=== PATIENT | male | born 1935 | race Caucasian/White ===

== ENCOUNTER 2017-05-24 11:12 | Inpatient (IN) | payer MEDICARE, OTHER ==
[~2017-05-24] VITALS: Ht 162.6 cm; Wt 67.4 kg
[2017-05-24] VITALS (12 sets, daily range): BP systolic 87–122; BP diastolic 45–61; PULSE 60–88; RESP 19–20; Ht 162.6 cm; Wt 67.4 kg
[~2017-05-24 11:12] MED LIST: ACET-2047 PO; ASPI81TA3 PO; CLON-379 PO; DOCU-144 PO; EPO4ESRD SC; FER325 PO; FOLI-49 PO; FOLI1CAP PO; LEVO500T72 PO; NIFE30TA60 PO; OMEP20CA16 PO; POLY17PO6 PO; SENN-8 PO; SEVE800T10 PO; SIME80TA PO
[2017-05-24] MEDS ORDERED: ACETAMINOPHEN 650 MG SUPP PR STA (11:25)
[2017-05-24] MEDS ORDERED: CEFEPIME 2GM/50 ML (PMX) 50 ML IVPB STA (11:25)
[2017-05-24] MEDS ORDERED: VANCOMYCIN 1 GM (PMX) 250 ML IVPB ONE (11:30)
[2017-05-24 11:51] LABS: ADD SCAN DIFF NO
[2017-05-24 12:11] LABS: ABNORMAL IP MESSAGE 1; BASOPHIL # 0.1 10^3/ul (0.0-0.1); BASOPHILS % 0.3 % (0.0-2.0); EOSINOPHILS % 0.1 % (0.0-7.0); HEMATOCRIT 37.7 % (42.0-52.0); HEMOGLOBIN 12.2 g/dl (14.0-18.0); LYMPHOCYTES # 1.7 10^3/ul (0.8-2.9); MEAN CORPUSCULAR HEMOGLOBIN 32.8 pg (29.0-33.0); MEAN CORPUSCULAR HGB CONC 32.4 g/dl (32.0-37.0); MEAN CORPUSCULAR VOLUME 101.3 fl (82.0-101.0); MEAN PLATELET VOLUME 10.8 fl (7.4-10.4); MONOCYTE # 1.8 10^3/ul (0.3-0.9); MONOCYTES % 9.6 % (0.0-11.0); NEUTROPHIL # 14.6 10^3/ul (1.6-7.5); NEUTROPHILS % 76.8 % (39.0-77.0); PLATELET COUNT 168 10^3/UL (140-415); RED BLOOD COUNT 3.72 10^6/ul (4.70-6.10); RED CELL DISTRIBUTION WIDTH 13.9 % (11.5-14.5)
[2017-05-24 12:13] LABS: ALBUMIN 4.2 g/dl (3.3-4.9); CALCIUM 9.3 mg/dl (8.4-10.2); CREATININE 7.59 mg/dl (0.61-1.24); POTASSIUM 4.4 mmol/L (3.5-5.1); TOTAL PROTEIN 7.9 g/dl (6.1-8.1)
[2017-05-24 12:14] LABS: ALBUMIN/GLOBULIN RATIO 1.13
[2017-05-24 12:15] LABS: INR 1.19; PROTIME 15.2 Sec (12.2-14.2); PT RATIO 1.2
[2017-05-24 12:16] LABS: PARTIAL THROMBOPLASTIN TIME 32.5 Sec (25.0-35.0)
[2017-05-24 12:25] LABS: TROPONIN-I 0.076 ng/ml (0.00-0.12)
--- NOTE | 2017-05-24 12:46 | RADRPT ---
PROCEDURE: XR Chest. CLINICAL INDICATION: Possible sepsis. TECHNIQUE: Single frontal view of the chest was obtained. COMPARISON: Chest x-ray 01/01/2016 12:48 p.m. FINDINGS: A dialysis catheter enters from a left internal or left subclavian approach with its tip in the supe rior vena cava and proximal right atrium. Degenerative osteophytes are noted in the thoracic spin e. The heart is enlarged. The cardiomediastinal silhouette and hilar structures are normal. The pu lmonary vasculature is increased. There are vascular calcifications in the aortic arch. There are b ilateral perihilar and basilar infiltrates which obscure the diaphragms. There are bilateral pleura l effusions. IMPRESSION: 1. Cardiomegaly with congestive heart failure interstitial pulmonary edema with bilateral pleural ef fusions. The pulmonary edema has worsened as compared to 01/01/2016. 2. Consolidative infiltrate/atelectasis obscuring the diaphragms. 3. Dialysis catheter near the junction of the right atrium superior vena cava. 4. Spondylosis of the thoracic spine. Or 5 atherosclerosis of the aortic arch. RPTAT:AAJJ Physician Reggie Date Time Electronically viewed and signed by Physician Reggie on 05/24/2017 12:45 BHUPINDER/
[2017-05-24] MEDS ORDERED: ACETAMINOPHEN 325 MG TAB PO PRN ×3 (13:00→14:00)
[2017-05-24] MEDS ORDERED: ONDANSETRON 4 MG INJ IV PRN ×2 (13:00→14:00)
[2017-05-24] MEDS ORDERED: NEPH PO (13:15)
[2017-05-24] MEDS ORDERED: CARV12.579 PO (13:15)
[2017-05-24] MEDS ORDERED: PANT40TA3 PO (13:16)
[2017-05-24] MEDS ORDERED: AMLO-147 PO (13:16)
[2017-05-24] MEDS ORDERED: DOCU-159 PO (13:17)
[2017-05-24] MEDS ORDERED: HYDR-3672 PO (13:18)
[2017-05-24] MEDS ORDERED: LACT20SO2 PO (13:19)
[2017-05-24] MEDS ORDERED: DEXT30DR5 BOTH EYES (13:19)
[2017-05-24] MEDS ORDERED: ENOX30DI10 SQ (13:20)
[2017-05-24] MEDS ORDERED: IPRA3AMP INHALATION (13:21)
[2017-05-24] MEDS ORDERED: ALBU2.5V3 NEB (13:21)
[2017-05-24] MEDS ORDERED: UDROBDM PO (13:23)
[2017-05-24] MEDS ORDERED: OLAN2.5T4 PO (13:23)
[2017-05-24] MEDS ORDERED: NITROGLYCERIN (SL) 0.4 MG TAB SL PRN (14:00)
[2017-05-24] MEDS ORDERED: morphine 2 MG INJ IV PRN (14:00)
[2017-05-24] MEDS ORDERED: MAGNESIUM HYDROXIDE 30ML CUP PO PRN (14:00)
[2017-05-24] MEDS ORDERED: SENNA/DOCUSATE NA (8.6MG/50MG) TAB PO PRN (14:00)
[2017-05-24] MEDS ORDERED: ALBUTEROL/IPRATROPIUM (NEB) 3 ML AMP INH PRN (14:00)
[2017-05-24] MEDS ORDERED: LACTULOSE 30ML CUP PO PRN (14:00)
[2017-05-24] MEDS ORDERED: LORAZEPAM 0.5 MG TAB PO PRN (14:00)
[2017-05-24] MEDS ORDERED: DOCUSATE SODIUM 100 MG CAP PO PRN (14:00)
[2017-05-24] MEDS ORDERED: NACL 0.9% 3 ML SYG IV SCH (14:00)
[2017-05-24] MEDS ORDERED: HYDROCODONE/APAP (5/325) TAB PO PRN (14:00)
[2017-05-24] MEDS ORDERED: VANCOMYCIN IV PER PHARMACY XX SCH (14:00)
[2017-05-24] MEDS ORDERED: ALBUTEROL 0.083% (NEB) 2.5 MG/3 ML AMP NEB PRN (14:00)
[2017-05-24] MEDS ORDERED: NA PHOSPHATE/BIPHOS 133 ML ENEMA PR PRN (14:00)
[2017-05-24] MEDS ORDERED: GUAIFENESIN/DM 5ML CUP PO PRN (14:00)
--- NOTE | 2017-05-24 14:56 | ERA ---
ER Documentation Chief Complaint Date/Time DATE: 05/24/17 TIME: 14:54 Chief Complaint FEVER AND ELEVATED WBC FOR 1 WK. NO COUGH. NO SOB NOTED. NO CHEST PAIN HPI Patient is an 82-year-old male who presents with fever and high white blood cell count. Please note the history and physical exam is limited secondary to the patient's mental status. The patient was transferred from a nursing facility for fever and leukocytosis. His primary doctor is Dr. Bharath Silvestre. He is a DO NOT RESUSCITATE. Upon review of old medical records the patient one previous visit to the ER in 2016. ROS All systems reviewed and are negative except as per history of present illness. Medications Home Meds Reported Medications Olanzapine* (Zyprexa*) 2.5 Mg Tablet, 2.5 MG PO DAILY, #30 TAB 05/24/17 Guaifenesin-Dextromethorphan* (Robitussin* DM) 100MG/10MG/5ML Syrup, 10 ML PO QID Y for COUGH, ML 05/24/17 Ipratropium-Albuterol (Ipratropium-Albuterol) 0.5-3 Mg/3 Ml Ampul.neb, 3 ML INHALATION Q6 Y for WHEEZING AND SOB, #30 VIAL 05/24/17 Albuterol Sulfate* (Albuterol Sulfate* Neb) 0.083%-3 Ml Neb, 2.5 MG NEB QID Y for WHEEZING AND SOB, #30 VIAL 05/24/17 Enoxaparin Sodium* (Lovenox*) 30 Mg/0.3 Ml Disp.syrin, 30 MG SQ DAILY, SYR 05/24/17 Lactulose* (Lactulose*) 20 Gm/30 Ml Solution, 20 GM PO QID Y for CONSTIPATION, ML 05/24/17 Dextran 70/Hypromellose (Artificials Tears Drops) 30 Ml Drops, 1 DROP BOTH EYES QID, BOTTLE 05/24/17 Hydralazine Hcl* (Hydralazine Hcl*) 50 Mg Tab, 50 MG PO Q8, #90 TAB HOLD FOR SBP<110 05/24/17 Docusate Sodium* (Docusate Sodium*) 100 Mg Capsule, 100 MG PO BID, #60 CAP 05/24/17 Amlodipine Besylate* (Amlodipine Besylate*) 10 Mg Tablet, 10 MG PO DAILY, #30 TAB 05/24/17 Pantoprazole* (Protonix*) 40 Mg Tablet.dr, 40 MG PO AC BREAKFAST, TAB 05/24/17 Multivit/Ca Carb/B Cmplx/Fa* (Nohemi-Brendan*) 1 Tab Tab, 1 TAB PO DAILY, TAB 05/24/17 Carvedilol* (Carvedilol*) 12.5 Mg Tablet, 12.5 MG PO BID, #60 TAB HOLD FOR SBP<110 HR <60 05/24/17 Simethicone* (Anti-Gas/80*) 80 Mg Tab.chew, 80 MG PO Q6H Y for DISTENSION/GAS/ BLOATING, TAB.CHEW 01/01/16 Acetaminophen* (Acetaminophen*) 650 Mg Tablet, 650 MG PO Q6H Y for PAIN AND OR ELEVATED TEMP, #30 TAB 01/01/16 Sennosides/Docusate Sodium* (Senna-S*) 1 Tab Tablet, 2 TAB PO QHS Y for CONSTIPATION, TAB 01/01/16 Folic Acid/Vitamin B Comp W-C (Nephrocaps Capsule) 1 Mg Capsule, 1 MG PO DAILY, CAP 01/01/16 Discontinued Reported Medications Polyethylene Glycol* (Miralax*) 17 Gm Powd.pack, 17 GM PO DAILY, #30 PACKET 01/01/16 Ferrous Sulfate* (Ferrous Sulfate*) 325 Mg Tabec, 325 MG PO TID, TAB 01/01/16 Docusate Sodium* (Colace*) 100 Mg Capsule, 100 MG PO BID Y for CONSTIPATION, # 60 CAP 01/01/16 Aspirin* (Aspirin* Chew) 81 Mg Tab.chew, 81 MG PO DAILY, TAB.CHEW 01/01/16 Omeprazole* (Omeprazole*) 20 Mg Capsule.dr, 20 MG PO DAILY, #30 CAP 01/01/16 Sevelamer Hcl* (Renagel*) 800 Mg Tablet, 1600 MG PO WITH MEALS, TAB 01/01/16 Nifedipine* (Nifedipine ER*) 30 Mg Tablet.sa, 30 MG PO DAILY, TAB.SA 01/01/16 Folic Acid* (Folic Acid*) 1 Mg Tablet, 1 MG PO DAILY, TAB 01/01/16 Discontinued Scripts Levofloxacin* (Levaquin*) 500 Mg Tablet, 500 MG PO DAILY for 6 Days, TAB Prov:LASHAWN LINTON V. MICA MINER 01/04/16 Clonidine Hcl* (Clonidine Hcl*) 0.1 Mg Tab, 0.1 MG PO BID for 30 Days, TAB hold for SBP<120 mm hg Prov:LASHAWN LINTON V. MICA MINER 01/04/16 Epoetin Zev (Epogen) 4,000 Units/Ml Soln, 4000 UNITS SC TuThSa@17 for 30 Days Prov:LASHAWN LINTON V. MICA MINER 01/04/16 Allergies Allergies: Coded Allergies: No Known Allergy (Unverified , 05/24/17) PMhx/Soc History of Surgery: Yes (left chest permacath) Anesthesia Reaction: No Hx Neurological Disorder: Yes (dementia) Hx Respiratory Disorders: No Hx Cardiac Disorders: Yes (hypertension) Hx Psychiatric Problems: Yes (dementia) Hx Alcohol Use: No Hx Substance Use: No Hx Tobacco Use: No Smoking Status: Never smoker FmHx Unable to obtain Physical Exam Vitals Vital Signs Date Time Temp Pulse Resp B/P Pulse Ox O2 Delivery O2 Flow Rate FiO2 05/24/17 11:25 Nasal Cannula 3 05/24/17 11:16 98.9 81 22 101/51 99 Physical Exam Const: Chronically ill Head: Atraumatic Eyes: Normal Conjunctiva ENT: Normal External Ears, Nose and Mouth. Neck: Full range of motion..~ No meningismus. Resp: Decreased breath sounds bilaterally Cardio: Regular rate and rhythm, no murmurs Abd: Soft, non tender, non distended. Normal bowel sounds Skin: No petechiae or rashes Back: No midline or flank tenderness Ext: No cyanosis, or edema Neur: Altered and does not respond to voice or commands Result Diagram: 05/24/17 1125 05/24/17 1125 Results 24 hrs Laboratory Tests Test 05/24/17 11:25 White Blood Count 19.010^3/ul Red Blood Count 3.7210^6/ul Hemoglobin 12.2g/dl Hematocrit 37.7% Mean Corpuscular Volume 101.3fl Mean Corpuscular Hemoglobin 32.8pg Mean Corpuscular Hemoglobin Concent 32.4g/dl Red Cell Distribution Width 13.9% Platelet Count 38561^3/UL Mean Platelet Volume 10.8fl Neutrophils % 76.8% Lymphocytes % 9.0% Monocytes % 9.6% Eosinophils % 0.1% Basophils % 0.3% Nucleated Red Blood Cells % 0.0/100WBC Neutrophils # 14.610^3/ul Lymphocytes # 1.710^3/ul Monocytes # 1.810^3/ul Eosinophils # 0.010^3/ul Basophils # 0.110^3/ul Nucleated Red Blood Cells # 0.010^3/ul Prothrombin Time 15.2Sec Prothrombin Time Ratio 1.2 INR International Normalized Ratio 1.19 Activated Partial Thromboplast Time 32.5Sec Sodium Level 142mmol/L Potassium Level 4.4mmol/L Chloride Level 102mmol/L Carbon Dioxide Level 22mmol/L Anion Gap 22 Blood Urea Nitrogen 76mg/dl Creatinine 7.59mg/dl Glucose Level 101mg/dl Lactic Acid Level 1.3mmol/L Calcium Level 9.3mg/dl Total Bilirubin 0.0mg/dl Direct Bilirubin 0.00mg/dl Indirect Bilirubin 0.0mg/dl Aspartate Amino Transf (AST/SGOT) 78IU/L Alanine Aminotransferase (ALT/SGPT) 60IU/L Alkaline Phosphatase 183IU/L Troponin I 0.076ng/ml Total Protein 7.9g/dl Albumin 4.2g/dl Globulin 3.70g/dl Albumin/Globulin Ratio 1.13 Current Medications Medications (Trade) Dose Ordered Sig/Kaden Route PRN Reason Start Time Stop Time Status Last Admin Dose Admin Acetaminophen 650 mg 650 mg ONCE STAT [place] 05/24/17 11:25 05/24/17 11:27 DC 05/24/17 11:36 Cefepime HCl 50 ml @ 100 mls/hr ONCE STAT IVPB 05/24/17 11:25 05/24/17 11:54 DC 05/24/17 11:44 Vancomycin HCl (Vancocin) 250 ml @ 125 mls/hr ONCE ONCE IVPB 05/24/17 11:30 05/24/17 13:29 DC 05/24/17 12:22 Procedures/MDM Chest x-ray shows pneumonia and pulmonary edema per radiology. EKG read by me: Rate/Rhythm: Regular rate and rhythm at a normal rate Intervals: Normal Impression: No evidence of ischemia or arrhythmia Patient is an 82-year-old male presents with fever and leukocytosis likely from pneumonia. The patient was given broad-spectrum antibiotics with vancomycin and cefepime. He is a dialysis patient. At this point I doubt sepsis as there are no sirs criteria other than the elevated white blood cell count. The patient will be admitted to the care of Dr. Hester from the panel team to a medical surgical bed. The patient has a poor prognosis given his age and comorbidities. I doubt pneumothorax or pulmonary embolism. Departure Diagnosis: Primary Impression: Pneumonia Qualified Code: J18.9 - Pneumonia due to infectious organism, unspecified laterality, unspecified part of lung Additional Impressions: Leukocytosis Qualified Code: D72.829 - Leukocytosis, unspecified type Anemia Qualified Code: D64.9 - Anemia, unspecified type Condition: Stable ALCIRA SOOD MD May 24, 2017 14:56
[2017-05-24 16:24] LABS: INR 1.18; PROTIME 15.1 Sec (12.2-14.2); PT RATIO 1.2
[2017-05-24 16:33] LABS: PARTIAL THROMBOPLASTIN TIME 33.7 Sec (25.0-35.0)
--- NOTE | 2017-05-24 16:35 | HP ---
DATE OF ADMISSION: 05/24/2017 CHIEF COMPLAINT: This is an 82-year-old male sent in from [facility] because of fever and elevate d white blood cell count. HISTORY OF PRESENT ILLNESS: An 82-year-old male with past medical history based on records of demen tia, essential hypertension, prior pneumonia healthcare-associated, history of end-stage renal disea se on hemodialysis, who was sent in earlier today from [facility] because of elevated white blood cell count and fever. Most of the information is obtained from the ER documentation as the patient is unable to provide full history and physical presently. He was supposed to get dialysis today, bu t was not able to get that. When he came in today, he was found with elevated white blood cell coun t of 19,000 and chest x-ray showed signs of possible CHF versus pneumonia versus pulmonary edema. T he patient was given a dose of antibiotic as well and breathing treatment. PAST MEDICAL HISTORY: As stated above. ALLERGIES: NO KNOWN DRUG ALLERGIES. HOME MEDICATIONS: Include: 1. Albuterol nebulizers q.i.d. p.r.n. 2. Lovenox 30 mg subcutaneous daily. 3. Amlodipine 10 mg daily. 4. Coreg 12.5 mg b.i.d. 5. Hydralazine 50 mg q.8h. 6. Tylenol 650 p.o. q.6h. p.r.n. 7. Zyprexa 2.5 mg daily. 8. Lactulose 20 grams q.i.d. p.r.n. 9. Robitussin q.i.d. p.r.n. 10. Artificial Tears drops q.i.d. 11. Colace 100 mg b.i.d. 12. Protonix 40 mg every morning. 13. Senna 2 tabs at bedtime p.r.n. 14. Simethicone 80 mg q.6h. p.r.n. 15. Nephrocaps capsule 1 mg daily. 16. Nohemi-Brendan 1 tab daily. SOCIAL HISTORY: Negative for smoking, drinking, or IV drug abuse. PAST SURGICAL HISTORY: He has had a left chest PermCath in the past. FAMILY HISTORY: Unknown. PHYSICAL EXAMINATION: VITAL SIGNS: Today, temperature max 98.9, pulse 81, respirations 22, blood pressure 101/51, saturat ing at 99% nasal cannula. GENERAL: The patient lying in bed, no acute distress. HEENT: Pupils equal, round, react to light. Extraocular muscles intact. NECK: Supple, no thyromegaly. LUNGS: Slightly decreased breath sounds bilaterally. CARDIOVASCULAR: S1, S2 heard. No rubs or gallops. ABDOMEN: Soft, nontender, nondistended. Normal bowel sounds. No rebound or guarding. MUSCULOSKELETAL: No lower extremity edema bilaterally. NEUROLOGIC: Unable to fully assess as the patient is altered. LABORATORY DATA: WBC 19.0, hemoglobin 12.2, hematocrit 37.7, platelets 168. Sodium 142, potassium 4.4, chloride 102, CO2 of 23, BUN 76, creatinine 7.59, glucose 101. The LFTs are essentially normal except the AST is a little high at 78, alkaline phosphatase is 183. We mentioned the chest x-ray r esults. ASSESSMENT AND PLAN: An 82-year-old male coming in with history of end-stage renal disease on dialy sis, and hypertension, who comes in with elevated white blood cell count and fevers, signs of sepsis secondary to pneumonia. 1. Sepsis, again secondary to pneumonia is likely. Admit the patient to medical/surgical floor. G et PT and OT consults. Check TSH, A1c, lipid panel. Recheck a 2D echocardiogram as well. As there are signs of sepsis secondary to pneumonia, there could be a congestive heart failure component as well. The patient will have DuoNeb p.r.n. Put him on broad-spectrum antibiotics, follow up final c ulture results. Tylenol p.r.n. pain and fevers as well. Low-dose IV fluids. 2. History of essential hypertension. Continue current cardiac medications as well. Again, PT and OT consults. 3. Gastrointestinal prophylaxis. He will be on proton pump inhibitor. 4. Deep venous thrombosis prophylaxis, heparin subcutaneously. 5. End-stage renal disease on dialysis. Again, we will get a renal consult. Continue Nohemi-Brendan. Monitor BUN and creatinine levels in the morning daily. Dictated By: AMADOU VAZQUEZ Conf#: [id number] DID#: [id number]
[2017-05-24] MEDS: SOD CHLORIDE 0.45% 1,000 ML IV SCH (16:55)
[2017-05-24] MEDS: PIPER-TAZO 2.25 GM (PMX) 50 ML IVPB SCH ×2 (17:00→22:46)
[2017-05-24] MEDS: ARTIFICIAL TEARS 15 ML OPH BOTH EYES SCH ×2 (17:00→21:30)
[2017-05-24] MEDS ORDERED: PIPER-TAZO 3.375 GM IV (PMX) 100 ML IVPB SCH (18:00)
[2017-05-24] MEDS ORDERED: ALBUMIN HUMAN 25% 100 ML IV ONE (20:00)
[2017-05-24] MEDS ORDERED: HEPARIN 1000 UNITS/ML 10 ML INJ CATHETER ONE (20:00)
[2017-05-24] MEDS: DOCUSATE SODIUM 100 MG CAP PO SCH (21:00)
[2017-05-24] MEDS: HEPARIN 5,000 UNIT/0.5 ML VIAL SC SCH (21:00)
[2017-05-25] MEDS ORDERED: VANCOMYCIN IV PER PHARMACY XX SCH (02:00)
[2017-05-25] MEDS: ALBUTEROL/IPRATROPIUM (NEB) 3 ML AMP HHN PRN (04:41)
[2017-05-25] MEDS: PIPER-TAZO 2.25 GM (PMX) 50 ML IVPB SCH ×3 (05:31→21:50)
[2017-05-25 06:19] LABS: ADD SCAN DIFF NO
[2017-05-25 06:20] LABS: CHOL/HDL RATIO 6.1 RATIO
[2017-05-25] MEDS: PANTOPRAZOLE (EC) 40 MG TAB PO SCH (06:32)
[2017-05-25 06:43] LABS: BASOPHILS % 0.2 % (0.0-2.0); EOSINOPHILS # 0.1 10^3/ul (0.0-0.5); EOSINOPHILS % 0.7 % (0.0-7.0); HEMATOCRIT 33.5 % (42.0-52.0); HEMOGLOBIN 10.8 g/dl (14.0-18.0); LYMPHOCYTES # 1.7 10^3/ul (0.8-2.9); LYMPHOCYTES % 10.3 % (15.0-51.0); MEAN CORPUSCULAR HEMOGLOBIN 32.1 pg (29.0-33.0); MEAN CORPUSCULAR HGB CONC 32.2 g/dl (32.0-37.0); MEAN CORPUSCULAR VOLUME 99.7 fl (82.0-101.0); MONOCYTE # 1.3 10^3/ul (0.3-0.9); MONOCYTES % 8.2 % (0.0-11.0); NEUTROPHIL # 12.9 10^3/ul (1.6-7.5); NEUTROPHILS % 79.7 % (39.0-77.0); PLATELET COUNT 152 10^3/UL (140-415); RED BLOOD COUNT 3.36 10^6/ul (4.70-6.10); RED CELL DISTRIBUTION WIDTH 13.7 % (11.5-14.5); WHITE BLOOD COUNT 16.2 10^3/ul (4.8-10.8)
[2017-05-25 06:52] LABS: THYROID STIMULATING HORMONE 2.05 MIU/L (0.465-4.680)
[2017-05-25 07:36] LABS: CALCIUM 8.7 mg/dl (8.4-10.2); CREATININE 4.77 mg/dl (0.61-1.24); MAGNESIUM 2.3 mg/dl (1.7-2.5); PHOSPHORUS 4.3 mg/dl (2.5-4.9)
[2017-05-25 07:55] VITALS: BP 124/60; RESP 22
[2017-05-25] MEDS: OLANZAPINE 2.5 MG TAB PO SCH (09:00)
[2017-05-25] MEDS: DOCUSATE SODIUM 100 MG CAP PO SCH ×2 (09:00→20:34)
[2017-05-25] MEDS: MULTIVIT/CA CARB/B CMPLX/FA TAB PO SCH (09:00)
[2017-05-25] MEDS: AMLODIPINE 10 MG TAB PO SCH (09:00)
[2017-05-25] MEDS ORDERED: NON-FORMULARY/PATIENT OWN MED (Folic Acid/Vitamin B Comp W-C (Nephrocaps Capsule) 1 MG) PO SCH (09:00)
[2017-05-25] MEDS: ARTIFICIAL TEARS 15 ML OPH BOTH EYES SCH ×4 (10:05→20:22)
[2017-05-25] MEDS: SOD CHLORIDE 0.45% 1,000 ML IV SCH ×3 (10:05→23:11)
[2017-05-25] MEDS: HEPARIN 5,000 UNIT/0.5 ML VIAL SC SCH ×2 (10:06→20:24)
[2017-05-25 13:53] VITALS: BP 106/58; PULSE 86; RESP 18
--- NOTE | 2017-05-25 15:28 | CONS ---
DATE OF ADMISSION: 05/24/2017 DATE OF CONSULTATION: TYPE OF CONSULTATION: Nephrology. REASON FOR CONSULTATION: End-stage renal disease. PHYSICIAN REQUESTING CONSULT: Dr. Redding. HISTORY OF PRESENT ILLNESS: This is an 82-year-old male with a past medical history of end-stage re nal disease on dialysis Friday, and Friday, access Perm-A-Cath, history of dementia, hyp ertension who presents to [facility] from his [place] [facility] with fevers. The patie nt's history is obtained by reviewing medical records as patient himself is unable to provide histor y. The patient upon arrival to the emergency room had laboratory data drawn, which showed a white count of 19,000. The patient had a chest x-ray which showed findings of cardiomegaly, CHF, atelectasis. The patient had blood cultures drawn in the emergency room which grew out gram-positive cocci. The patient was started on IV antibiotics and admitted to telemetry. While on telemetry, the patient r eceived hemodialysis, tolerated well. No other acute events noted. There have been no reports of h emoptysis, hematemesis or hematochezia. PAST MEDICAL HISTORY: As stated above, history of end-stage renal disease, hypertension, dementia, anemia. PAST SURGICAL HISTORY: Status post PermCath placement. FAMILY HISTORY: Unknown. SOCIAL HISTORY: No alcohol or drug use. Lives at a skilled nurse facility. MEDICATIONS: The patient's home medications have been reviewed. REVIEW OF SYSTEMS: Unable to do adequate review of systems as patient is altered. Pertinent positi ves in HPI, otherwise negative. PHYSICAL EXAMINATION: VITAL SIGNS: Blood pressure 120/76, respiration is 16, pulse 81, temperature 98.9. HEENT: Head is normocephalic. Pupils are reactive to light. NECK: Supple. HEART: Regular rate. LUNGS: Show diminished breath sounds at base. ABDOMEN: Soft, nontender to palpation without rebound or guarding. EXTREMITIES: Negative for clubbing, cyanosis, or edema. DERMATOLOGIC: No rashes. MUSCULOSKELETAL: No joint effusions. NEUROLOGIC: Limited exam due to lack of patient cooperation. LABORATORY DATA: Shows sodium 138, potassium 4.0, chloride 98, BUN 50, creatinine 4.77. White coun t 15.2, hemoglobin 10.8, hematocrit 33.5, platelet count 152. The patient's INR is reviewed. ASSESSMENT AND PLAN: This is an 82-year-old male who presents with: 1. End-stage renal disease. The patient is on dialysis Friday, and Friday. The patien t is status post hemodialysis with approximately 1 liter removed. Plan at this point is to continue to monitor for dialytic needs. Anticipate hemodialysis tomorrow again for 3 hours, 3K bath, calciu m 2.5, ultrafiltrate as tolerated. 2. Sepsis with gram-positive bacteremia. Concerning for possible line infection. The patient's ch est x-ray shows possible pneumonia. Plan at this point is to continue current antibiotic therapy. Would recommend ID consult for evaluation. The patient may require a Perm-A-Cath removal if bactere valerie does not improve. 3. Anemia. Continue to monitor hemoglobin and hematocrit levels. hemodialysis. 4. Mineral bone disorder, monitor calcium and phosphorus levels. 5. Encephalopathy, acute on chronic. Will continue to monitor. Continue current medical managemen t. 6. Hypertension. Continue current blood pressure regimen. 7. Gastrointestinal and deep venous thrombosis prophylaxis. Please see her Thank you, Dr. Redding, for this interesting consult. It will be a pleasure to follow p atient with you throughout the hospital course. Dictated By: RAYMOND PORRAS/GEORGE Conf#: [id number] DID#: [id number]
--- NOTE | 2017-05-25 15:31 | RADRPT ---
Echocardiogram Report Patient Name: PAUL CORDOVA Gender: Male Date: 1935 Study Date: 25-May-2017 Dermatology Nurse: MAGY Location: I Ref. Physician: AMADOU LOU Quality: Technically Difficult Study Procedures: Transthoracic echocardiogram with complete 2D, M-Mode, and Doppler examination. Indications: Congestive Heart Failure. 2D/M Mode Doppler Measurement Value Normal Ranges Measurement Value Normal Ranges AoR Diam MM 3.3 cm AV Peak Jose J 1.4 m/sec ACS MM 1.7 cm AV Peak PG 8.2 mmHg LVIDd 2D 3.5 3.5 - 5.6 cm LVOT Peak Jose J 0.9 m/sec LVIDs 2D 2.3 2.1 - 4.1 cm LVOT Peak PG 3.0 mmHg LVPWd 2D 1.2 0.6 - 1.1 cm MV E Peak Jose J 0.8 m/sec IVSd 2D 1.2 0.6 - 1.1 cm MV A Peak Jose J 1.1 m/sec EDV 2D 51.1 cm3 MV E/A 0.7 ESV 2D 11.9 cm3 MV Decel Time 185 msec LA Dimen 2D 2.8 2.3 - 4.0 cm MV Decel Pratt 4 MV E/A 0.7 PV Peak Jose J 0.8 m/sec PV Peak PG 2.0 mmHg Findings Left Ventricle: Normal left ventricular systolic function. Normal left ventricular cavity size. Mild concentric left ventricular hypertrophy. Ejection fraction is visually estimated at 60 %. Tissue Doppler/Mitral Doppler indices are consistent with impaired relaxation (Stage I diastolic dysfunction). E/E`=12. E`=7 cm/s. Right Ventricle: Normal right ventricular size. Normal right ventricular systolic function. Left Atrium: The left atrium is normal in size. Right Atrium: The right atrium is normal in size. Atrial Septum: Normal atrial septum. Mitral Valve: Normal appearance of the mitral valve. Mild mitral annular calcification. Trace mitral regurgitation. Aortic Valve: No significant aortic stenosis or insufficiency. Normal trileaflet aortic valve structure. Tricuspid Valve: Normal appearance of the tricuspid valve. No evidence of tricuspid regurgitation. Pulmonic Valve: Normal pulmonic valve appearance. There is trace pulmonic regurgitation. Pericardium: Normal pericardium with no significant pericardial effusion. No pleural effusion noted. Aorta: Normal aortic root. IVC: Normal size and normal respiratory collapse consistent with normal right atrial pressure. Pulmonary Artery: Normal pulmonary artery size. Conclusions 1.The left ventricle is normal in size and systolic function. 2.Estimated left ventricular ejection fraction of 60-65%. 3.Mild concentric left ventricular hypertrophy. Grade 1 diastolic dysfunction. Electronically Signed By: Jluis Laguerre 25-May-2017 15:30:03 -0700 Patient Name: PAUL CORDOVA Study Date: 25-May-2017 [id number]
--- NOTE | 2017-05-25 16:59 | PN ---
Date/Time of Note Date/Time of Note DATE: 05/25/17 TIME: 16:55 Assessment/Plan VTE Prophylaxis VTE Prophylaxis Intervention: heparin Lines/Catheters IV [facility] (from [facility] Peripheral IV Urinary Cath still in place: No Assessment/Plan Chief Complaint/Hosp Course ASSESSMENT AND PLAN: 82-year-old male coming in with history of end-stage renal disease on dialysis, and hypertension, who comes in with elevated white blood cell count and fevers, signs of sepsis secondary to pneumonia. 1. Sepsis -, again secondary to pneumonia is likely. WBC trending down. ECHO performed, EF = 65% - f/u PT and OT consults. - continue DuoNeb p.r.n. - continue broad-spectrum antibiotics, follow up final culture results. - Tylenol p.r.n. pain and fevers as well. - Low-dose IV fluids. 2. History of essential hypertension. Continue current cardiac medications as well. Again, PT and OT consults. 3. Gastrointestinal prophylaxis -proton pump inhibitor. 4. Deep venous thrombosis prophylaxis, heparin subcutaneously. 5. End-stage renal disease on dialysis - f/u renal consult rec's. - Continue Nohemi-Brendan. - Monitor BUN and creatinine levels in the morning daily. Problems: Subjective 24 Hr Interval Summary Free Text/Dictation No acute events overnight, had HD yesterday. Exam/Review of Systems Vital Signs Vitals Vital Signs Date Time Temp Pulse Resp B/P Pulse Ox O2 Delivery O2 Flow Rate FiO2 05/25/17 13:53 86 18 106/58 05/25/17 08:00 Nasal Cannula 05/25/17 07:55 98.7 92 05/25/17 04:48 2.0 Intake and Output 05/24/17 05/24/17 05/25/17 15:00 23:00 07:00 Intake Total 600 ml 990 ml Output Total 600 ml 0 ml Balance 0 ml 990 ml Exam GENERAL: The patient lying in bed, no acute distress. HEENT: Pupils equal, round, react to light. Extraocular muscles intact. NECK: Supple, no thyromegaly. LUNGS: Slightly decreased breath sounds bilaterally. CARDIOVASCULAR: S1, S2 heard. No rubs or gallops. ABDOMEN: Soft, nontender, nondistended. Normal bowel sounds. No rebound or guarding. MUSCULOSKELETAL: No lower extremity edema bilaterally. NEUROLOGIC: Unable to fully assess as the patient is altered. Results Result Diagram: 05/25/17 0435 05/25/17 0435 Results 24 hrs Laboratory Tests Test 05/25/17 04:35 White Blood Count 16.2 H Red Blood Count 3.36 L Hemoglobin 10.8 L Hematocrit 33.5 L Mean Corpuscular Volume 99.7 Mean Corpuscular Hemoglobin 32.1 Mean Corpuscular Hemoglobin Concent 32.2 Red Cell Distribution Width 13.7 Platelet Count 152 Mean Platelet Volume 11.0 H Neutrophils % 79.7 H Lymphocytes % 10.3 L Monocytes % 8.2 Eosinophils % 0.7 Basophils % 0.2 Nucleated Red Blood Cells % 0.0 Neutrophils # 12.9 H Lymphocytes # 1.7 Monocytes # 1.3 H Eosinophils # 0.1 Basophils # 0.0 Nucleated Red Blood Cells # 0.0 Sodium Level 138 Potassium Level 4.0 Chloride Level 98 Carbon Dioxide Level 25 Anion Gap 19 H Blood Urea Nitrogen 50 H Creatinine 4.77 #H Glucose Level 91 Hemoglobin A1c 4.9 Calcium Level 8.7 Phosphorus Level 4.3 Magnesium Level 2.3 Triglycerides Level 123 Cholesterol Level 110 LDL Cholesterol, Calculated 67 HDL Cholesterol 18 L Cholesterol/HDL Ratio 6.1 Thyroid Stimulating Hormone (TSH) 2.050 Medications Medications Current Medications Ondansetron HCl (Zofran Inj) 4 mg Q6H PRN IV NAUSEA AND/OR VOMITING; Start at 14:00 Acetaminophen (Tylenol Tab) 650 mg Q6H PRN PO PAIN LEVEL 1-3 OR FEVER; Start at 14:00 Acetaminophen/ Hydrocodone Bitart ([place] (5/325)) 1 tab Q6H PRN PO MODERATE PAIN LEVEL 4-6; Start 05/24/17 at 14:00 Morphine Sulfate (morphine) 2 mg Q4H PRN IV SEVERE PAIN LEVEL 7-10; Start 05/24 at 14:00 Docusate Sodium (Colace) 100 mg Q12H PRN PO CONSTIPATION; Start 05/24/17 at 14: 00 Magnesium Hydroxide (Milk Of Mag) 30 ml DAILY PRN PO CONSTIPATION; Start at 14:00 Sodium Biphosphate/ Sodium Phosphate (Fleet Enema) 133 ml DAILY PRN [place] CONSTIPATION; Start 05/24/17 at 14:00 Heparin Sodium (Porcine) 5000 unit 5,000 unit Q12 SC Last administered on 10:06; Admin Dose 5,000 UNIT; Start 05/24/17 at 21:00 Sodium Chloride (1/2 NS) 1,000 ml @ 75 mls/hr [id number] IV Last administered on 05/25/17 10:05; Admin Dose 75 MLS/HR; Start 05/24/17 at 13:52 Lorazepam (Ativan) 0.5 mg Q6H PRN PO ANXIETY; Start 05/24/17 at 14:00 Vancomycin HCl (Vanco Iv Per Pharmacy) VANCOMYCIN PER PHARMACY NOTE XX ; Start 05/24/17 at 14:00 Hydralazine HCl (Apresoline) 10 mg Q6H PRN IV ELEVATED BLOOD PRESSURE; Start at 14:00 Nitroglycerin (Nitroglycerin (Sl Tab) 0.4 Mg) 1 tab Q5M PRN SL ANGINA; Start at 14:00 Amlodipine Besylate (Norvasc) 10 mg DAILY PO ; Start 05/25/17 at 09:00 Carvedilol (Coreg) 12.5 mg BID PO ; Start 05/24/17 at 21:00 Docusate Sodium (Colace) 100 mg BID PO ; Start 05/24/17 at 21:00 Guaifenesin/ Dextromethorphan (Robitussin Dm Liquid Cup) 10 ml QID PRN PO COUGH ; Start 05/24/17 at 14:00 Hydralazine HCl (Apresoline) 50 mg Q8 PO ; Start 05/24/17 at 14:00 Lactulose (Enulose) 20 gm QID PRN PO CONSTIPATION; Start 05/24/17 at 14:00 Multivit/Ca Carb/ B Cmplx/FA/Prenat (Nohemi-Brendan) 1 tab DAILY PO ; Start 05/25/17 at 09:00 Olanzapine (Zyprexa) 2.5 mg DAILY PO ; Start 05/25/17 at 09:00 Senna/Docusate Sodium (Senokot-S) 2 tab QHS PRN PO CONSTIPATION; Start at 14:00 Simethicone (Mylicon) 80 mg Q6H PRN PO DISTENSION/GAS/BLOATING; Start 05/24/17 at 14:00 Eye Lubricant 1 drop 1 drop QID BOTH EYES Last administered on 05/25/17 13:50 ; Admin Dose 1 DROP; Start 05/24/17 at 17:00 Piperacillin Sod/ Tazobactam Sod (Zosyn 2.25gm/ 50ml (Pmx)) 50 ml @ 100 mls/hr Q8 IVPB Last administered on 05/25/17 13:52; Admin Dose 100 MLS/HR; Start at 16:00 Miscellaneous Information (*Rx Drug Level Order Reminder*) RANDOM VANCOMYCIN LEVEL 6... ONCE ONCE XX ; Start 05/26/17 at 05:00; Stop 05/26/17 at 05:01 AMADOU LOU May 25, 2017 16:59
[2017-05-25 20:01] VITALS: BP 123/57; RESP 19
[2017-05-26] VITALS (9 sets, daily range): BP systolic 106–131; BP diastolic 57–72; PULSE 74–91; RESP 22–23
[2017-05-26] MEDS: PIPER-TAZO 2.25 GM (PMX) 50 ML IVPB SCH ×3 (05:23→21:00)
[2017-05-26] MEDS: PANTOPRAZOLE (EC) 40 MG TAB PO SCH (06:37)
[2017-05-26 07:09] LABS: ADD SCAN DIFF NO
[2017-05-26 07:11] LABS: BASOPHIL # 0.1 10^3/ul (0.0-0.1); BASOPHILS % 0.3 % (0.0-2.0); EOSINOPHILS # 0.1 10^3/ul (0.0-0.5); EOSINOPHILS % 0.5 % (0.0-7.0); HEMATOCRIT 34.9 % (42.0-52.0); HEMOGLOBIN 11.3 g/dl (14.0-18.0); LYMPHOCYTES # 2.6 10^3/ul (0.8-2.9); MEAN CORPUSCULAR HEMOGLOBIN 32.1 pg (29.0-33.0); MEAN CORPUSCULAR HGB CONC 32.4 g/dl (32.0-37.0); MEAN CORPUSCULAR VOLUME 99.1 fl (82.0-101.0); MONOCYTE # 1.4 10^3/ul (0.3-0.9); MONOCYTES % 7.6 % (0.0-11.0); NEUTROPHILS % 76.3 % (39.0-77.0); PLATELET COUNT 165 10^3/UL (140-415); RED BLOOD COUNT 3.52 10^6/ul (4.70-6.10); RED CELL DISTRIBUTION WIDTH 13.8 % (11.5-14.5); WHITE BLOOD COUNT 18.4 10^3/ul (4.8-10.8)
[2017-05-26 08:29] LABS: CALCIUM 8.5 mg/dl (8.4-10.2); POTASSIUM 4.5 mmol/L (3.5-5.1)
[2017-05-26] MEDS: DOCUSATE SODIUM 100 MG CAP PO SCH ×2 (08:37→20:55)
[2017-05-26] MEDS: OLANZAPINE 2.5 MG TAB PO SCH (08:38)
[2017-05-26] MEDS: MULTIVIT/CA CARB/B CMPLX/FA TAB PO SCH (08:38)
[2017-05-26] MEDS: AMLODIPINE 10 MG TAB PO SCH (08:38)
[2017-05-26] MEDS: ARTIFICIAL TEARS 15 ML OPH BOTH EYES SCH ×4 (08:48→20:55)
[2017-05-26] MEDS: HEPARIN 5,000 UNIT/0.5 ML VIAL SC SCH ×2 (08:49→20:55)
--- NOTE | 2017-05-26 10:50 | PN ---
Date/Time of Note Date/Time of Note DATE: 05/26/17 TIME: 10:40 Assessment/Plan VTE Prophylaxis VTE Prophylaxis Intervention: heparin Lines/Catheters IV [facility]ter Type (from [facility]): Peripheral IV Urinary Cath still in place: No Assessment/Plan Assessment/Plan 82-year-old male who [facility] and leukocytosis now managed as follows: 1. Sepsis secondary to #7 and #2 2. Bilateral perihilar and basilar pneumonia 3. Fluid overload with interstitial pulmonary edema and bilateral pleural effusions with preserved EF on echo 4. End-stage renal disease on hemodialysis 5. Rule out an acute coronary syndrome 6. Chronic normocytic anemia 7. Staph aureus bacteremia r/o line sepsis 8. DO NOT RESUSCITATE 9. Dyslipidemia with low HDL 10. Chronic dementia with intermittent agitation PLAN: * Continue broad-spectrum antibiotics with vancomycin and Zosyn/ID consultation /patient may have line sepsis and may need permacath removed * Blood pressure is excellently controlled on amlodipine/Coreg/hydralazine * hold olanzapine and ativan for now * IV fluids normal saline at 75 cc an hour * Appreciate nephrology input / patient continues on hemodialysis in-house * Will discuss goals of care and obtain palliative care consultation if family consents Prophylaxis with heparin and p.o. Protonix. Subjective 24 Hr Interval Summary Free Text/Dictation eyes open but unresponsive , currently on HD Subjective hx not possible: pt non-verbal Exam/Review of Systems Vital Signs Vitals Vital Signs Date Time Temp Pulse Resp B/P Pulse Ox O2 Delivery O2 Flow Rate FiO2 05/26/17 08:16 99.2 86 23 130/63 95 05/26/17 02:13 2.0 05/25/17 20:00 Nasal Cannula Intake and Output 05/25/17 05/25/17 05/26/17 15:00 23:00 07:00 Intake Total 150 ml 575 ml 975 ml Output Total 0 ml Balance 150 ml 575 ml 975 ml Exam GENERAL: The patient lying in bed, no acute distress. looks comfortable, but unresponsive HEENT: Pupils equal, round, react to light. Extraocular muscles intact. NECK: Supple, no thyromegaly. LUNGS: Slightly decreased breath sounds bilaterally. CARDIOVASCULAR: S1, S2 heard. No rubs or gallops. ABDOMEN: Soft, nontender, nondistended. Normal bowel sounds. No rebound or guarding. MUSCULOSKELETAL: No lower extremity edema bilaterally. NEUROLOGIC: Unable to fully assess as the patient is altered. Results Result Diagram: 05/26/1752305/26/17 0524 Results 24 hrs Laboratory Tests Test 05/26/17 05:24 05/26/17 05:40 White Blood Count 18.4 H Red Blood Count 3.52 L Hemoglobin 11.3 L Hematocrit 34.9 L Mean Corpuscular Volume 99.1 Mean Corpuscular Hemoglobin 32.1 Mean Corpuscular Hemoglobin Concent 32.4 Red Cell Distribution Width 13.8 Platelet Count 165 Mean Platelet Volume 11.0 H Neutrophils % 76.3 Lymphocytes % 14.0 L Monocytes % 7.6 Eosinophils % 0.5 Basophils % 0.3 Nucleated Red Blood Cells % 0.0 Neutrophils # 14.0 H Lymphocytes # 2.6 Monocytes # 1.4 H Eosinophils # 0.1 Basophils # 0.1 Nucleated Red Blood Cells # 0.0 Sodium Level 136 Potassium Level 4.5 Chloride Level 100 Carbon Dioxide Level 17 L Anion Gap 24 H Blood Urea Nitrogen 70 H Creatinine 6.00 H Glucose Level 70 Calcium Level 8.5 Random Vancomycin Level 9.9 Medications Medications Current Medications Ondansetron HCl (Zofran Inj) 4 mg Q6H PRN IV NAUSEA AND/OR VOMITING; Start at 14:00 Acetaminophen (Tylenol Tab) 650 mg Q6H PRN PO PAIN LEVEL 1-3 OR FEVER; Start at 14:00 Acetaminophen/ Hydrocodone Bitart ([place] (5/325)) 1 tab Q6H PRN PO MODERATE PAIN LEVEL 4-6; Start 05/24/17 at 14:00 Morphine Sulfate (morphine) 2 mg Q4H PRN IV SEVERE PAIN LEVEL 7-10; Start 05/24 at 14:00 Docusate Sodium (Colace) 100 mg Q12H PRN PO CONSTIPATION; Start 05/24/17 at 14: 00 Magnesium Hydroxide (Milk Of Mag) 30 ml DAILY PRN PO CONSTIPATION; Start at 14:00 Sodium Biphosphate/ Sodium Phosphate (Fleet Enema) 133 ml DAILY PRN [place] CONSTIPATION; Start 05/24/17 at 14:00 Heparin Sodium (Porcine) 5000 unit 5,000 unit Q12 SC Last administered on t 08:49; Admin Dose 5,000 UNIT; Start 05/24/17 at 21:00 Sodium Chloride (1/2 NS) 1,000 ml @ 75 mls/hr [id number] IV Last administered on 05/25/17 23:11; Admin Dose 75 MLS/HR; Start 05/24/17 at 13:52 Lorazepam (Ativan) 0.5 mg Q6H PRN PO ANXIETY; Start 05/24/17 at 14:00 Vancomycin HCl (Vanco Iv Per Pharmacy) VANCOMYCIN PER PHARMACY NOTE XX ; Start 05/24/17 at 14:00 Hydralazine HCl (Apresoline) 10 mg Q6H PRN IV ELEVATED BLOOD PRESSURE; Start at 14:00 Nitroglycerin (Nitroglycerin (Sl Tab) 0.4 Mg) 1 tab Q5M PRN SL ANGINA; Start at 14:00 Amlodipine Besylate (Norvasc) 10 mg DAILY PO ; Start 05/25/17 at 09:00 Carvedilol (Coreg) 12.5 mg BID PO ; Start 05/24/17 at 21:00 Docusate Sodium (Colace) 100 mg BID PO ; Start 05/24/17 at 21:00 Guaifenesin/ Dextromethorphan (Robitussin Dm Liquid Cup) 10 ml QID PRN PO COUGH ; Start 05/24/17 at 14:00 Hydralazine HCl (Apresoline) 50 mg Q8 PO ; Start 05/24/17 at 14:00 Lactulose (Enulose) 20 gm QID PRN PO CONSTIPATION; Start 05/24/17 at 14:00 Multivit/Ca Carb/ B Cmplx/FA/Prenat (Nohemi-Brnedan) 1 tab DAILY PO ; Start 05/25/17 at 09:00 Olanzapine (Zyprexa) 2.5 mg DAILY PO ; Start 05/25/17 at 09:00 Senna/Docusate Sodium (Senokot-S) 2 tab QHS PRN PO CONSTIPATION; Start at 14:00 Simethicone (Mylicon) 80 mg Q6H PRN PO DISTENSION/GAS/BLOATING; Start 05/24/17 at 14:00 Eye Lubricant 1 drop 1 drop QID BOTH EYES Last administered on 6/26/17at 08:48 ; Admin Dose 1 DROP; Start 05/24/17 at 17:00 Piperacillin Sod/ Tazobactam Sod (Zosyn 2.25gm/ 50ml (Pmx)) 50 ml @ 100 mls/hr Q8 IVPB Last administered on 05/26/17t 05:23; Admin Dose 100 MLS/HR; Start at 16:00 DIONISIO SHANNON May 26, 2017 10:50
[2017-05-26 12:38] LABS: CK-MB 0.4 ng/ml (0.0-2.4)
[2017-05-26] MEDS ORDERED: VANCOMYCIN 1 GM in NS 250 ML IVPB SCH (13:00)
[2017-05-26 13:40] LABS: TROPONIN-I 0.023 ng/ml (0.00-0.12)
--- NOTE | 2017-05-26 14:08 | PN ---
DATE: 05/26/2017 SUBJECTIVE: The patient remains confused. No other acute events noted. The patient is pending francy lysis today. OBJECTIVE: VITAL SIGNS: Blood pressure is 130/63, respiration 23, pulse 86, temperature 99.2. HEENT: Head is normocephalic. Pupils are reactive to light. NECK: Supple. HEART: Regular rate. LUNGS: Show diminished breath sounds at base. ABDOMEN: Soft, nontender to palpation. No rebound or guarding. EXTREMITIES: Negative for clubbing, cyanosis, no edema. DERMATOLOGIC: No rashes. MUSCULOSKELETAL: No joint effusions. NEUROLOGIC: No change in exam. MEDICATIONS: Have been reviewed. LABORATORY DATA: Shows sodium 136, potassium 4.5, BUN 70, creatinine 6.0. White count 18.4, hemogl obin 9.3, hematocrit 34.9, platelet count is 165. ASSESSMENT AND PLAN: 1. End-stage renal disease. The patient is on dialysis Friday, , and Friday. Currently off schedule. Plan for dialysis today for 3 hours, 3K bath, calcium 2.5. 2. Sepsis with gram-positive bacteremia. Etiology is concerning for possible line infection. Othe r possibilities include pneumonia. Plan is to draw blood cultures from PermCath. We will repeat pe ripheral blood cultures. We will continue antibiotic therapy. The patient may require exchange of PermCath. We will follow up with primary team and infectious disease for recommendations. 3. Anemia. Continue to monitor H and H levels. Continue Epogen with dialysis. 4. Mineral bone disease. Continue to monitor calcium and phosphorus levels. 5. Acute on chronic encephalopathy. Etiology is toxic metabolic. Continue to monitor. 6. Hypertension. Continue current blood pressure regimen. 7. Gastrointestinal and deep venous thrombosis prophylaxis. Dictated By: RAYMOND PORRAS/GEORGE Conf#: [id number] DID#: [id number]
--- NOTE | 2017-05-26 16:33 | CONS ---
Date/Time of Note Date/Time of Note DATE: 05/26/17 TIME: 16:25 Assessment/Plan Assessment/Plan Additional Assessment/Plan Goals of Care to be discussed with family. I understand tom is and a daughter who were here earlier today... will schedule family conference as early as possible. Consultation Date/Type/Reason Admit Date/Time May 24, 2017 at 12:52 Date of Consultation: May 26, 2017 Type of Consultation: Palliative Care Reason for Consultation Establish Goals of Care Hx of Present Illness 82 yo male resident of [facility] sent for sepsisi syndrome. Underlying dementia to be explored further with family members. ESRD on Hemodialysis Bilateral PNA F/E disorders Incomplete data base Cannot obtain Past Surgical History Past Surgical Hx: other Social History Smoking Status: Never smoker Exam/Review of Systems Vital Signs Vitals Vital Signs Date Time Temp Pulse Resp B/P Pulse Ox O2 Delivery O2 Flow Rate FiO2 05/26/17 11:12 3.0 05/26/17 10:30 Nasal Cannula 05/26/17 08:16 99.2 86 23 130/63 95 Intake and Output 05/25/17 05/25/17 05/26/17 15:00 23:00 07:00 Intake Total 150 ml 575 ml 975 ml Output Total 0 ml Balance 150 ml 575 ml 975 ml Exam Constitutional: other (non communicative) Head: atraumatic, normocephalic ENMT: nl external ears & nose, nl lips & teeth, nl nasal mucosa & septum Neck: non-tender, supple Respiratory: congested cough, diminished breath sounds Cardiovascular: nl pulses, regular rate and rhythm Genitourinary - Male: No CVA tenderness, No discharge, No nl penis, No nl scrotum, No other Extremities: normal pulses Results Result Diagram: 05/26/1752305/26/1724 Results 24 hrs Laboratory Tests Test 05/26/17 05:24 05/26/17 05:40 05/26/17 11:00 White Blood Count 18.4 H Red Blood Count 3.52 L Hemoglobin 11.3 L Hematocrit 34.9 L Mean Corpuscular Volume 99.1 Mean Corpuscular Hemoglobin 32.1 Mean Corpuscular Hemoglobin Concent 32.4 Red Cell Distribution Width 13.8 Platelet Count 165 Mean Platelet Volume 11.0 H Neutrophils % 76.3 Lymphocytes % 14.0 L Monocytes % 7.6 Eosinophils % 0.5 Basophils % 0.3 Nucleated Red Blood Cells % 0.0 Neutrophils # 14.0 H Lymphocytes # 2.6 Monocytes # 1.4 H Eosinophils # 0.1 Basophils # 0.1 Nucleated Red Blood Cells # 0.0 Sodium Level 136 Potassium Level 4.5 Chloride Level 100 Carbon Dioxide Level 17 L Anion Gap 24 H Blood Urea Nitrogen 70 H Creatinine 6.00 H Glucose Level 70 Calcium Level 8.5 Random Vancomycin Level 9.9 Creatine Kinase 22 L Creatine Kinase Index 1.8 Creatinine Kinase MB (Mass) 0.40 Troponin I 0.023 Medications Medications Current Medications Ondansetron HCl (Zofran Inj) 4 mg Q6H PRN IV NAUSEA AND/OR VOMITING; Start at 14:00 Acetaminophen (Tylenol Tab) 650 mg Q6H PRN PO PAIN LEVEL 1-3 OR FEVER; Start at 14:00 Acetaminophen/ Hydrocodone Bitart ([place] (5/325)) 1 tab Q6H PRN PO MODERATE PAIN LEVEL 4-6; Start 05/24/17 at 14:00 Morphine Sulfate (morphine) 2 mg Q4H PRN IV SEVERE PAIN LEVEL 7-10; Start 05/24 at 14:00 Docusate Sodium (Colace) 100 mg Q12H PRN PO CONSTIPATION; Start 05/24/17 at 14: 00 Magnesium Hydroxide (Milk Of Mag) 30 ml DAILY PRN PO CONSTIPATION; Start at 14:00 Sodium Biphosphate/ Sodium Phosphate (Fleet Enema) 133 ml DAILY PRN [place] CONSTIPATION; Start 05/24/17 at 14:00 Heparin Sodium (Porcine) 5000 unit 5,000 unit Q12 SC Last administered on 08:49; Admin Dose 5,000 UNIT; Start 05/24/17 at 21:00 Sodium Chloride (1/2 NS) 1,000 ml @ 75 mls/hr [id number] IV Last administered on 05/25/17 23:11; Admin Dose 75 MLS/HR; Start 05/24/17 at 13:52 Lorazepam (Ativan) 0.5 mg Q6H PRN PO ANXIETY; Start 05/24/17 at 14:00 Vancomycin HCl (Vanco Iv Per Pharmacy) VANCOMYCIN PER PHARMACY NOTE XX ; Start 05/24/17 at 14:00 Hydralazine HCl (Apresoline) 10 mg Q6H PRN IV ELEVATED BLOOD PRESSURE; Start at 14:00 Nitroglycerin (Nitroglycerin (Sl Tab) 0.4 Mg) 1 tab Q5M PRN SL ANGINA; Start at 14:00 Amlodipine Besylate (Norvasc) 10 mg DAILY PO ; Start 05/25/17 at 09:00 Carvedilol (Coreg) 12.5 mg BID PO ; Start 05/24/17 at 21:00 Docusate Sodium (Colace) 100 mg BID PO ; Start 05/24/17 at 21:00 Guaifenesin/ Dextromethorphan (Robitussin Dm Liquid Cup) 10 ml QID PRN PO COUGH ; Start 05/24/17 at 14:00 Hydralazine HCl (Apresoline) 50 mg Q8 PO ; Start 05/24/17 at 14:00 Lactulose (Enulose) 20 gm QID PRN PO CONSTIPATION; Start 05/24/17 at 14:00 Multivit/Ca Carb/ B Cmplx/FA/Prenat (Nohemi-Brendan) 1 tab DAILY PO ; Start 05/25/17 at 09:00 Olanzapine (Zyprexa) 2.5 mg DAILY PO ; Start 05/25/17 at 09:00 Senna/Docusate Sodium (Senokot-S) 2 tab QHS PRN PO CONSTIPATION; Start at 14:00 Simethicone (Mylicon) 80 mg Q6H PRN PO DISTENSION/GAS/BLOATING; Start 05/24/17 at 14:00 Eye Lubricant 1 drop 1 drop QID BOTH EYES Last administered on 05/26/17 13:00 ; Admin Dose 1 DROP; Start 05/24/17 at 17:00 Piperacillin Sod/ Tazobactam Sod 50 ml @ 100 mls/hr Q8 IVPB Last administered on 05/26/17 05:23; Admin Dose 100 MLS/HR; Start 05/24/17 at 16:00 Vancomycin HCl (Vancocin) 250 ml @ 125 mls/hr ONCE IVPB Last administered on 14:57; Admin Dose 125 MLS/HR; Start 05/26/17 at 13:00; Stop 05/26/17 at 18:00 RAYNE CARNEY May 26, 2017 16:32
[2017-05-26] MEDS: SOD CHLORIDE 0.45% 1,000 ML IV SCH (18:13)
[2017-05-27] MEDS: PIPER-TAZO 2.25 GM (PMX) 50 ML IVPB SCH ×3 (05:52→21:09)
[2017-05-27 07:29] LABS: ADD SCAN DIFF NO
[2017-05-27] MEDS: PANTOPRAZOLE (EC) 40 MG TAB PO SCH (07:30)
[2017-05-27 07:39] LABS: BASOPHILS % 0.2 % (0.0-2.0); EOSINOPHILS # 0.1 10^3/ul (0.0-0.5); EOSINOPHILS % 0.4 % (0.0-7.0); HEMATOCRIT 35.3 % (42.0-52.0); HEMOGLOBIN 11.4 g/dl (14.0-18.0); LYMPHOCYTES # 1.8 10^3/ul (0.8-2.9); LYMPHOCYTES % 10.7 % (15.0-51.0); MEAN CORPUSCULAR HEMOGLOBIN 32.1 pg (29.0-33.0); MEAN CORPUSCULAR HGB CONC 32.3 g/dl (32.0-37.0); MEAN CORPUSCULAR VOLUME 99.4 fl (82.0-101.0); MEAN PLATELET VOLUME 11.2 fl (7.4-10.4); MONOCYTE # 1.2 10^3/ul (0.3-0.9); NEUTROPHIL # 13.7 10^3/ul (1.6-7.5); NEUTROPHILS % 80.2 % (39.0-77.0); RED BLOOD COUNT 3.55 10^6/ul (4.70-6.10); RED CELL DISTRIBUTION WIDTH 13.7 % (11.5-14.5); WHITE BLOOD COUNT 17.1 10^3/ul (4.8-10.8)
[2017-05-27 07:46] LABS: PLATELET COUNT 199 10^3/UL (140-415)
[2017-05-27 08:12] LABS: CALCIUM 8.6 mg/dl (8.4-10.2); CREATININE 4.73 mg/dl (0.61-1.24); POTASSIUM 4.1 mmol/L (3.5-5.1)
[2017-05-27 08:15] VITALS: BP 123/76; RESP 18
[2017-05-27] MEDS: DOCUSATE SODIUM 100 MG CAP PO SCH ×2 (08:15→21:00)
[2017-05-27] MEDS: SOD CHLORIDE 0.45% 1,000 ML IV SCH ×3 (08:32→21:03)
[2017-05-27] MEDS: AMLODIPINE 10 MG TAB PO SCH (08:47)
[2017-05-27] MEDS: ARTIFICIAL TEARS 15 ML OPH BOTH EYES SCH ×4 (08:47→21:09)
[2017-05-27] MEDS: MULTIVIT/CA CARB/B CMPLX/FA TAB PO SCH (08:47)
[2017-05-27] MEDS: HEPARIN 5,000 UNIT/0.5 ML VIAL SC SCH ×2 (08:48→21:11)
--- NOTE | 2017-05-27 14:31 | CONS ---
Date/Time of Note Date/Time of Note DATE: 05/27/17 TIME: 14:26 Consult Date/Type/Reason Admit Date/Time May 24, 2017 at 12:52 Initial Consult Date 05/26/17 Type of Consultation: nephrology Reason for Consultation esrd Subjective demented, arousable Objective Vital Signs Date Time Temp Pulse Resp B/P Pulse Ox O2 Delivery O2 Flow Rate FiO2 05/27/17 13:13 3.0 05/27/17 09:00 Nasal Cannula 05/27/17 08:15 98.5 76 18 123/76 96 Intake and Output 05/26/17 05/26/17 05/27/17 15:00 23:00 07:00 Intake Total 350 ml 800 ml Output Total 3300 ml 0 ml Balance -2950 ml 800 ml Exam jvp normal chest clear cvs regular s1 s2 abdomen somewhat distended, bs positive lower extremities, no edema Results/Medications Result Diagram: 05/27/17 0649 05/27/17 0649 Results 24 hrs Laboratory Tests Test 05/27/17 06:49 White Blood Count 17.1 H Red Blood Count 3.55 L Hemoglobin 11.4 L Hematocrit 35.3 L Mean Corpuscular Volume 99.4 Mean Corpuscular Hemoglobin 32.1 Mean Corpuscular Hemoglobin Concent 32.3 Red Cell Distribution Width 13.7 Platelet Count 199 # Mean Platelet Volume 11.2 H Neutrophils % 80.2 H Lymphocytes % 10.7 L Monocytes % 7.0 Eosinophils % 0.4 Basophils % 0.2 Nucleated Red Blood Cells % 0.0 Neutrophils # 13.7 H Lymphocytes # 1.8 Monocytes # 1.2 H Eosinophils # 0.1 Basophils # 0.0 Nucleated Red Blood Cells # 0.0 Sodium Level 140 Potassium Level 4.1 Chloride Level 99 Carbon Dioxide Level 20 L Anion Gap 25 H Blood Urea Nitrogen 48 #H Creatinine 4.73 #H Glucose Level 90 Calcium Level 8.6 Medications Current Medications Ondansetron HCl (Zofran Inj) 4 mg Q6H PRN IV NAUSEA AND/OR VOMITING; Start at 14:00 Acetaminophen (Tylenol Tab) 650 mg Q6H PRN PO PAIN LEVEL 1-3 OR FEVER; Start at 14:00 Acetaminophen/ Hydrocodone Bitart ([place] (5/325)) 1 tab Q6H PRN PO MODERATE PAIN LEVEL 4-6; Start 05/24/17 at 14:00 Morphine Sulfate (morphine) 2 mg Q4H PRN IV SEVERE PAIN LEVEL 7-10; Start 05/24 at 14:00 Docusate Sodium (Colace) 100 mg Q12H PRN PO CONSTIPATION; Start 05/24/17 at 14: 00 Magnesium Hydroxide (Milk Of Mag) 30 ml DAILY PRN PO CONSTIPATION; Start at 14:00 Sodium Biphosphate/ Sodium Phosphate (Fleet Enema) 133 ml DAILY PRN [place] CONSTIPATION; Start 05/24/17 at 14:00 Heparin Sodium (Porcine) 5000 unit 5,000 unit Q12 SC Last administered on 08:48; Admin Dose 5,000 UNIT; Start 05/24/17 at 21:00 Sodium Chloride (1/2 NS) 1,000 ml @ 75 mls/hr [id number] IV Last administered on 05/27/17 11:40; Admin Dose 75 MLS/HR; Start 05/24/17 at 13:52 Vancomycin HCl (Vanco Iv Per Pharmacy) VANCOMYCIN PER PHARMACY NOTE XX ; Start 05/24/17 at 14:00 Hydralazine HCl (Apresoline) 10 mg Q6H PRN IV ELEVATED BLOOD PRESSURE; Start at 14:00 Nitroglycerin (Nitroglycerin (Sl Tab) 0.4 Mg) 1 tab Q5M PRN SL ANGINA; Start at 14:00 Amlodipine Besylate (Norvasc) 10 mg DAILY PO ; Start 05/25/17 at 09:00 Carvedilol (Coreg) 12.5 mg BID PO ; Start 05/24/17 at 21:00 Docusate Sodium (Colace) 100 mg BID PO ; Start 05/24/17 at 21:00 Guaifenesin/ Dextromethorphan (Robitussin Dm Liquid Cup) 10 ml QID PRN PO COUGH ; Start 05/24/17 at 14:00 Hydralazine HCl (Apresoline) 50 mg Q8 PO ; Start 05/24/17 at 14:00 Lactulose (Enulose) 20 gm QID PRN PO CONSTIPATION; Start 05/24/17 at 14:00 Multivit/Ca Carb/ B Cmplx/FA/Prenat (Nohemi-Brendan) 1 tab DAILY PO ; Start 05/25/17 at 09:00 Senna/Docusate Sodium (Senokot-S) 2 tab QHS PRN PO CONSTIPATION; Start at 14:00 Simethicone (Mylicon) 80 mg Q6H PRN PO DISTENSION/GAS/BLOATING; Start 05/24/17 at 14:00 Eye Lubricant 1 drop 1 drop QID BOTH EYES Last administered on 05/27/17 13:22 ; Admin Dose 1 DROP; Start 05/24/17 at 17:00 Piperacillin Sod/ Tazobactam Sod (Zosyn 2.25gm/ 50ml (Pmx)) 50 ml @ 100 mls/hr Q8 IVPB Last administered on 05/27/17 13:21; Admin Dose 100 MLS/HR; Start at 16:00 Assessment/Plan Chief Complaint/Hosp Course esrd, hd tts hypertension controlled anemia, epogen as needed mrsa septicemia, make sure pt on vancomycin Problems: JEFFRY RAMIREZ MD May 27, 2017 14:31
--- NOTE | 2017-05-27 17:34 | PN ---
Date/Time of Note Date/Time of Note DATE: 05/27/17 TIME: 17:31 Assessment/Plan VTE Prophylaxis VTE Prophylaxis Intervention: SCD's Lines/Catheters IV Catheter Type (from Nrs): Peripheral IV Urinary Cath still in place: No Assessment/Plan Assessment/Plan 1. Sepsis secondary to #7 and #2 2. Bilateral perihilar and basilar pneumonia 3. Fluid overload with interstitial pulmonary edema and bilateral pleural effusions with preserved EF on echo 4. End-stage renal disease on hemodialysis 5. Rule out an acute coronary syndrome 6. Chronic normocytic anemia 7. Staph aureus bacteremia r/o line sepsis 8. DO NOT RESUSCITATE 9. Dyslipidemia with low HDL 10. Chronic dementia with intermittent agitation PLAN: HD as per nephrology IV abx for PNA and sepsis pt has been lethargic, bedridden, Bp stable, S/p palliative care consultatin yesteday, will need family meeting to discuss goals of care i had a talk with daughter today- who is interseted in havmt that meeting tomorrow SW to see pt SCD for DVT Prophylaxis Subjective 24 Hr Interval Summary Free Text/Dictation pt has been bedridden, lethargic, BP stable, afebrile Exam/Review of Systems Vital Signs Vitals Vital Signs Date Time Temp Pulse Resp B/P Pulse Ox O2 Delivery O2 Flow Rate FiO2 05/27/17 13:13 3.0 05/27/17 09:00 Nasal Cannula 05/27/17 08:15 98.5 76 18 123/76 96 Intake and Output 05/26/17 05/26/17 05/27/17 15:00 23:00 07:00 Intake Total 350 ml 800 ml Output Total 3300 ml 0 ml Balance -2950 ml 800 ml Exam GENERAL: The patient lying in bed, no acute distress. looks comfortable, but unresponsive HEENT: Pupils equal, round, react to light. Extraocular muscles intact. NECK: Supple, no thyromegaly. LUNGS: Slightly decreased breath sounds bilaterally. CARDIOVASCULAR: S1, S2 heard. No rubs or gallops. ABDOMEN: Soft, nontender, nondistended. Normal bowel sounds. No rebound or guarding. MUSCULOSKELETAL: No lower extremity edema bilaterally. NEUROLOGIC: Unable to fully assess as the patient is altered. Results Result Diagram: 05/27/17 0649 05/27/17 0649 Results 24 hrs Laboratory Tests Test 05/27/17 06:49 White Blood Count 17.1 H Red Blood Count 3.55 L Hemoglobin 11.4 L Hematocrit 35.3 L Mean Corpuscular Volume 99.4 Mean Corpuscular Hemoglobin 32.1 Mean Corpuscular Hemoglobin Concent 32.3 Red Cell Distribution Width 13.7 Platelet Count 199 # Mean Platelet Volume 11.2 H Neutrophils % 80.2 H Lymphocytes % 10.7 L Monocytes % 7.0 Eosinophils % 0.4 Basophils % 0.2 Nucleated Red Blood Cells % 0.0 Neutrophils # 13.7 H Lymphocytes # 1.8 Monocytes # 1.2 H Eosinophils # 0.1 Basophils # 0.0 Nucleated Red Blood Cells # 0.0 Sodium Level 140 Potassium Level 4.1 Chloride Level 99 Carbon Dioxide Level 20 L Anion Gap 25 H Blood Urea Nitrogen 48 #H Creatinine 4.73 #H Glucose Level 90 Calcium Level 8.6 Medications Medications Current Medications Ondansetron HCl (Zofran Inj) 4 mg Q6H PRN IV NAUSEA AND/OR VOMITING; Start at 14:00 Acetaminophen (Tylenol Tab) 650 mg Q6H PRN PO PAIN LEVEL 1-3 OR FEVER; Start at 14:00 Acetaminophen/ Hydrocodone Bitart ([place] (5/325)) 1 tab Q6H PRN PO MODERATE PAIN LEVEL 4-6; Start 05/24/17 at 14:00 Morphine Sulfate (morphine) 2 mg Q4H PRN IV SEVERE PAIN LEVEL 7-10; Start 05/24 at 14:00 Docusate Sodium (Colace) 100 mg Q12H PRN PO CONSTIPATION; Start 05/24/17 at 14: 00 Magnesium Hydroxide (Milk Of Mag) 30 ml DAILY PRN PO CONSTIPATION; Start at 14:00 Sodium Biphosphate/ Sodium Phosphate (Fleet Enema) 133 ml DAILY PRN [place] CONSTIPATION; Start 05/24/17 at 14:00 Heparin Sodium (Porcine) 5000 unit 5,000 unit Q12 SC Last administered on 08:48; Admin Dose 5,000 UNIT; Start 05/24/17 at 21:00 Sodium Chloride (1/2 NS) 1,000 ml @ 75 mls/hr [id number] IV Last administered on 05/27/17 11:40; Admin Dose 75 MLS/HR; Start 05/24/17 at 13:52 Vancomycin HCl (Vanco Iv Per Pharmacy) VANCOMYCIN PER PHARMACY NOTE XX ; Start 05/24/17 at 14:00 Hydralazine HCl (Apresoline) 10 mg Q6H PRN IV ELEVATED BLOOD PRESSURE; Start at 14:00 Nitroglycerin (Nitroglycerin (Sl Tab) 0.4 Mg) 1 tab Q5M PRN SL ANGINA; Start at 14:00 Amlodipine Besylate (Norvasc) 10 mg DAILY PO ; Start 05/25/17 at 09:00 Carvedilol (Coreg) 12.5 mg BID PO ; Start 05/24/17 at 21:00 Docusate Sodium (Colace) 100 mg BID PO ; Start 05/24/17 at 21:00 Guaifenesin/ Dextromethorphan (Robitussin Dm Liquid Cup) 10 ml QID PRN PO COUGH ; Start 05/24/17 at 14:00 Hydralazine HCl (Apresoline) 50 mg Q8 PO ; Start 05/24/17 at 14:00 Lactulose (Enulose) 20 gm QID PRN PO CONSTIPATION; Start 05/24/17 at 14:00 Multivit/Ca Carb/ B Cmplx/FA/Prenat (Nohemi-Brendan) 1 tab DAILY PO ; Start 05/25/17 at 09:00 Senna/Docusate Sodium (Senokot-S) 2 tab QHS PRN PO CONSTIPATION; Start at 14:00 Simethicone (Mylicon) 80 mg Q6H PRN PO DISTENSION/GAS/BLOATING; Start 05/24/17 at 14:00 Eye Lubricant 1 drop 1 drop QID BOTH EYES Last administered on 05/27/17 17:05 ; Admin Dose 1 DROP; Start 05/24/17 at 17:00 Piperacillin Sod/ Tazobactam Sod (Zosyn 2.25gm/ 50ml (Pmx)) 50 ml @ 100 mls/hr Q8 IVPB Last administered on 05/27/17 13:21; Admin Dose 100 MLS/HR; Start at 16:00 BIJAL NETTLES MD May 27, 2017 17:34
[2017-05-27 21:06] VITALS: BP 123/59; RESP 19
[2017-05-28] VITALS (11 sets, daily range): BP systolic 81–185; BP diastolic 52–110; PULSE 63–96; RESP 19–44
[2017-05-28] MEDS: SOD CHLORIDE 0.45% 1,000 ML IV SCH ×2 (03:33→23:19)
[2017-05-28] MEDS: PIPER-TAZO 2.25 GM (PMX) 50 ML IVPB SCH ×3 (05:09→21:03)
[2017-05-28 06:01] LABS: ADD SCAN DIFF NO
[2017-05-28 06:26] LABS: BASOPHIL # 0.1 10^3/ul (0.0-0.1); BASOPHILS % 0.3 % (0.0-2.0); EOSINOPHILS # 0.1 10^3/ul (0.0-0.5); EOSINOPHILS % 0.8 % (0.0-7.0); HEMATOCRIT 33.3 % (42.0-52.0); HEMOGLOBIN 10.9 g/dl (14.0-18.0); LYMPHOCYTES # 1.7 10^3/ul (0.8-2.9); LYMPHOCYTES % 10.3 % (15.0-51.0); MEAN CORPUSCULAR HGB CONC 32.7 g/dl (32.0-37.0); MEAN CORPUSCULAR VOLUME 97.7 fl (82.0-101.0); MEAN PLATELET VOLUME 10.8 fl (7.4-10.4); MONOCYTE # 1.2 10^3/ul (0.3-0.9); MONOCYTES % 7.4 % (0.0-11.0); NEUTROPHIL # 12.9 10^3/ul (1.6-7.5); NEUTROPHILS % 79.7 % (39.0-77.0); PLATELET COUNT 170 10^3/UL (140-415); RED BLOOD COUNT 3.41 10^6/ul (4.70-6.10); RED CELL DISTRIBUTION WIDTH 13.5 % (11.5-14.5); WHITE BLOOD COUNT 16.2 10^3/ul (4.8-10.8)
[2017-05-28] MEDS: PANTOPRAZOLE (EC) 40 MG TAB PO SCH (06:35)
[2017-05-28 06:55] LABS: CALCIUM 8.5 mg/dl (8.4-10.2); CREATININE 6.1 mg/dl (0.61-1.24)
[2017-05-28] MEDS: HEPARIN 5,000 UNIT/0.5 ML VIAL SC SCH ×2 (08:17→20:41)
[2017-05-28] MEDS: ARTIFICIAL TEARS 15 ML OPH BOTH EYES SCH ×4 (08:17→20:39)
[2017-05-28] MEDS: DOCUSATE SODIUM 100 MG CAP PO SCH ×2 (08:17→20:38)
[2017-05-28] MEDS: AMLODIPINE 10 MG TAB PO SCH (08:17)
[2017-05-28] MEDS: MULTIVIT/CA CARB/B CMPLX/FA TAB PO SCH (08:18)
--- NOTE | 2017-05-28 09:30 | CONS ---
Date/Time of Note Date/Time of Note DATE: 05/28/17 TIME: 09:28 Assessment/Plan Assessment/Plan Chief Complaint/Hosp Course 82 yo male resident of [facility] sent for sepsisi syndrome. Underlying dementia to be explored further with family members. ESRD on Hemodialysis Bilateral PNA F/E disorders Incomplete data base Problems: Additional Assessment/Plan Family conference today at 1300 Consultation Date/Type/Reason Admit Date/Time May 24, 2017 at 12:52 Initial Consult Date 05/26/17 Type of Consultation: Palliative cARE Exam/Review of Systems Vital Signs Vitals Vital Signs Date Time Temp Pulse Resp B/P Pulse Ox O2 Delivery O2 Flow Rate FiO2 05/28/17 08:25 95 24 153/72 05/28/17 08:14 98.1 94 05/27/17 23:50 3.0 05/27/17 20:00 Nasal Cannula Intake and Output 05/27/17 05/27/17 05/28/17 15:00 23:00 07:00 Intake Total 300 ml 350 ml 937.5 ml Output Total 0 ml 0 ml Balance 300 ml 350 ml 937.5 ml Results Result Diagram: 05/28/17 0505 05/28/17 0505 Results 24 hrs Laboratory Tests Test 05/28/17 05:05 White Blood Count 16.2 H Red Blood Count 3.41 L Hemoglobin 10.9 L Hematocrit 33.3 L Mean Corpuscular Volume 97.7 Mean Corpuscular Hemoglobin 32.0 Mean Corpuscular Hemoglobin Concent 32.7 Red Cell Distribution Width 13.5 Platelet Count 170 Mean Platelet Volume 10.8 H Neutrophils % 79.7 H Lymphocytes % 10.3 L Monocytes % 7.4 Eosinophils % 0.8 Basophils % 0.3 Nucleated Red Blood Cells % 0.0 Neutrophils # 12.9 H Lymphocytes # 1.7 Monocytes # 1.2 H Eosinophils # 0.1 Basophils # 0.1 Nucleated Red Blood Cells # 0.0 Sodium Level 140 Potassium Level 4.0 Chloride Level 100 Carbon Dioxide Level 18 L Anion Gap 26 H Blood Urea Nitrogen 65 H Creatinine 6.10 H Glucose Level 80 Calcium Level 8.5 Medications Medications Current Medications Ondansetron HCl (Zofran Inj) 4 mg Q6H PRN IV NAUSEA AND/OR VOMITING; Start at 14:00 Acetaminophen (Tylenol Tab) 650 mg Q6H PRN PO PAIN LEVEL 1-3 OR FEVER; Start at 14:00 Acetaminophen/ Hydrocodone Bitart ([place] (5/325)) 1 tab Q6H PRN PO MODERATE PAIN LEVEL 4-6; Start 05/24/17 at 14:00 Morphine Sulfate (morphine) 2 mg Q4H PRN IV SEVERE PAIN LEVEL 7-10; Start 05/24 at 14:00 Docusate Sodium (Colace) 100 mg Q12H PRN PO CONSTIPATION; Start 05/24/17 at 14: 00 Magnesium Hydroxide (Milk Of Mag) 30 ml DAILY PRN PO CONSTIPATION; Start at 14:00 Sodium Biphosphate/ Sodium Phosphate (Fleet Enema) 133 ml DAILY PRN [place] CONSTIPATION; Start 05/24/17 at 14:00 Heparin Sodium (Porcine) 5000 unit 5,000 unit Q12 SC Last administered on 08:17; Admin Dose 5,000 UNIT; Start 05/24/17 at 21:00 Sodium Chloride (1/2 NS) 1,000 ml @ 75 mls/hr [id number] IV Last administered on 05/28/17 03:33; Admin Dose 75 MLS/HR; Start 05/24/17 at 13:52 Vancomycin HCl (Vanco Iv Per Pharmacy) VANCOMYCIN PER PHARMACY NOTE XX ; Start 05/24/17 at 14:00 Hydralazine HCl (Apresoline) 10 mg Q6H PRN IV ELEVATED BLOOD PRESSURE; Start at 14:00 Nitroglycerin (Nitroglycerin (Sl Tab) 0.4 Mg) 1 tab Q5M PRN SL ANGINA; Start at 14:00 Amlodipine Besylate (Norvasc) 10 mg DAILY PO ; Start 05/25/17 at 09:00 Carvedilol (Coreg) 12.5 mg BID PO ; Start 05/24/17 at 21:00 Docusate Sodium (Colace) 100 mg BID PO ; Start 05/24/17 at 21:00 Guaifenesin/ Dextromethorphan (Robitussin Dm Liquid Cup) 10 ml QID PRN PO COUGH ; Start 05/24/17 at 14:00 Hydralazine HCl (Apresoline) 50 mg Q8 PO ; Start 05/24/17 at 14:00 Lactulose (Enulose) 20 gm QID PRN PO CONSTIPATION; Start 05/24/17 at 14:00 Multivit/Ca Carb/ B Cmplx/FA/Prenat (Nohemi-Brendan) 1 tab DAILY PO ; Start 05/25/17 at 09:00 Senna/Docusate Sodium (Senokot-S) 2 tab QHS PRN PO CONSTIPATION; Start at 14:00 Simethicone (Mylicon) 80 mg Q6H PRN PO DISTENSION/GAS/BLOATING; Start 05/24/17 at 14:00 Eye Lubricant 1 drop 1 drop QID BOTH EYES Last administered on 05/28/17 08:17 ; Admin Dose 1 DROP; Start 05/24/17 at 17:00 Piperacillin Sod/ Tazobactam Sod (Zosyn 2.25gm/ 50ml (Pmx)) 50 ml @ 100 mls/hr Q8 IVPB Last administered on 05/28/17 05:09; Admin Dose 100 MLS/HR; Start at 16:00 RAYNE CARNEY May 28, 2017 09:29
--- NOTE | 2017-05-28 12:13 | CONS ---
Date/Time of Note Date/Time of Note DATE: 05/28/17 TIME: 12:12 Consultation Date/Type/Reason Admit Date/Time May 24, 2017 at 12:52 Reason for Consultation This is Hugo Allen, dictating infectious disease consult on Amarjit Delong, date of admission 05/24/2017 date of consultation 627 date of dictation 05/28/2017 this is infectious disease consult the reason for consultation is antibiotic management. Patient is an 82-year-old male who was sent from long term because of fever and elevated white count. His problems include senile dementia, essential hypertension, prior healthcare associated pneumonia, and end-stage renal disease on hemodialysis. The patient was admitted with a white count of 19,000, his chest x-ray showed signs of possible CHF versus pneumonia.. His workup showed that he had positive blood cultures for methicillin-resistant staph on 624, 2 sets, and positive blood cultures on 626 also for staph aureus. Patient is currently on vancomycin and Zosyn. Past medical history operations as outlined family history is noncontributory social history he does not smoke drink or abuse drugs. Allergies none to penicillin and sulfa foods Family history is noncontributory Review of systems as per HPI Past surgical history history: Left chest permacath in the past Physical examination: Vital signs are stable and he is afebrile SHEENT within normal limits Neck supple Chest decreased breath sounds at the bases Heart without murmur gallop Abdomen soft nontender without organosplenomegaly or masses Extremities without cyanosis clubbing or edema Rectal genital exams deferred Neurological evaluation patient is altered Impression plan: Patient presented with leukocytosis of 19,000, and abnormal chest x-ray and now has 4 positive blood cultures for staph aureus. We are most likely dealing with line sepsis secondary to hemodialysis and his line will need to be changed. Continue on vancomycin, we will probably stop Zosyn. I will dictate my findings to the hospitalists to Lilian Grossman and Dr. Curiel. Thank you for this infrastructure administrator. Past Surgical History Past Surgical Hx: other Social History Smoking Status: Never smoker Exam/Review of Systems Vital Signs Vitals Vital Signs Date Time Temp Pulse Resp B/P Pulse Ox O2 Delivery O2 Flow Rate FiO2 05/28/17 08:25 95 24 153/72 05/28/17 08:14 98.1 94 05/27/17 23:50 3.0 05/27/17 20:00 Nasal Cannula Intake and Output 05/27/17 05/27/17 05/28/17 15:00 23:00 07:00 Intake Total 300 ml 350 ml 937.5 ml Output Total 0 ml 0 ml Balance 300 ml 350 ml 937.5 ml Results Result Diagram: 05/28/17 0505 05/28/17 0505 Results 24 hrs Laboratory Tests Test 05/28/17 05:05 White Blood Count 16.2 H Red Blood Count 3.41 L Hemoglobin 10.9 L Hematocrit 33.3 L Mean Corpuscular Volume 97.7 Mean Corpuscular Hemoglobin 32.0 Mean Corpuscular Hemoglobin Concent 32.7 Red Cell Distribution Width 13.5 Platelet Count 170 Mean Platelet Volume 10.8 H Neutrophils % 79.7 H Lymphocytes % 10.3 L Monocytes % 7.4 Eosinophils % 0.8 Basophils % 0.3 Nucleated Red Blood Cells % 0.0 Neutrophils # 12.9 H Lymphocytes # 1.7 Monocytes # 1.2 H Eosinophils # 0.1 Basophils # 0.1 Nucleated Red Blood Cells # 0.0 Sodium Level 140 Potassium Level 4.0 Chloride Level 100 Carbon Dioxide Level 18 L Anion Gap 26 H Blood Urea Nitrogen 65 H Creatinine 6.10 H Glucose Level 80 Calcium Level 8.5 Medications Medications Current Medications Ondansetron HCl (Zofran Inj) 4 mg Q6H PRN IV NAUSEA AND/OR VOMITING; Start at 14:00 Acetaminophen (Tylenol Tab) 650 mg Q6H PRN PO PAIN LEVEL 1-3 OR FEVER; Start at 14:00 Acetaminophen/ Hydrocodone Bitart ([place] (5/325)) 1 tab Q6H PRN PO MODERATE PAIN LEVEL 4-6; Start 05/24/17 at 14:00 Morphine Sulfate (morphine) 2 mg Q4H PRN IV SEVERE PAIN LEVEL 7-10; Start 05/24 at 14:00 Docusate Sodium (Colace) 100 mg Q12H PRN PO CONSTIPATION; Start 05/24/17 at 14: 00 Magnesium Hydroxide (Milk Of Mag) 30 ml DAILY PRN PO CONSTIPATION; Start at 14:00 Sodium Biphosphate/ Sodium Phosphate (Fleet Enema) 133 ml DAILY PRN [place] CONSTIPATION; Start 05/24/17 at 14:00 Heparin Sodium (Porcine) 5000 unit 5,000 unit Q12 SC Last administered on 08:17; Admin Dose 5,000 UNIT; Start 05/24/17 at 21:00 Sodium Chloride (1/2 NS) 1,000 ml @ 75 mls/hr [id number] IV Last administered on 05/28/17 03:33; Admin Dose 75 MLS/HR; Start 05/24/17 at 13:52 Vancomycin HCl (Vanco Iv Per Pharmacy) VANCOMYCIN PER PHARMACY NOTE XX ; Start 05/24/17 at 14:00 Hydralazine HCl (Apresoline) 10 mg Q6H PRN IV ELEVATED BLOOD PRESSURE; Start at 14:00 Nitroglycerin (Nitroglycerin (Sl Tab) 0.4 Mg) 1 tab Q5M PRN SL ANGINA; Start at 14:00 Amlodipine Besylate (Norvasc) 10 mg DAILY PO ; Start 05/25/17 at 09:00 Carvedilol (Coreg) 12.5 mg BID PO ; Start 05/24/17 at 21:00 Docusate Sodium (Colace) 100 mg BID PO ; Start 05/24/17 at 21:00 Guaifenesin/ Dextromethorphan (Robitussin Dm Liquid Cup) 10 ml QID PRN PO COUGH ; Start 05/24/17 at 14:00 Hydralazine HCl (Apresoline) 50 mg Q8 PO ; Start 05/24/17 at 14:00 Lactulose (Enulose) 20 gm QID PRN PO CONSTIPATION; Start 05/24/17 at 14:00 Multivit/Ca Carb/ B Cmplx/FA/Prenat (Nohemi-Brendan) 1 tab DAILY PO ; Start 05/25/17 at 09:00 Senna/Docusate Sodium (Senokot-S) 2 tab QHS PRN PO CONSTIPATION; Start at 14:00 Simethicone (Mylicon) 80 mg Q6H PRN PO DISTENSION/GAS/BLOATING; Start 05/24/17 at 14:00 Eye Lubricant 1 drop 1 drop QID BOTH EYES Last administered on 05/28/17 08:17 ; Admin Dose 1 DROP; Start 05/24/17 at 17:00 Piperacillin Sod/ Tazobactam Sod (Zosyn 2.25gm/ 50ml (Pmx)) 50 ml @ 100 mls/hr Q8 IVPB Last administered on 05/28/17t 05:09; Admin Dose 100 MLS/HR; Start at 16:00 NOE PRICE MD May 28, 2017 12:13
--- NOTE | 2017-05-28 12:24 | CONS ---
Date/Time of Note Date/Time of Note DATE: 05/28/17 TIME: 12:18 Consult Date/Type/Reason Admit Date/Time May 24, 2017 at 12:52 Initial Consult Date 05/26/17 Type of Consultation: nephrology Subjective altered, voices no complaints. Objective Vital Signs Date Time Temp Pulse Resp B/P Pulse Ox O2 Delivery O2 Flow Rate FiO2 05/28/17 08:25 95 24 153/72 05/28/17 08:14 98.1 94 05/27/17 23:50 3.0 05/27/17 20:00 Nasal Cannula Intake and Output 05/27/17 05/27/17 05/28/17 15:00 23:00 07:00 Intake Total 300 ml 350 ml 937.5 ml Output Total 0 ml 0 ml Balance 300 ml 350 ml 937.5 ml Exam chest clear [facility] regular abdomen mildly distended, bs plus trace edema both lower extremities Results/Medications Result Diagram: 05/28/17 0505 05/28/17 0505 Results 24 hrs Laboratory Tests Test 05/28/17 05:05 White Blood Count 16.2 H Red Blood Count 3.41 L Hemoglobin 10.9 L Hematocrit 33.3 L Mean Corpuscular Volume 97.7 Mean Corpuscular Hemoglobin 32.0 Mean Corpuscular Hemoglobin Concent 32.7 Red Cell Distribution Width 13.5 Platelet Count 170 Mean Platelet Volume 10.8 H Neutrophils % 79.7 H Lymphocytes % 10.3 L Monocytes % 7.4 Eosinophils % 0.8 Basophils % 0.3 Nucleated Red Blood Cells % 0.0 Neutrophils # 12.9 H Lymphocytes # 1.7 Monocytes # 1.2 H Eosinophils # 0.1 Basophils # 0.1 Nucleated Red Blood Cells # 0.0 Sodium Level 140 Potassium Level 4.0 Chloride Level 100 Carbon Dioxide Level 18 L Anion Gap 26 H Blood Urea Nitrogen 65 H Creatinine 6.10 H Glucose Level 80 Calcium Level 8.5 Medications Current Medications Ondansetron HCl (Zofran Inj) 4 mg Q6H PRN IV NAUSEA AND/OR VOMITING; Start at 14:00 Acetaminophen (Tylenol Tab) 650 mg Q6H PRN PO PAIN LEVEL 1-3 OR FEVER; Start at 14:00 Acetaminophen/ Hydrocodone Bitart ([place] (5/325)) 1 tab Q6H PRN PO MODERATE PAIN LEVEL 4-6; Start 05/24/17 at 14:00 Morphine Sulfate (morphine) 2 mg Q4H PRN IV SEVERE PAIN LEVEL 7-10; Start 05/24 at 14:00 Docusate Sodium (Colace) 100 mg Q12H PRN PO CONSTIPATION; Start 05/24/17 at 14: 00 Magnesium Hydroxide (Milk Of Mag) 30 ml DAILY PRN PO CONSTIPATION; Start at 14:00 Sodium Biphosphate/ Sodium Phosphate (Fleet Enema) 133 ml DAILY PRN [place] CONSTIPATION; Start 05/24/17 at 14:00 Heparin Sodium (Porcine) 5000 unit 5,000 unit Q12 SC Last administered on 08:17; Admin Dose 5,000 UNIT; Start 05/24/17 at 21:00 Sodium Chloride (1/2 NS) 1,000 ml @ 75 mls/hr [id number] IV Last administered on 05/28/17 03:33; Admin Dose 75 MLS/HR; Start 05/24/17 at 13:52 Vancomycin HCl (Vanco Iv Per Pharmacy) VANCOMYCIN PER PHARMACY NOTE XX ; Start 05/24/17 at 14:00 Hydralazine HCl (Apresoline) 10 mg Q6H PRN IV ELEVATED BLOOD PRESSURE; Start at 14:00 Nitroglycerin (Nitroglycerin (Sl Tab) 0.4 Mg) 1 tab Q5M PRN SL ANGINA; Start at 14:00 Amlodipine Besylate (Norvasc) 10 mg DAILY PO ; Start 05/25/17 at 09:00 Carvedilol (Coreg) 12.5 mg BID PO ; Start 05/24/17 at 21:00 Docusate Sodium (Colace) 100 mg BID PO ; Start 05/24/17 at 21:00 Guaifenesin/ Dextromethorphan (Robitussin Dm Liquid Cup) 10 ml QID PRN PO COUGH ; Start 05/24/17 at 14:00 Hydralazine HCl (Apresoline) 50 mg Q8 PO ; Start 05/24/17 at 14:00 Lactulose (Enulose) 20 gm QID PRN PO CONSTIPATION; Start 05/24/17 at 14:00 Multivit/Ca Carb/ B Cmplx/FA/Prenat (Nohemi-Brendan) 1 tab DAILY PO ; Start 05/25/17 at 09:00 Senna/Docusate Sodium (Senokot-S) 2 tab QHS PRN PO CONSTIPATION; Start at 14:00 Simethicone (Mylicon) 80 mg Q6H PRN PO DISTENSION/GAS/BLOATING; Start 05/24/17 at 14:00 Eye Lubricant 1 drop 1 drop QID BOTH EYES Last administered on 05/28/17 08:17 ; Admin Dose 1 DROP; Start 05/24/17 at 17:00 Piperacillin Sod/ Tazobactam Sod (Zosyn 2.25gm/ 50ml (Pmx)) 50 ml @ 100 mls/hr Q8 IVPB Last administered on 05/28/17 05:09; Admin Dose 100 MLS/HR; Start at 16:00 Assessment/Plan Chief Complaint/Hosp Course esrd, hd today, tolerating well, next hd friday hypertension high this morning due to meds being held for dialysis. anemia, epogen as needed mrsa septicemia, make sure pt on vancomycin cs blood positive mrsa 05/26, repeat blood cs today, if persistent hd catheter will have to come out Problems: JEFFRY RAMIREZ MD May 28, 2017 12:24
--- NOTE | 2017-05-28 12:53 | CONS ---
Date/Time of Note Date/Time of Note DATE: 05/28/17 TIME: 12:47 Assessment/Plan Assessment/Plan Chief Complaint/Hosp Course Subjective: No acute changes overnight, patient is lying comfortably in bed, afebrile no acute Microbiology: Blood cultures since admission growing MRSA Indwelling: Left chest permacath Antimicrobials: Vancomycin and Zosyn Diagnostics: 1. Cardiomegaly with congestive heart failure interstitial pulmonary edema with bilateral pleural effusions. The pulmonary edema has worsened as compared to . 2. Consolidative infiltrate/atelectasis obscuring the diaphragms. 3. Dialysis catheter near the junction of the right atrium superior vena cava. 4. Spondylosis of the thoracic spine. Or 5 atherosclerosis of the aortic arch. Physical examination: This is a well-developed obese fragile elderly man who is in no distress. Head atraumatic normocephalic, sclera nonicteric. Neck is supple. Chest rise symmetrical, breath sounds diminished to bases. Heart S1- S2. Abdomen is soft bowel tones hypoactive. Extremities with trace edema. Assessment: 1. MRSA bacteremia, likely line sepsis 2. Pneumonia 3. End-stage renal disease 4. Dementia Plan: Clinically stable, 2D echo revealed no vegetations, continue on current antibiotics, consider permacath DC staff Problems: Consultation Date/Type/Reason Admit Date/Time May 24, 2017 at 12:52 Initial Consult Date 05/26/17 Type of Consultation: ID Exam/Review of Systems Vital Signs Vitals Vital Signs Date Time Temp Pulse Resp B/P Pulse Ox O2 Delivery O2 Flow Rate FiO2 05/28/17 08:25 95 24 153/72 05/28/17 08:14 98.1 94 05/27/17 23:50 3.0 05/27/17 20:00 Nasal Cannula Intake and Output 05/27/17 05/27/17 05/28/17 15:00 23:00 07:00 Intake Total 300 ml 350 ml 937.5 ml Output Total 0 ml 0 ml Balance 300 ml 350 ml 937.5 ml Results Result Diagram: 05/28/17 0505 05/28/17 0505 Results 24 hrs Laboratory Tests Test 05/28/17 05:05 White Blood Count 16.2 H Red Blood Count 3.41 L Hemoglobin 10.9 L Hematocrit 33.3 L Mean Corpuscular Volume 97.7 Mean Corpuscular Hemoglobin 32.0 Mean Corpuscular Hemoglobin Concent 32.7 Red Cell Distribution Width 13.5 Platelet Count 170 Mean Platelet Volume 10.8 H Neutrophils % 79.7 H Lymphocytes % 10.3 L Monocytes % 7.4 Eosinophils % 0.8 Basophils % 0.3 Nucleated Red Blood Cells % 0.0 Neutrophils # 12.9 H Lymphocytes # 1.7 Monocytes # 1.2 H Eosinophils # 0.1 Basophils # 0.1 Nucleated Red Blood Cells # 0.0 Sodium Level 140 Potassium Level 4.0 Chloride Level 100 Carbon Dioxide Level 18 L Anion Gap 26 H Blood Urea Nitrogen 65 H Creatinine 6.10 H Glucose Level 80 Calcium Level 8.5 Medications Medications Current Medications Ondansetron HCl (Zofran Inj) 4 mg Q6H PRN IV NAUSEA AND/OR VOMITING; Start at 14:00 Acetaminophen (Tylenol Tab) 650 mg Q6H PRN PO PAIN LEVEL 1-3 OR FEVER; Start at 14:00 Acetaminophen/ Hydrocodone Bitart ([place] (5/325)) 1 tab Q6H PRN PO MODERATE PAIN LEVEL 4-6; Start 05/24/17 at 14:00 Morphine Sulfate (morphine) 2 mg Q4H PRN IV SEVERE PAIN LEVEL 7-10; Start 05/24 at 14:00 Docusate Sodium (Colace) 100 mg Q12H PRN PO CONSTIPATION; Start 05/24/17 at 14: 00 Magnesium Hydroxide (Milk Of Mag) 30 ml DAILY PRN PO CONSTIPATION; Start at 14:00 Sodium Biphosphate/ Sodium Phosphate (Fleet Enema) 133 ml DAILY PRN [place] CONSTIPATION; Start 05/24/17 at 14:00 Heparin Sodium (Porcine) 5000 unit 5,000 unit Q12 SC Last administered on 08:17; Admin Dose 5,000 UNIT; Start 05/24/17 at 21:00 Sodium Chloride (1/2 NS) 1,000 ml @ 75 mls/hr [id number] IV Last administered on 05/28/17 03:33; Admin Dose 75 MLS/HR; Start 05/24/17 at 13:52 Vancomycin HCl (Vanco Iv Per Pharmacy) VANCOMYCIN PER PHARMACY NOTE XX ; Start 05/24/17 at 14:00 Hydralazine HCl (Apresoline) 10 mg Q6H PRN IV ELEVATED BLOOD PRESSURE; Start at 14:00 Nitroglycerin (Nitroglycerin (Sl Tab) 0.4 Mg) 1 tab Q5M PRN SL ANGINA; Start at 14:00 Amlodipine Besylate (Norvasc) 10 mg DAILY PO ; Start 05/25/17 at 09:00 Carvedilol (Coreg) 12.5 mg BID PO ; Start 05/24/17 at 21:00 Docusate Sodium (Colace) 100 mg BID PO ; Start 05/24/17 at 21:00 Guaifenesin/ Dextromethorphan (Robitussin Dm Liquid Cup) 10 ml QID PRN PO COUGH ; Start 05/24/17 at 14:00 Hydralazine HCl (Apresoline) 50 mg Q8 PO ; Start 05/24/17 at 14:00 Lactulose (Enulose) 20 gm QID PRN PO CONSTIPATION; Start 05/24/17 at 14:00 Multivit/Ca Carb/ B Cmplx/FA/Prenat (Nohemi-Brendan) 1 tab DAILY PO ; Start 05/25/17 at 09:00 Senna/Docusate Sodium (Senokot-S) 2 tab QHS PRN PO CONSTIPATION; Start at 14:00 Simethicone (Mylicon) 80 mg Q6H PRN PO DISTENSION/GAS/BLOATING; Start 05/24/17 at 14:00 Eye Lubricant 1 drop 1 drop QID BOTH EYES Last administered on 05/28/17 08:17 ; Admin Dose 1 DROP; Start 05/24/17 at 17:00 Piperacillin Sod/ Tazobactam Sod (Zosyn 2.25gm/ 50ml (Pmx)) 50 ml @ 100 mls/hr Q8 IVPB Last administered on 05/28/17 05:09; Admin Dose 100 MLS/HR; Start at 16:00 Miscellaneous Information (*Rx Drug Level Order Reminder*) VANCOMYCIN RANDOM ON 05/02... ONCE ONCE XX ; Start 05/29/17 at 05:00; Stop 05/29/17 at 05:01 CARROLL RIOS NP May 28, 2017 12:53
--- NOTE | 2017-05-28 12:54 | PN ---
Date/Time of Note Date/Time of Note DATE: 05/28/17 TIME: 12:50 Assessment/Plan VTE Prophylaxis VTE Prophylaxis Intervention: SCD's Lines/Catheters [facility] (from [facility]): Peripheral IV Urinary Cath still in place: No Assessment/Plan Assessment/Plan 1. Sepsis secondary to PNA and possible line sepsis 2. Bilateral perihilar and basilar pneumonia 3. Fluid overload with interstitial pulmonary edema and bilateral pleural effusions with preserved EF on echo 4. End-stage renal disease on hemodialysis 5. Rule out an acute coronary syndrome 6. Chronic normocytic anemia 7. Staph aureus bacteremia r/o line sepsis 8. DO NOT RESUSCITATE 9. Dyslipidemia with low HDL 10. Chronic dementia with intermittent agitation PLAN: HD as per nephrology, HD today Blood culture grew Stahylococcus aureus,ID following, recommending to remove permacath, will have Nephrology to decide on that. IV abx for PNA and sepsis pt has been lethargic, bedridden, Bp stable, S/p palliative care consultatin yesteday, will need family meeting to discuss goals of care i had a talk with daughter today- who is interseted in having that meeting tomorrow SW to see pt SCD for DVT Prophylaxis Subjective 24 Hr Interval Summary Free Text/Dictation pt lethargic, not eating well, ID followed up, pt has bacteremia with staph Exam/Review of Systems Vital Signs Vitals Vital Signs Date Time Temp Pulse Resp B/P Pulse Ox O2 Delivery O2 Flow Rate FiO2 05/28/17 08:25 95 24 153/72 05/28/17 08:14 98.1 94 05/27/17 23:50 3.0 05/27/17 20:00 Nasal Cannula Intake and Output 05/27/17 05/27/17 05/28/17 15:00 23:00 07:00 Intake Total 300 ml 350 ml 937.5 ml Output Total 0 ml 0 ml Balance 300 ml 350 ml 937.5 ml Exam GENERAL: The patient lying in bed, no acute distress. looks comfortable, but unresponsive HEENT: Pupils equal, round, react to light. Extraocular muscles intact. NECK: Supple, no thyromegaly. LUNGS: Slightly decreased breath sounds bilaterally. CARDIOVASCULAR: S1, S2 heard. No rubs or gallops. ABDOMEN: Soft, nontender, nondistended. Normal bowel sounds. No rebound or guarding. MUSCULOSKELETAL: No lower extremity edema bilaterally. NEUROLOGIC: Unable to fully assess as the patient is altered. Results Result Diagram: 05/28/17 0505 05/28/17 0505 Results 24 hrs Laboratory Tests Test 05/28/17 05:05 White Blood Count 16.2 H Red Blood Count 3.41 L Hemoglobin 10.9 L Hematocrit 33.3 L Mean Corpuscular Volume 97.7 Mean Corpuscular Hemoglobin 32.0 Mean Corpuscular Hemoglobin Concent 32.7 Red Cell Distribution Width 13.5 Platelet Count 170 Mean Platelet Volume 10.8 H Neutrophils % 79.7 H Lymphocytes % 10.3 L Monocytes % 7.4 Eosinophils % 0.8 Basophils % 0.3 Nucleated Red Blood Cells % 0.0 Neutrophils # 12.9 H Lymphocytes # 1.7 Monocytes # 1.2 H Eosinophils # 0.1 Basophils # 0.1 Nucleated Red Blood Cells # 0.0 Sodium Level 140 Potassium Level 4.0 Chloride Level 100 Carbon Dioxide Level 18 L Anion Gap 26 H Blood Urea Nitrogen 65 H Creatinine 6.10 H Glucose Level 80 Calcium Level 8.5 Medications Medications Current Medications Ondansetron HCl (Zofran Inj) 4 mg Q6H PRN IV NAUSEA AND/OR VOMITING; Start at 14:00 Acetaminophen (Tylenol Tab) 650 mg Q6H PRN PO PAIN LEVEL 1-3 OR FEVER; Start at 14:00 Acetaminophen/ Hydrocodone Bitart ([place] (5/325)) 1 tab Q6H PRN PO MODERATE PAIN LEVEL 4-6; Start 05/24/17 at 14:00 Morphine Sulfate (morphine) 2 mg Q4H PRN IV SEVERE PAIN LEVEL 7-10; Start 05/24 at 14:00 Docusate Sodium (Colace) 100 mg Q12H PRN PO CONSTIPATION; Start 05/24/17 at 14: 00 Magnesium Hydroxide (Milk Of Mag) 30 ml DAILY PRN PO CONSTIPATION; Start at 14:00 Sodium Biphosphate/ Sodium Phosphate (Fleet Enema) 133 ml DAILY PRN [place] CONSTIPATION; Start 05/24/17 at 14:00 Heparin Sodium (Porcine) 5000 unit 5,000 unit Q12 SC Last administered on t 08:17; Admin Dose 5,000 UNIT; Start 05/24/17 at 21:00 Sodium Chloride (1/2 NS) 1,000 ml @ 75 mls/hr [id number] IV Last administered on 05/28/17 03:33; Admin Dose 75 MLS/HR; Start 05/24/17 at 13:52 Vancomycin HCl (Vanco Iv Per Pharmacy) VANCOMYCIN PER PHARMACY NOTE XX ; Start 05/24/17 at 14:00 Hydralazine HCl (Apresoline) 10 mg Q6H PRN IV ELEVATED BLOOD PRESSURE; Start at 14:00 Nitroglycerin (Nitroglycerin (Sl Tab) 0.4 Mg) 1 tab Q5M PRN SL ANGINA; Start at 14:00 Amlodipine Besylate (Norvasc) 10 mg DAILY PO ; Start 05/25/17 at 09:00 Carvedilol (Coreg) 12.5 mg BID PO ; Start 05/24/17 at 21:00 Docusate Sodium (Colace) 100 mg BID PO ; Start 05/24/17 at 21:00 Guaifenesin/ Dextromethorphan (Robitussin Dm Liquid Cup) 10 ml QID PRN PO COUGH ; Start 05/24/17 at 14:00 Hydralazine HCl (Apresoline) 50 mg Q8 PO ; Start 05/24/17 at 14:00 Lactulose (Enulose) 20 gm QID PRN PO CONSTIPATION; Start 05/24/17 at 14:00 Multivit/Ca Carb/ B Cmplx/FA/Prenat (Nohemi-Brendan) 1 tab DAILY PO ; Start 05/25/17 at 09:00 Senna/Docusate Sodium (Senokot-S) 2 tab QHS PRN PO CONSTIPATION; Start at 14:00 Simethicone (Mylicon) 80 mg Q6H PRN PO DISTENSION/GAS/BLOATING; Start 05/24/17 at 14:00 Eye Lubricant 1 drop 1 drop QID BOTH EYES Last administered on 05/28/17 08:17 ; Admin Dose 1 DROP; Start 05/24/17 at 17:00 Piperacillin Sod/ Tazobactam Sod (Zosyn 2.25gm/ 50ml (Pmx)) 50 ml @ 100 mls/hr Q8 IVPB Last administered on 05/28/17 05:09; Admin Dose 100 MLS/HR; Start at 16:00 Miscellaneous Information (*Rx Drug Level Order Reminder*) VANCOMYCIN RANDOM ON 05/02... ONCE ONCE XX ; Start 05/29/17 at 05:00; Stop 05/29/17 at 05:01 BIJAL NETTLES MD May 28, 2017 12:54
--- NOTE | 2017-05-28 14:06 | CONS ---
Date/Time of Note Date/Time of Note DATE: 05/28/17 TIME: 14:02 Assessment/Plan Assessment/Plan Chief Complaint/Hosp Course 82 yo male resident of SNF sent for sepsisi syndrome. Underlying dementia to be explored further with family members. ESRD on Hemodialysis Bilateral PNA F/E disorders Incomplete data base Problems: Additional Assessment/Plan Family conference with patient's and daughter by conference call. We have discussed his current major medical condition and the fact that he has a very serious pneumonia with bacteria in his bloodstream. They have given the background and so far as patient has been admitted some 5 times in the recent past for infection related illness. And also that he has been bedridden in a [facility] unit for 1 year prior to this hospitalization and has generally been deteriorating. We discussed his prognosis they expressed her understanding concerns and hopes for some improvement in acceptable quality of life. However we reviewed their concerns that he does not suffer. We discussed his estimated prognosis which is approximately 3 months based on underlying dementia's major medical illnesses end-stage renal disease on hemodialysis and sepsis syndrome, multiple prior hospitalizations .Family members have decided to continue with this level of care and continue to DO NOT RESUSCITATE but we will discuss his clinical condition in 2 days. My impressions are in the event that he does not significantly improve they are receptive to comfort measures. Consultation Date/Type/Reason Admit Date/Time May 24, 2017 at 12:52 Initial Consult Date 05/26/17 Type of Consultation: ID Exam/Review of Systems Vital Signs Vitals Vital Signs Date Time Temp Pulse Resp B/P Pulse Ox O2 Delivery O2 Flow Rate FiO2 05/28/17 08:25 95 24 153/72 05/28/17 08:14 98.1 94 05/27/17 23:50 3.0 05/27/17 20:00 Nasal Cannula Intake and Output 05/27/17 05/27/17 05/28/17 15:00 23:00 07:00 Intake Total 300 ml 350 ml 937.5 ml Output Total 0 ml 0 ml Balance 300 ml 350 ml 937.5 ml Results Result Diagram: 05/28/17 0505 05/28/17 0505 Results 24 hrs Laboratory Tests Test 05/28/17 05:05 White Blood Count 16.2 H Red Blood Count 3.41 L Hemoglobin 10.9 L Hematocrit 33.3 L Mean Corpuscular Volume 97.7 Mean Corpuscular Hemoglobin 32.0 Mean Corpuscular Hemoglobin Concent 32.7 Red Cell Distribution Width 13.5 Platelet Count 170 Mean Platelet Volume 10.8 H Neutrophils % 79.7 H Lymphocytes % 10.3 L Monocytes % 7.4 Eosinophils % 0.8 Basophils % 0.3 Nucleated Red Blood Cells % 0.0 Neutrophils # 12.9 H Lymphocytes # 1.7 Monocytes # 1.2 H Eosinophils # 0.1 Basophils # 0.1 Nucleated Red Blood Cells # 0.0 Sodium Level 140 Potassium Level 4.0 Chloride Level 100 Carbon Dioxide Level 18 L Anion Gap 26 H Blood Urea Nitrogen 65 H Creatinine 6.10 H Glucose Level 80 Calcium Level 8.5 Medications Medications Current Medications Ondansetron HCl (Zofran Inj) 4 mg Q6H PRN IV NAUSEA AND/OR VOMITING; Start at 14:00 Acetaminophen (Tylenol Tab) 650 mg Q6H PRN PO PAIN LEVEL 1-3 OR FEVER; Start at 14:00 Acetaminophen/ Hydrocodone Bitart ([place] (5/325)) 1 tab Q6H PRN PO MODERATE PAIN LEVEL 4-6; Start 05/24/17 at 14:00 Morphine Sulfate (morphine) 2 mg Q4H PRN IV SEVERE PAIN LEVEL 7-10; Start 05/24 at 14:00 Docusate Sodium (Colace) 100 mg Q12H PRN PO CONSTIPATION; Start 05/24/17 at 14: 00 Magnesium Hydroxide (Milk Of Mag) 30 ml DAILY PRN PO CONSTIPATION; Start at 14:00 Sodium Biphosphate/ Sodium Phosphate (Fleet Enema) 133 ml DAILY PRN [place] CONSTIPATION; Start 05/24/17 at 14:00 Heparin Sodium (Porcine) 5000 unit 5,000 unit Q12 SC Last administered on 08:17; Admin Dose 5,000 UNIT; Start 05/24/17 at 21:00 Sodium Chloride (1/2 NS) 1,000 ml @ 75 mls/hr [id number] IV Last administered on 05/28/17 03:33; Admin Dose 75 MLS/HR; Start 05/24/17 at 13:52 Vancomycin HCl (Vanco Iv Per Pharmacy) VANCOMYCIN PER PHARMACY NOTE XX ; Start 05/24/17 at 14:00 Hydralazine HCl (Apresoline) 10 mg Q6H PRN IV ELEVATED BLOOD PRESSURE; Start at 14:00 Nitroglycerin (Nitroglycerin (Sl Tab) 0.4 Mg) 1 tab Q5M PRN SL ANGINA; Start at 14:00 Amlodipine Besylate (Norvasc) 10 mg DAILY PO ; Start 05/25/17 at 09:00 Carvedilol (Coreg) 12.5 mg BID PO ; Start 05/24/17 at 21:00 Docusate Sodium (Colace) 100 mg BID PO ; Start 05/24/17 at 21:00 Guaifenesin/ Dextromethorphan (Robitussin Dm Liquid Cup) 10 ml QID PRN PO COUGH ; Start 05/24/17 at 14:00 Hydralazine HCl (Apresoline) 50 mg Q8 PO ; Start 05/24/17 at 14:00 Lactulose (Enulose) 20 gm QID PRN PO CONSTIPATION; Start 05/24/17 at 14:00 Multivit/Ca Carb/ B Cmplx/FA/Prenat (Nohemi-Brendan) 1 tab DAILY PO ; Start 05/25/17 at 09:00 Senna/Docusate Sodium (Senokot-S) 2 tab QHS PRN PO CONSTIPATION; Start at 14:00 Simethicone (Mylicon) 80 mg Q6H PRN PO DISTENSION/GAS/BLOATING; Start 05/24/17 at 14:00 Eye Lubricant 1 drop 1 drop QID BOTH EYES Last administered on 05/28/17 08:17 ; Admin Dose 1 DROP; Start 05/24/17 at 17:00 Piperacillin Sod/ Tazobactam Sod (Zosyn 2.25gm/ 50ml (Pmx)) 50 ml @ 100 mls/hr Q8 IVPB Last administered on 05/28/17 05:09; Admin Dose 100 MLS/HR; Start at 16:00 Miscellaneous Information (*Rx Drug Level Order Reminder*) VANCOMYCIN RANDOM ON 05/02... ONCE ONCE XX ; Start 05/29/17 at 05:00; Stop 05/29/17 at 05:01 RAYNE CARNEY May 28, 2017 14:06
[2017-05-29] MEDS: PIPER-TAZO 2.25 GM (PMX) 50 ML IVPB SCH ×3 (05:05→21:55)
[2017-05-29] MEDS: PANTOPRAZOLE (EC) 40 MG TAB PO SCH (07:30)
[2017-05-29 07:56] LABS: ADD SCAN DIFF NO
[2017-05-29 08:04] LABS: BASOPHILS % 0.3 % (0.0-2.0); EOSINOPHILS # 0.1 10^3/ul (0.0-0.5); EOSINOPHILS % 0.7 % (0.0-7.0); HEMATOCRIT 34.6 % (42.0-52.0); HEMOGLOBIN 11.3 g/dl (14.0-18.0); LYMPHOCYTES # 1.5 10^3/ul (0.8-2.9); LYMPHOCYTES % 10.5 % (15.0-51.0); MEAN CORPUSCULAR HEMOGLOBIN 31.8 pg (29.0-33.0); MEAN CORPUSCULAR HGB CONC 32.7 g/dl (32.0-37.0); MEAN CORPUSCULAR VOLUME 97.5 fl (82.0-101.0); MEAN PLATELET VOLUME 10.8 fl (7.4-10.4); MONOCYTE # 1.4 10^3/ul (0.3-0.9); MONOCYTES % 9.9 % (0.0-11.0); NEUTROPHIL # 10.9 10^3/ul (1.6-7.5); PLATELET COUNT 192 10^3/UL (140-415); RED BLOOD COUNT 3.55 10^6/ul (4.70-6.10); RED CELL DISTRIBUTION WIDTH 13.5 % (11.5-14.5); WHITE BLOOD COUNT 14.1 10^3/ul (4.8-10.8)
[2017-05-29 08:09] VITALS: BP 143/60; RESP 23
[2017-05-29 08:25] LABS: CALCIUM 8.5 mg/dl (8.4-10.2); CREATININE 5.13 mg/dl (0.61-1.24); POTASSIUM 4.1 mmol/L (3.5-5.1)
[2017-05-29] MEDS: AMLODIPINE 10 MG TAB PO SCH (09:00)
[2017-05-29] MEDS: MULTIVIT/CA CARB/B CMPLX/FA TAB PO SCH (09:00)
[2017-05-29] MEDS: DOCUSATE SODIUM 100 MG CAP PO SCH ×2 (09:00→21:00)
[2017-05-29] MEDS: ARTIFICIAL TEARS 15 ML OPH BOTH EYES SCH ×4 (09:45→20:50)
[2017-05-29] MEDS: HEPARIN 5,000 UNIT/0.5 ML VIAL SC SCH ×2 (09:46→20:50)
[2017-05-29] MEDS ORDERED: VANCOMYCIN 1.5 GM in SOD CHLORIDE 0.9% 250 ML IVPB SCH (10:30)
[2017-05-29] MEDS: SOD CHLORIDE 0.45% 1,000 ML IV SCH (13:30)
--- NOTE | 2017-05-29 13:44 | CONS ---
Date/Time of Note Date/Time of Note DATE: 05/29/17 TIME: 13:42 Assessment/Plan Assessment/Plan Chief Complaint/Hosp Course Subjective: No acute changes overnight, patient is laying comfortably in bed, afebrile Microbiology: Blood cultures since admission growing MRSA Indwelling: Left chest permacath Antimicrobials: Vancomycin and Zosyn Diagnostics: 1. Cardiomegaly with congestive heart failure interstitial pulmonary edema with bilateral pleural effusions. The pulmonary edema has worsened as compared to . 2. Consolidative infiltrate/atelectasis obscuring the diaphragms. 3. Dialysis catheter near the junction of the right atrium superior vena cava. 4. Spondylosis of the thoracic spine. Or 5 atherosclerosis of the aortic arch. Physical examination: This is a well-developed obese fragile elderly man who is in no distress. Head atraumatic normocephalic, sclera nonicteric. Neck is supple. Chest rise symmetrical, breath sounds diminished to bases. Heart S1- S2. Abdomen is soft bowel tones hypoactive. Extremities with trace edema. Assessment: 1. MRSA bacteremia, likely line sepsis 2. Pneumonia 3. End-stage renal disease 4. Dementia Plan: Clinically unchanged, 2D echo revealed no vegetations, patient is on appropriate antibiotics, CODE STATUS changed to DNR, possible conversion to hospice care. Discussed with Dr. Von MICHELLE staff Problems: Consultation Date/Type/Reason Admit Date/Time May 24, 2017 at 12:52 Initial Consult Date 05/26/17 Type of Consultation: ID Exam/Review of Systems Vital Signs Vitals Vital Signs Date Time Temp Pulse Resp B/P Pulse Ox O2 Delivery O2 Flow Rate FiO2 05/29/17 08:41 2.0 05/29/17 08:09 98.4 94 23 143/60 94 05/29/17 08:00 Nasal Cannula Intake and Output 05/28/17 05/28/17 05/29/17 15:00 23:00 07:00 Intake Total 925 ml 662.5 ml Output Total 0 ml Balance 925 ml 662.5 ml Results Result Diagram: 05/29/17 0742 05/29/17 0742 Results 24 hrs Laboratory Tests Test 05/29/17 05:35 05/29/17 07:42 Random Vancomycin Level 9.9 White Blood Count 14.1 H Red Blood Count 3.55 L Hemoglobin 11.3 L Hematocrit 34.6 L Mean Corpuscular Volume 97.5 Mean Corpuscular Hemoglobin 31.8 Mean Corpuscular Hemoglobin Concent 32.7 Red Cell Distribution Width 13.5 Platelet Count 192 Mean Platelet Volume 10.8 H Neutrophils % 77.0 Lymphocytes % 10.5 L Monocytes % 9.9 Eosinophils % 0.7 Basophils % 0.3 Nucleated Red Blood Cells % 0.0 Neutrophils # 10.9 H Lymphocytes # 1.5 Monocytes # 1.4 H Eosinophils # 0.1 Basophils # 0.0 Nucleated Red Blood Cells # 0.0 Sodium Level 138 Potassium Level 4.1 Chloride Level 98 Carbon Dioxide Level 20 L Anion Gap 24 H Blood Urea Nitrogen 49 #H Creatinine 5.13 H Glucose Level 83 Calcium Level 8.5 Medications Medications Current Medications Ondansetron HCl (Zofran Inj) 4 mg Q6H PRN IV NAUSEA AND/OR VOMITING; Start at 14:00 Acetaminophen (Tylenol Tab) 650 mg Q6H PRN PO PAIN LEVEL 1-3 OR FEVER; Start at 14:00 Acetaminophen/ Hydrocodone Bitart ([place] (5/325)) 1 tab Q6H PRN PO MODERATE PAIN LEVEL 4-6; Start 05/24/17 at 14:00 Morphine Sulfate (morphine) 2 mg Q4H PRN IV SEVERE PAIN LEVEL 7-10; Start 05/24 at 14:00 Docusate Sodium (Colace) 100 mg Q12H PRN PO CONSTIPATION; Start 05/24/17 at 14: 00 Magnesium Hydroxide (Milk Of Mag) 30 ml DAILY PRN PO CONSTIPATION; Start at 14:00 Sodium Biphosphate/ Sodium Phosphate (Fleet Enema) 133 ml DAILY PRN [place] CONSTIPATION; Start 05/24/17 at 14:00 Heparin Sodium (Porcine) 5000 unit 5,000 unit Q12 SC Last administered on 09:46; Admin Dose 5,000 UNIT; Start 05/24/17 at 21:00 Sodium Chloride (1/2 NS) 1,000 ml @ 75 mls/hr [id number] IV Last administered on 05/29/17 13:30; Admin Dose 75 MLS/HR; Start 05/24/17 at 13:52 Vancomycin HCl (Vanco Iv Per Pharmacy) VANCOMYCIN PER PHARMACY NOTE XX ; Start 05/24/17 at 14:00 Hydralazine HCl (Apresoline) 10 mg Q6H PRN IV ELEVATED BLOOD PRESSURE; Start at 14:00 Nitroglycerin (Nitroglycerin (Sl Tab) 0.4 Mg) 1 tab Q5M PRN SL ANGINA; Start at 14:00 Amlodipine Besylate (Norvasc) 10 mg DAILY PO ; Start 05/25/17 at 09:00 Carvedilol (Coreg) 12.5 mg BID PO ; Start 05/24/17 at 21:00 Docusate Sodium (Colace) 100 mg BID PO ; Start 05/24/17 at 21:00 Guaifenesin/ Dextromethorphan (Robitussin Dm Liquid Cup) 10 ml QID PRN PO COUGH ; Start 05/24/17 at 14:00 Hydralazine HCl (Apresoline) 50 mg Q8 PO ; Start 05/24/17 at 14:00 Lactulose (Enulose) 20 gm QID PRN PO CONSTIPATION; Start 05/24/17 at 14:00 Multivit/Ca Carb/ B Cmplx/FA/Prenat (Nohemi-Brendan) 1 tab DAILY PO ; Start 05/25/17 at 09:00 Senna/Docusate Sodium (Senokot-S) 2 tab QHS PRN PO CONSTIPATION; Start at 14:00 Simethicone (Mylicon) 80 mg Q6H PRN PO DISTENSION/GAS/BLOATING; Start 05/24/17 at 14:00 Eye Lubricant 1 drop 1 drop QID BOTH EYES Last administered on 05/29/17 13:29 ; Admin Dose 1 DROP; Start 05/24/17 at 17:00 Piperacillin Sod/ Tazobactam Sod 50 ml @ 100 mls/hr Q8 IVPB Last administered on 05/29/17 05:05; Admin Dose 100 MLS/HR; Start 05/24/17 at 16:00 Vancomycin HCl/ Sodium Chloride (Vancocin/NS) 250 ml @ 83.333 mls/ hr ONCE IVPB Last administered on 05/29/17 10:48; Admin Dose 83.333 MLS/HR; Start at 10:30; Stop 05/29/17 at 18:00 CARROLL RIOS NP May 29, 2017 13:44
[2017-05-29] MEDS ORDERED: MUPIROCIN 2% 22 GM OINT TOP SCH (21:00)
[2017-05-29 21:40] VITALS: BP 138/72; RESP 20
[2017-05-29] MEDS: MUPIROCIN 2% 22 GM OINT TOP SCH (21:55)
--- NOTE | 2017-05-29 22:02 | PN ---
Date/Time of Note Date/Time of Note DATE: 05/29/17 TIME: 22:00 Assessment/Plan VTE Prophylaxis VTE Prophylaxis Intervention: SCD's Lines/Catheters IV [facility] Type (from [facility] Peripheral IV Urinary Cath still in place: No Assessment/Plan Assessment/Plan 1. Sepsis secondary to PNA and possible line sepsis 2. Bilateral perihilar and basilar pneumonia 3. Fluid overload with interstitial pulmonary edema and bilateral pleural effusions with preserved EF on echo 4. End-stage renal disease on hemodialysis 5. Rule out an acute coronary syndrome 6. Chronic normocytic anemia 7. Staph aureus bacteremia r/o line sepsis 8. DO NOT RESUSCITATE 9. Dyslipidemia with low HDL 10. Chronic dementia with intermittent agitation PLAN: HD as per nephrology, HD today Blood culture grew Stahylococcus aureus,ID following, recommending to remove permacath, will have Nephrology to decide on that. IV abx for PNA and sepsis pt has been lethargic, bedridden, Bp stable, S/p family meeting- DNR status, family wants to wait for few more days before decidign for Comfort care SCD for DVT Prophylaxis Subjective 24 Hr Interval Summary Free Text/Dictation s/p family meeting, pt is DNR< BP stable Exam/Review of Systems Vital Signs Vitals Vital Signs Date Time Temp Pulse Resp B/P Pulse Ox O2 Delivery O2 Flow Rate FiO2 05/29/17 19:40 2.0 05/29/17 08:09 98.4 94 23 143/60 94 05/29/17 08:00 Nasal Cannula Intake and Output 05/28/17 05/28/17 05/29/17 15:00 23:00 07:00 Intake Total 925 ml 662.5 ml Output Total 0 ml Balance 925 ml 662.5 ml Exam GENERAL: The patient lying in bed, no acute distress. looks comfortable, but unresponsive HEENT: Pupils equal, round, react to light. Extraocular muscles intact. NECK: Supple, no thyromegaly. LUNGS: Slightly decreased breath sounds bilaterally. CARDIOVASCULAR: S1, S2 heard. No rubs or gallops. ABDOMEN: Soft, nontender, nondistended. Normal bowel sounds. No rebound or guarding. MUSCULOSKELETAL: No lower extremity edema bilaterally. NEUROLOGIC: Unable to fully assess as the patient is altered. Results Result Diagram: 05/29/17 0742 05/29/17 0742 Results 24 hrs Laboratory Tests Test 05/29/17 05:35 05/29/17 07:42 Random Vancomycin Level 9.9 White Blood Count 14.1 H Red Blood Count 3.55 L Hemoglobin 11.3 L Hematocrit 34.6 L Mean Corpuscular Volume 97.5 Mean Corpuscular Hemoglobin 31.8 Mean Corpuscular Hemoglobin Concent 32.7 Red Cell Distribution Width 13.5 Platelet Count 192 Mean Platelet Volume 10.8 H Neutrophils % 77.0 Lymphocytes % 10.5 L Monocytes % 9.9 Eosinophils % 0.7 Basophils % 0.3 Nucleated Red Blood Cells % 0.0 Neutrophils # 10.9 H Lymphocytes # 1.5 Monocytes # 1.4 H Eosinophils # 0.1 Basophils # 0.0 Nucleated Red Blood Cells # 0.0 Sodium Level 138 Potassium Level 4.1 Chloride Level 98 Carbon Dioxide Level 20 L Anion Gap 24 H Blood Urea Nitrogen 49 #H Creatinine 5.13 H Glucose Level 83 Calcium Level 8.5 Medications Medications Current Medications Ondansetron HCl (Zofran Inj) 4 mg Q6H PRN IV NAUSEA AND/OR VOMITING; Start at 14:00 Acetaminophen (Tylenol Tab) 650 mg Q6H PRN PO PAIN LEVEL 1-3 OR FEVER; Start at 14:00 Acetaminophen/ Hydrocodone Bitart ([place] (5/325)) 1 tab Q6H PRN PO MODERATE PAIN LEVEL 4-6; Start 05/24/17 at 14:00 Morphine Sulfate (morphine) 2 mg Q4H PRN IV SEVERE PAIN LEVEL 7-10; Start 05/24 at 14:00 Docusate Sodium (Colace) 100 mg Q12H PRN PO CONSTIPATION; Start 05/24/17 at 14: 00 Magnesium Hydroxide (Milk Of Mag) 30 ml DAILY PRN PO CONSTIPATION; Start at 14:00 Sodium Biphosphate/ Sodium Phosphate (Fleet Enema) 133 ml DAILY PRN [place] CONSTIPATION; Start 05/24/17 at 14:00 Heparin Sodium (Porcine) 5000 unit 5,000 unit Q12 SC Last administered on t 20:50; Admin Dose 5,000 UNIT; Start 05/24/17 at 21:00 Sodium Chloride (1/2 NS) 1,000 ml @ 75 mls/hr [id number] IV Last administered on 05/29/17 13:30; Admin Dose 75 MLS/HR; Start 05/24/17 at 13:52 Vancomycin HCl (Vanco Iv Per Pharmacy) VANCOMYCIN PER PHARMACY NOTE XX ; Start 05/24/17 at 14:00 Hydralazine HCl (Apresoline) 10 mg Q6H PRN IV ELEVATED BLOOD PRESSURE; Start at 14:00 Nitroglycerin (Nitroglycerin (Sl Tab) 0.4 Mg) 1 tab Q5M PRN SL ANGINA; Start at 14:00 Amlodipine Besylate (Norvasc) 10 mg DAILY PO ; Start 05/25/17 at 09:00 Carvedilol (Coreg) 12.5 mg BID PO ; Start 05/24/17 at 21:00 Docusate Sodium (Colace) 100 mg BID PO ; Start 05/24/17 at 21:00 Guaifenesin/ Dextromethorphan (Robitussin Dm Liquid Cup) 10 ml QID PRN PO COUGH ; Start 05/24/17 at 14:00 Hydralazine HCl (Apresoline) 50 mg Q8 PO ; Start 05/24/17 at 14:00 Lactulose (Enulose) 20 gm QID PRN PO CONSTIPATION; Start 05/24/17 at 14:00 Multivit/Ca Carb/ B Cmplx/FA/Prenat (Nohemi-Brendan) 1 tab DAILY PO ; Start 05/25/17 at 09:00 Senna/Docusate Sodium (Senokot-S) 2 tab QHS PRN PO CONSTIPATION; Start at 14:00 Simethicone (Mylicon) 80 mg Q6H PRN PO DISTENSION/GAS/BLOATING; Start 05/24/17 at 14:00 Eye Lubricant 1 drop 1 drop QID BOTH EYES Last administered on 05/29/17 20:50 ; Admin Dose 1 DROP; Start 05/24/17 at 17:00 Piperacillin Sod/ Tazobactam Sod (Zosyn 2.25gm/ 50ml (Pmx)) 50 ml @ 100 mls/hr Q8 IVPB Last administered on 05/29/17 21:55; Admin Dose 100 MLS/HR; Start at 16:00 Mupirocin (Bactroban) 1 applic DAILY TOP Last administered on 05/29/17t 21:55; Admin Dose 1 APPLIC; Start 05/29/17 at 21:00 BIJAL NETTLES MD May 29, 2017 22:02
--- NOTE | 2017-05-29 22:19 | CONS ---
Date/Time of Note Date/Time of Note DATE: 05/29/17 TIME: 22:14 Consult Date/Type/Reason Admit Date/Time May 24, 2017 at 12:52 Initial Consult Date 05/26/17 Type of Consultation: nephrology Subjective opens eyes, not communicating much as usual baseline. Objective Vital Signs Date Time Temp Pulse Resp B/P Pulse Ox O2 Delivery O2 Flow Rate FiO2 05/29/17 19:40 2.0 05/29/17 08:09 98.4 94 23 143/60 94 05/29/17 08:00 Nasal Cannula Intake and Output 05/28/17 05/28/17 05/29/17 15:00 23:00 07:00 Intake Total 925 ml 662.5 ml Output Total 0 ml Balance 925 ml 662.5 ml Exam chest clear, [facility] regular abdomen bs present, mildly distended trace edema bilaterally Results/Medications Result Diagram: 05/29/17 0742 05/29/17 0742 Results 24 hrs Laboratory Tests Test 05/29/17 05:35 05/29/17 07:42 Random Vancomycin Level 9.9 White Blood Count 14.1 H Red Blood Count 3.55 L Hemoglobin 11.3 L Hematocrit 34.6 L Mean Corpuscular Volume 97.5 Mean Corpuscular Hemoglobin 31.8 Mean Corpuscular Hemoglobin Concent 32.7 Red Cell Distribution Width 13.5 Platelet Count 192 Mean Platelet Volume 10.8 H Neutrophils % 77.0 Lymphocytes % 10.5 L Monocytes % 9.9 Eosinophils % 0.7 Basophils % 0.3 Nucleated Red Blood Cells % 0.0 Neutrophils # 10.9 H Lymphocytes # 1.5 Monocytes # 1.4 H Eosinophils # 0.1 Basophils # 0.0 Nucleated Red Blood Cells # 0.0 Sodium Level 138 Potassium Level 4.1 Chloride Level 98 Carbon Dioxide Level 20 L Anion Gap 24 H Blood Urea Nitrogen 49 #H Creatinine 5.13 H Glucose Level 83 Calcium Level 8.5 Medications Current Medications Ondansetron HCl (Zofran Inj) 4 mg Q6H PRN IV NAUSEA AND/OR VOMITING; Start at 14:00 Acetaminophen (Tylenol Tab) 650 mg Q6H PRN PO PAIN LEVEL 1-3 OR FEVER; Start at 14:00 Acetaminophen/ Hydrocodone Bitart ([place] (5/325)) 1 tab Q6H PRN PO MODERATE PAIN LEVEL 4-6; Start 05/24/17 at 14:00 Morphine Sulfate (morphine) 2 mg Q4H PRN IV SEVERE PAIN LEVEL 7-10; Start 05/24 at 14:00 Docusate Sodium (Colace) 100 mg Q12H PRN PO CONSTIPATION; Start 05/24/17 at 14: 00 Magnesium Hydroxide (Milk Of Mag) 30 ml DAILY PRN PO CONSTIPATION; Start at 14:00 Sodium Biphosphate/ Sodium Phosphate (Fleet Enema) 133 ml DAILY PRN [place] CONSTIPATION; Start 05/24/17 at 14:00 Heparin Sodium (Porcine) 5000 unit 5,000 unit Q12 SC Last administered on 20:50; Admin Dose 5,000 UNIT; Start 05/24/17 at 21:00 Sodium Chloride (1/2 NS) 1,000 ml @ 75 mls/hr [id number] IV Last administered on 05/29/17 13:30; Admin Dose 75 MLS/HR; Start 05/24/17 at 13:52 Vancomycin HCl (Vanco Iv Per Pharmacy) VANCOMYCIN PER PHARMACY NOTE XX ; Start 05/24/17 at 14:00 Hydralazine HCl (Apresoline) 10 mg Q6H PRN IV ELEVATED BLOOD PRESSURE; Start at 14:00 Nitroglycerin (Nitroglycerin (Sl Tab) 0.4 Mg) 1 tab Q5M PRN SL ANGINA; Start at 14:00 Amlodipine Besylate (Norvasc) 10 mg DAILY PO ; Start 05/25/17 at 09:00 Carvedilol (Coreg) 12.5 mg BID PO ; Start 05/24/17 at 21:00 Docusate Sodium (Colace) 100 mg BID PO ; Start 05/24/17 at 21:00 Guaifenesin/ Dextromethorphan (Robitussin Dm Liquid Cup) 10 ml QID PRN PO COUGH ; Start 05/24/17 at 14:00 Hydralazine HCl (Apresoline) 50 mg Q8 PO ; Start 05/24/17 at 14:00 Lactulose (Enulose) 20 gm QID PRN PO CONSTIPATION; Start 05/24/17 at 14:00 Multivit/Ca Carb/ B Cmplx/FA/Prenat (Nohemi-Brendan) 1 tab DAILY PO ; Start 05/25/17 at 09:00 Senna/Docusate Sodium (Senokot-S) 2 tab QHS PRN PO CONSTIPATION; Start at 14:00 Simethicone (Mylicon) 80 mg Q6H PRN PO DISTENSION/GAS/BLOATING; Start 05/24/17 at 14:00 Eye Lubricant 1 drop 1 drop QID BOTH EYES Last administered on 05/29/17 20:50 ; Admin Dose 1 DROP; Start 05/24/17 at 17:00 Piperacillin Sod/ Tazobactam Sod (Zosyn 2.25gm/ 50ml (Pmx)) 50 ml @ 100 mls/hr Q8 IVPB Last administered on 05/29/17 21:55; Admin Dose 100 MLS/HR; Start at 16:00 Mupirocin (Bactroban) 1 applic DAILY TOP Last administered on 05/29/17 21:55; Admin Dose 1 APPLIC; Start 05/29/17 at 21:00 Assessment/Plan Chief Complaint/Hosp Course esrd,hd friday hypertension controlled anemia, epogen as needed mrsa septicemia, on vancomycin, follow up cs negative, wbc improving possible pneumonia vs line sepsis cs blood positive mrsa 05/26, repeat blood cs 05/28, if persistent hd catheter will have to come out Problems: JEFFRY RAMIREZ MD May 29, 2017 22:19
[2017-05-30] VITALS (10 sets, daily range): BP systolic 95–164; BP diastolic 52–84; PULSE 80–104; RESP 16–18
[2017-05-30] MEDS: SOD CHLORIDE 0.45% 1,000 ML IV SCH (05:22)
[2017-05-30] MEDS: PIPER-TAZO 2.25 GM (PMX) 50 ML IVPB SCH ×2 (05:22→14:20)
[2017-05-30] MEDS: PANTOPRAZOLE (EC) 40 MG TAB PO SCH (07:30)
[2017-05-30] MEDS: AMLODIPINE 10 MG TAB PO SCH (09:00)
[2017-05-30] MEDS: DOCUSATE SODIUM 100 MG CAP PO SCH ×2 (09:00→21:00)
[2017-05-30] MEDS: MULTIVIT/CA CARB/B CMPLX/FA TAB PO SCH (09:00)
[2017-05-30] MEDS: ARTIFICIAL TEARS 15 ML OPH BOTH EYES SCH ×4 (09:19→20:32)
[2017-05-30] MEDS: MUPIROCIN 2% 22 GM OINT TOP SCH (09:19)
[2017-05-30] MEDS: HEPARIN 5,000 UNIT/0.5 ML VIAL SC SCH ×2 (09:21→20:32)
[2017-05-30 10:14] LABS: BASOPHILS % 0.3 % (0.0-2.0); EOSINOPHILS # 0.2 10^3/ul (0.0-0.5); EOSINOPHILS % 1.6 % (0.0-7.0); HEMATOCRIT 34.7 % (42.0-52.0); HEMOGLOBIN 11.4 g/dl (14.0-18.0); LYMPHOCYTES # 1.6 10^3/ul (0.8-2.9); LYMPHOCYTES % 14.1 % (15.0-51.0); MEAN CORPUSCULAR HEMOGLOBIN 31.8 pg (29.0-33.0); MEAN CORPUSCULAR HGB CONC 32.9 g/dl (32.0-37.0); MEAN CORPUSCULAR VOLUME 96.7 fl (82.0-101.0); MEAN PLATELET VOLUME 10.8 fl (7.4-10.4); MONOCYTE # 0.9 10^3/ul (0.3-0.9); MONOCYTES % 7.8 % (0.0-11.0); NEUTROPHIL # 8.6 10^3/ul (1.6-7.5); NEUTROPHILS % 74.6 % (39.0-77.0); PLATELET COUNT 203 10^3/UL (140-415); RED BLOOD COUNT 3.59 10^6/ul (4.70-6.10); RED CELL DISTRIBUTION WIDTH 13.6 % (11.5-14.5); WHITE BLOOD COUNT 11.5 10^3/ul (4.8-10.8)
--- NOTE | 2017-05-30 10:14 | PN ---
Date/Time of Note Date/Time of Note DATE: 05/30/17 TIME: 10:11 Assessment/Plan VTE Prophylaxis VTE Prophylaxis Intervention: SCD's Lines/Catheters IV [facility] Peripheral IV Urinary Cath still in place: No Assessment/Plan Assessment/Plan 1. Sepsis secondary to PNA and possible line sepsis 2. Bilateral perihilar and basilar pneumonia 3. Fluid overload with interstitial pulmonary edema and bilateral pleural effusions with preserved EF on echo 4. End-stage renal disease on hemodialysis 5. Rule out an acute coronary syndrome 6. Chronic normocytic anemia 7. Staph aureus bacteremia r/o line sepsis 8. DO NOT RESUSCITATE 9. Dyslipidemia with low HDL 10. Chronic dementia with intermittent agitation PLAN: HD as per nephrology-pt regular schedule for HD is MWF, here in hospital he is getting TTS schedule Blood culture grew Stahylococcus aureus,ID following, recommending to remove permacath, will have Nephrology to decide on that. IV abx for PNA and sepsis pt has been lethargic, bedridden, Bp stable, S/p family meeting- DNR status, family wants to hold off on hospice care at this time SCD for DVT Prophylaxis Subjective 24 Hr Interval Summary Free Text/Dictation remains table, s/p HD yesterday, Family decided to hold off on Hospice Exam/Review of Systems Vital Signs Vitals Vital Signs Date Time Temp Pulse Resp B/P Pulse Ox O2 Delivery O2 Flow Rate FiO2 05/30/17 07:55 98.5 89 18 146/71 96 05/30/17 01:24 2.0 05/29/17 19:50 Nasal Cannula Intake and Output 05/29/17 05/29/17 05/30/17 15:00 23:00 07:00 Intake Total 525 ml 575 ml 300 ml Output Total 0 ml 0 ml Balance 525 ml 575 ml 300 ml Exam GENERAL: The patient lying in bed, no acute distress. looks comfortable, but unresponsive HEENT: Pupils equal, round, react to light. Extraocular muscles intact. NECK: Supple, no thyromegaly. LUNGS: Slightly decreased breath sounds bilaterally. CARDIOVASCULAR: S1, S2 heard. No rubs or gallops. ABDOMEN: Soft, nontender, nondistended. Normal bowel sounds. No rebound or guarding. MUSCULOSKELETAL: No lower extremity edema bilaterally. NEUROLOGIC: Unable to fully assess as the patient is altered Results Result Diagram: 05/29/17 0742 05/29/17 0742 Medications Medications Current Medications Ondansetron HCl (Zofran Inj) 4 mg Q6H PRN IV NAUSEA AND/OR VOMITING; Start at 14:00 Acetaminophen (Tylenol Tab) 650 mg Q6H PRN PO PAIN LEVEL 1-3 OR FEVER; Start at 14:00 Acetaminophen/ Hydrocodone Bitart ([place] (5/325)) 1 tab Q6H PRN PO MODERATE PAIN LEVEL 4-6; Start 05/24/17 at 14:00 Morphine Sulfate (morphine) 2 mg Q4H PRN IV SEVERE PAIN LEVEL 7-10; Start 05/24 at 14:00 Docusate Sodium (Colace) 100 mg Q12H PRN PO CONSTIPATION; Start 05/24/17 at 14: 00 Magnesium Hydroxide (Milk Of Mag) 30 ml DAILY PRN PO CONSTIPATION; Start at 14:00 Sodium Biphosphate/ Sodium Phosphate (Fleet Enema) 133 ml DAILY PRN [place] CONSTIPATION; Start 05/24/17 at 14:00 Heparin Sodium (Porcine) 5000 unit 5,000 unit Q12 SC Last administered on 09:21; Admin Dose 5,000 UNIT; Start 05/24/17 at 21:00 Sodium Chloride (1/2 NS) 1,000 ml @ 40 mls/hr Q24H IV Last administered on 05:22; Admin Dose 40 MLS/HR; Start 05/24/17 at 13:52 Vancomycin HCl (Vanco Iv Per Pharmacy) VANCOMYCIN PER PHARMACY NOTE XX ; Start 05/24/17 at 14:00 Hydralazine HCl (Apresoline) 10 mg Q6H PRN IV ELEVATED BLOOD PRESSURE; Start at 14:00 Nitroglycerin (Nitroglycerin (Sl Tab) 0.4 Mg) 1 tab Q5M PRN SL ANGINA; Start at 14:00 Amlodipine Besylate (Norvasc) 10 mg DAILY PO ; Start 05/25/17 at 09:00 Carvedilol (Coreg) 12.5 mg BID PO ; Start 05/24/17 at 21:00 Docusate Sodium (Colace) 100 mg BID PO ; Start 05/24/17 at 21:00 Guaifenesin/ Dextromethorphan (Robitussin Dm Liquid Cup) 10 ml QID PRN PO COUGH ; Start 05/24/17 at 14:00 Hydralazine HCl (Apresoline) 50 mg Q8 PO ; Start 05/24/17 at 14:00 Lactulose (Enulose) 20 gm QID PRN PO CONSTIPATION; Start 05/24/17 at 14:00 Multivit/Ca Carb/ B Cmplx/FA/Prenat (Nohemi-Brendan) 1 tab DAILY PO ; Start 05/25/17 at 09:00 Senna/Docusate Sodium (Senokot-S) 2 tab QHS PRN PO CONSTIPATION; Start at 14:00 Simethicone (Mylicon) 80 mg Q6H PRN PO DISTENSION/GAS/BLOATING; Start 05/24/17 at 14:00 Eye Lubricant 1 drop 1 drop QID BOTH EYES Last administered on 05/30/17 09:19 ; Admin Dose 1 DROP; Start 05/24/17 at 17:00 Piperacillin Sod/ Tazobactam Sod (Zosyn 2.25gm/ 50ml (Pmx)) 50 ml @ 100 mls/hr Q8 IVPB Last administered on 05/30/17 05:22; Admin Dose 100 MLS/HR; Start at 16:00 Mupirocin (Bactroban) 1 applic DAILY TOP Last administered on 05/30/17 09:19; Admin Dose 1 APPLIC; Start 05/29/17 at 21:00 BIJAL NETTLES MD May 30, 2017 10:14
[2017-05-30 10:21] LABS: ADD SCAN DIFF NO
[2017-05-30 10:31] LABS: CALCIUM 8.2 mg/dl (8.4-10.2); CREATININE 6.36 mg/dl (0.61-1.24); POTASSIUM 4.2 mmol/L (3.5-5.1)
--- NOTE | 2017-05-30 15:59 | CONS ---
Date/Time of Note Date/Time of Note DATE: 05/30/17 TIME: 15:40 Consult Date/Type/Reason Admit Date/Time May 24, 2017 at 12:52 Initial Consult Date 05/26/17 Type of Consultation: nephrology Subjective awake, tries to communicate, family says answering questions, coughing no phlegm. Objective Vital Signs Date Time Temp Pulse Resp B/P Pulse Ox O2 Delivery O2 Flow Rate FiO2 05/30/17 13:00 89 05/30/17 13:00 18 05/30/17 08:00 Nasal Cannula 2.0 05/30/17 07:55 98.5 146/71 96 Intake and Output 05/29/17 05/29/17 05/30/17 15:00 23:00 07:00 Intake Total 525 ml 575 ml 300 ml Output Total 0 ml 0 ml Balance 525 ml 575 ml 300 ml Exam bilateral rhonchi, [facility] regular, abdomen softer, bs present lower extremity bl 1 plus edema Results/Medications Result Diagram: 05/30/17 0939 05/30/17 0939 Results 24 hrs Laboratory Tests Test 05/30/17 09:39 White Blood Count 11.5 H Red Blood Count 3.59 L Hemoglobin 11.4 L Hematocrit 34.7 L Mean Corpuscular Volume 96.7 Mean Corpuscular Hemoglobin 31.8 Mean Corpuscular Hemoglobin Concent 32.9 Red Cell Distribution Width 13.6 Platelet Count 203 Mean Platelet Volume 10.8 H Neutrophils % 74.6 Lymphocytes % 14.1 L Monocytes % 7.8 Eosinophils % 1.6 Basophils % 0.3 Nucleated Red Blood Cells % 0.0 Neutrophils # 8.6 H Lymphocytes # 1.6 Monocytes # 0.9 Eosinophils # 0.2 Basophils # 0.0 Nucleated Red Blood Cells # 0.0 Sodium Level 133 L Potassium Level 4.2 Chloride Level 96 L Carbon Dioxide Level 15 L Anion Gap 26 H Blood Urea Nitrogen 61 H Creatinine 6.36 H Glucose Level 65 #L Calcium Level 8.2 L Medications Current Medications Ondansetron HCl (Zofran Inj) 4 mg Q6H PRN IV NAUSEA AND/OR VOMITING; Start at 14:00 Acetaminophen (Tylenol Tab) 650 mg Q6H PRN PO PAIN LEVEL 1-3 OR FEVER; Start at 14:00 Acetaminophen/ Hydrocodone Bitart ([place] (5/325)) 1 tab Q6H PRN PO MODERATE PAIN LEVEL 4-6; Start 05/24/17 at 14:00 Morphine Sulfate (morphine) 2 mg Q4H PRN IV SEVERE PAIN LEVEL 7-10; Start 05/24 at 14:00 Docusate Sodium (Colace) 100 mg Q12H PRN PO CONSTIPATION; Start 05/24/17 at 14: 00 Magnesium Hydroxide (Milk Of Mag) 30 ml DAILY PRN PO CONSTIPATION; Start at 14:00 Sodium Biphosphate/ Sodium Phosphate (Fleet Enema) 133 ml DAILY PRN [place] CONSTIPATION; Start 05/24/17 at 14:00 Heparin Sodium (Porcine) 5000 unit 5,000 unit Q12 SC Last administered on 09:21; Admin Dose 5,000 UNIT; Start 05/24/17 at 21:00 Sodium Chloride (1/2 NS) 1,000 ml @ 40 mls/hr Q24H IV Last administered on 05:22; Admin Dose 40 MLS/HR; Start 05/24/17 at 13:52 Vancomycin HCl (Vanco Iv Per Pharmacy) VANCOMYCIN PER PHARMACY NOTE XX ; Start 05/24/17 at 14:00 Hydralazine HCl (Apresoline) 10 mg Q6H PRN IV ELEVATED BLOOD PRESSURE; Start at 14:00 Nitroglycerin (Nitroglycerin (Sl Tab) 0.4 Mg) 1 tab Q5M PRN SL ANGINA; Start at 14:00 Amlodipine Besylate (Norvasc) 10 mg DAILY PO ; Start 05/25/17 at 09:00 Carvedilol (Coreg) 12.5 mg BID PO ; Start 05/24/17 at 21:00 Docusate Sodium (Colace) 100 mg BID PO ; Start 05/24/17 at 21:00 Guaifenesin/ Dextromethorphan (Robitussin Dm Liquid Cup) 10 ml QID PRN PO COUGH ; Start 05/24/17 at 14:00 Hydralazine HCl (Apresoline) 50 mg Q8 PO ; Start 05/24/17 at 14:00 Lactulose (Enulose) 20 gm QID PRN PO CONSTIPATION; Start 05/24/17 at 14:00 Multivit/Ca Carb/ B Cmplx/FA/Prenat (Nohemi-Brendan) 1 tab DAILY PO ; Start 05/25/17 at 09:00 Senna/Docusate Sodium (Senokot-S) 2 tab QHS PRN PO CONSTIPATION; Start at 14:00 Simethicone (Mylicon) 80 mg Q6H PRN PO DISTENSION/GAS/BLOATING; Start 05/24/17 at 14:00 Eye Lubricant 1 drop 1 drop QID BOTH EYES Last administered on 05/30/17 09:19 ; Admin Dose 1 DROP; Start 05/24/17 at 17:00 Piperacillin Sod/ Tazobactam Sod (Zosyn 2.25gm/ 50ml (Pmx)) 50 ml @ 100 mls/hr Q8 IVPB Last administered on 05/30/17 14:20; Admin Dose 100 MLS/HR; Start at 16:00 Mupirocin (Bactroban) 1 applic DAILY TOP Last administered on 05/30/17 09:19; Admin Dose 1 APPLIC; Start 05/29/17 at 21:00 Assessment/Plan Chief Complaint/Hosp Course esrd,hd today, done. hypertension controlled anemia, epogen as needed mrsa septicemia, on vancomycin, follow up cs positive, discussed with id, persistent bacteremia, remove catheter, wbc improving new catheter after 48 hours possible pneumonia cs blood positive mrsa 05/26, repeat blood cs 05/28, if persistent hd catheter will have to come out family here, discussed care plan Problems: JEFFRY RAMIREZ MD May 30, 2017 15:59
--- NOTE | 2017-05-30 16:22 | CONS ---
Date/Time of Note Date/Time of Note DATE: 05/30/17 TIME: 16:20 Assessment/Plan Assessment/Plan Chief Complaint/Hosp Course Subjective: No acute changes overnight, patient is laying comfortably in bed, afebrile Microbiology: Blood cultures since admission growing MRSA Indwelling: Left chest permacath Antimicrobials: Vancomycin and Zosyn Diagnostics: 1. Cardiomegaly with congestive heart failure interstitial pulmonary edema with bilateral pleural effusions. The pulmonary edema has worsened as compared to . 2. Consolidative infiltrate/atelectasis obscuring the diaphragms. 3. Dialysis catheter near the junction of the right atrium superior vena cava. 4. Spondylosis of the thoracic spine. Or 5 atherosclerosis of the aortic arch. Physical examination: This is a well-developed obese fragile elderly man who is in no distress. Head atraumatic normocephalic, sclera nonicteric. Neck is supple. Chest rise symmetrical, breath sounds diminished to bases. Heart S1- S2. Abdomen is soft bowel tones hypoactive. Extremities with trace edema. Assessment: 1. MRSA bacteremia, likely line sepsis 2. Pneumonia 3. End-stage renal disease 4. Dementia Plan: Clinically unchanged, 2D echo revealed no vegetations, repeat blood cultures persistently positive. Discussed with nephrology===> pending line change. Continue vancomycin, change Zosyn to gentamicin, follow chest x-ray in a.m. [facility] staff Problems: Consultation Date/Type/Reason Admit Date/Time May 24, 2017 at 12:52 Initial Consult Date 05/26/17 Type of Consultation: Infectious disease Exam/Review of Systems Vital Signs Vitals Vital Signs Date Time Temp Pulse Resp B/P Pulse Ox O2 Delivery O2 Flow Rate FiO2 05/30/17 13:00 89 05/30/17 13:00 18 05/30/17 08:00 Nasal Cannula 2.0 05/30/17 07:55 98.5 146/71 96 Intake and Output 05/29/17 05/29/17 05/30/17 15:00 23:00 07:00 Intake Total 525 ml 575 ml 300 ml Output Total 0 ml 0 ml Balance 525 ml 575 ml 300 ml Results Result Diagram: 05/30/17 0939 05/30/17 0939 Results 24 hrs Laboratory Tests Test 05/30/17 09:39 White Blood Count 11.5 H Red Blood Count 3.59 L Hemoglobin 11.4 L Hematocrit 34.7 L Mean Corpuscular Volume 96.7 Mean Corpuscular Hemoglobin 31.8 Mean Corpuscular Hemoglobin Concent 32.9 Red Cell Distribution Width 13.6 Platelet Count 203 Mean Platelet Volume 10.8 H Neutrophils % 74.6 Lymphocytes % 14.1 L Monocytes % 7.8 Eosinophils % 1.6 Basophils % 0.3 Nucleated Red Blood Cells % 0.0 Neutrophils # 8.6 H Lymphocytes # 1.6 Monocytes # 0.9 Eosinophils # 0.2 Basophils # 0.0 Nucleated Red Blood Cells # 0.0 Sodium Level 133 L Potassium Level 4.2 Chloride Level 96 L Carbon Dioxide Level 15 L Anion Gap 26 H Blood Urea Nitrogen 61 H Creatinine 6.36 H Glucose Level 65 #L Calcium Level 8.2 L Medications Medications Current Medications Ondansetron HCl (Zofran Inj) 4 mg Q6H PRN IV NAUSEA AND/OR VOMITING; Start at 14:00 Acetaminophen (Tylenol Tab) 650 mg Q6H PRN PO PAIN LEVEL 1-3 OR FEVER; Start at 14:00 Acetaminophen/ Hydrocodone Bitart ([place] (5/325)) 1 tab Q6H PRN PO MODERATE PAIN LEVEL 4-6; Start 05/24/17 at 14:00 Morphine Sulfate (morphine) 2 mg Q4H PRN IV SEVERE PAIN LEVEL 7-10; Start 05/24 at 14:00 Docusate Sodium (Colace) 100 mg Q12H PRN PO CONSTIPATION; Start 05/24/17 at 14: 00 Magnesium Hydroxide (Milk Of Mag) 30 ml DAILY PRN PO CONSTIPATION; Start at 14:00 Sodium Biphosphate/ Sodium Phosphate (Fleet Enema) 133 ml DAILY PRN [place] CONSTIPATION; Start 05/24/17 at 14:00 Heparin Sodium (Porcine) 5000 unit 5,000 unit Q12 SC Last administered on 09:21; Admin Dose 5,000 UNIT; Start 05/24/17 at 21:00 Sodium Chloride (1/2 NS) 1,000 ml @ 40 mls/hr Q24H IV Last administered on 05:22; Admin Dose 40 MLS/HR; Start 05/24/17 at 13:52 Vancomycin HCl (Vanco Iv Per Pharmacy) VANCOMYCIN PER PHARMACY NOTE XX ; Start 05/24/17 at 14:00 Hydralazine HCl (Apresoline) 10 mg Q6H PRN IV ELEVATED BLOOD PRESSURE; Start at 14:00 Nitroglycerin (Nitroglycerin (Sl Tab) 0.4 Mg) 1 tab Q5M PRN SL ANGINA; Start at 14:00 Amlodipine Besylate (Norvasc) 10 mg DAILY PO ; Start 05/25/17 at 09:00 Carvedilol (Coreg) 12.5 mg BID PO ; Start 05/24/17 at 21:00 Docusate Sodium (Colace) 100 mg BID PO ; Start 05/24/17 at 21:00 Guaifenesin/ Dextromethorphan (Robitussin Dm Liquid Cup) 10 ml QID PRN PO COUGH ; Start 05/24/17 at 14:00 Hydralazine HCl (Apresoline) 50 mg Q8 PO ; Start 05/24/17 at 14:00 Lactulose (Enulose) 20 gm QID PRN PO CONSTIPATION; Start 05/24/17 at 14:00 Multivit/Ca Carb/ B Cmplx/FA/Prenat (Nohemi-Brendan) 1 tab DAILY PO ; Start 05/25/17 at 09:00 Senna/Docusate Sodium (Senokot-S) 2 tab QHS PRN PO CONSTIPATION; Start at 14:00 Simethicone (Mylicon) 80 mg Q6H PRN PO DISTENSION/GAS/BLOATING; Start 05/24/17 at 14:00 Eye Lubricant 1 drop 1 drop QID BOTH EYES Last administered on 05/30/17 09:19 ; Admin Dose 1 DROP; Start 05/24/17 at 17:00 Piperacillin Sod/ Tazobactam Sod (Zosyn 2.25gm/ 50ml (Pmx)) 50 ml @ 100 mls/hr Q8 IVPB Last administered on 05/30/17 14:20; Admin Dose 100 MLS/HR; Start at 16:00 Mupirocin (Bactroban) 1 applic DAILY TOP Last administered on 05/30/17 09:19; Admin Dose 1 APPLIC; Start 05/29/17 at 21:00 CARROLL RIOS NP May 30, 2017 16:22
[2017-05-30] MEDS ORDERED: GENTAMICIN IV PER PHARMACY XX SCH (16:30)
[2017-05-30] MEDS ORDERED: GENTAMICIN 120 MG/NS (PMX) 100 ML IVPB SCH (18:00)
[2017-05-30] MEDS: ALBUTEROL/IPRATROPIUM (NEB) 3 ML AMP HHN PRN (22:02)
--- NOTE | 2017-05-31 00:41 | RADRPT ---
PROCEDURE: XR Chest. CLINICAL INDICATION: Pneumonia. TECHNIQUE: Single frontal view of the chest. COMPARISON: 05/24/2017. FINDINGS: Cardiomegaly and atherosclerotic calcifications in the thoracic aorta. Double-lumen left central ve nous catheter again seen with tip in the superior vena cava/right atrial junction. Right pleural ef fusion with discoid atelectasis at the right lung base. Left pleural effusion with atelectasis vers us airspace disease.. The osseous structures and soft tissues are unremarkable. IMPRESSION: 1. Small right pleural effusion with discoid atelectasis at the right lung base. 2. Mild left pleural effusion with left lung base atelectasis versus airspace disease. 3. Findings suggest left lung base pneumonia. RPTAT: [facility] Physician Martinez Date Time Electronically viewed and signed by Physician Martinez on 05/31/2017 00:41 RS/
[2017-05-31] MEDS ORDERED: ENALAPRILAT 1.25 MG INJ IV ONE (01:00)
[2017-05-31] MEDS: SOD CHLORIDE 0.45% 1,000 ML IV SCH (02:15)
[2017-05-31 02:19] VITALS: BP 138/68
[2017-05-31] MEDS: PANTOPRAZOLE (EC) 40 MG TAB PO SCH (07:30)
[2017-05-31 08:10] VITALS: BP 152/70; RESP 18
[2017-05-31] MEDS: AMLODIPINE 10 MG TAB PO SCH (09:00)
[2017-05-31] MEDS: DOCUSATE SODIUM 100 MG CAP PO SCH ×2 (09:00→21:00)
[2017-05-31] MEDS: MULTIVIT/CA CARB/B CMPLX/FA TAB PO SCH (09:00)
[2017-05-31] MEDS: ARTIFICIAL TEARS 15 ML OPH BOTH EYES SCH ×4 (09:23→21:15)
[2017-05-31] MEDS: HEPARIN 5,000 UNIT/0.5 ML VIAL SC SCH ×2 (09:26→21:14)
[2017-05-31] MEDS: MUPIROCIN 2% 22 GM OINT TOP SCH (09:27)
[2017-05-31 09:30] LABS: BASOPHILS % 0.2 % (0.0-2.0); EOSINOPHILS # 0.1 10^3/ul (0.0-0.5); EOSINOPHILS % 0.5 % (0.0-7.0); HEMATOCRIT 35.3 % (42.0-52.0); HEMOGLOBIN 11.4 g/dl (14.0-18.0); LYMPHOCYTES # 1.3 10^3/ul (0.8-2.9); MEAN CORPUSCULAR HEMOGLOBIN 31.2 pg (29.0-33.0); MEAN CORPUSCULAR HGB CONC 32.3 g/dl (32.0-37.0); MEAN CORPUSCULAR VOLUME 96.7 fl (82.0-101.0); MEAN PLATELET VOLUME 10.7 fl (7.4-10.4); MONOCYTE # 1.2 10^3/ul (0.3-0.9); MONOCYTES % 10.9 % (0.0-11.0); NEUTROPHIL # 8.3 10^3/ul (1.6-7.5); NEUTROPHILS % 75.3 % (39.0-77.0); PLATELET COUNT 239 10^3/UL (140-415); RED BLOOD COUNT 3.65 10^6/ul (4.70-6.10); RED CELL DISTRIBUTION WIDTH 13.4 % (11.5-14.5)
[2017-05-31 09:38] LABS: CALCIUM 8.6 mg/dl (8.4-10.2); CREATININE 5.13 mg/dl (0.61-1.24); POTASSIUM 4.1 mmol/L (3.5-5.1)
--- NOTE | 2017-05-31 14:03 | CONS ---
Date/Time of Note Date/Time of Note DATE: 05/31/17 TIME: 13:59 Assessment/Plan Assessment/Plan Additional Assessment/Plan 1.MRSA bacteremia sec to infected HD catheter 2.ESRD on HD, TTS 3.Htn sec to ckd 4.Anemia sec to Ckd -Await for vascular surgeon to remove infected HD catheter -Tentative plan for re insertion of HD catheter on mon -HD on mon -Leukocytosis improving. BC on 05/27, 05/30 negative -Monitor bp -Monitor lytes -Renal issues d/w pts family at bedside Consultation Date/Type/Reason Admit Date/Time May 24, 2017 at 12:52 Initial Consult Date 05/26/17 Type of Consultation: Nephrology 24 HR Interval Summary Constitutional: no complaints Exam/Review of Systems Vital Signs Vitals Vital Signs Date Time Temp Pulse Resp B/P Pulse Ox O2 Delivery O2 Flow Rate FiO2 05/31/17 10:56 Nasal Cannula 2.0 05/31/17 08:10 99.0 102 18 152/70 97 Intake and Output 05/30/17 05/30/17 05/31/17 15:00 23:00 07:00 Intake Total 450 ml 620 ml 440 ml Output Total 2400 ml 0 ml Balance -1950 ml 620 ml 440 ml Results Result Diagram: 05/31/17 0831 05/31/17 0831 Results 24 hrs Laboratory Tests Test 05/31/17 08:31 White Blood Count 11.0 H Red Blood Count 3.65 L Hemoglobin 11.4 L Hematocrit 35.3 L Mean Corpuscular Volume 96.7 Mean Corpuscular Hemoglobin 31.2 Mean Corpuscular Hemoglobin Concent 32.3 Red Cell Distribution Width 13.4 Platelet Count 239 Mean Platelet Volume 10.7 H Neutrophils % 75.3 Lymphocytes % 12.0 L Monocytes % 10.9 Eosinophils % 0.5 Basophils % 0.2 Nucleated Red Blood Cells % 0.0 Neutrophils # 8.3 H Lymphocytes # 1.3 Monocytes # 1.2 H Eosinophils # 0.1 Basophils # 0.0 Nucleated Red Blood Cells # 0.0 Sodium Level 138 Potassium Level 4.1 Chloride Level 95 L Carbon Dioxide Level 15 L Anion Gap 32 H Blood Urea Nitrogen 44 #H Creatinine 5.13 H Glucose Level 73 Calcium Level 8.6 Medications Medications Current Medications Ondansetron HCl (Zofran Inj) 4 mg Q6H PRN IV NAUSEA AND/OR VOMITING; Start at 14:00 Acetaminophen (Tylenol Tab) 650 mg Q6H PRN PO PAIN LEVEL 1-3 OR FEVER; Start at 14:00 Acetaminophen/ Hydrocodone Bitart ([place] (5/325)) 1 tab Q6H PRN PO MODERATE PAIN LEVEL 4-6; Start 05/24/17 at 14:00 Morphine Sulfate (morphine) 2 mg Q4H PRN IV SEVERE PAIN LEVEL 7-10; Start 05/24 at 14:00 Docusate Sodium (Colace) 100 mg Q12H PRN PO CONSTIPATION; Start 05/24/17 at 14: 00 Magnesium Hydroxide (Milk Of Mag) 30 ml DAILY PRN PO CONSTIPATION; Start at 14:00 Sodium Biphosphate/ Sodium Phosphate (Fleet Enema) 133 ml DAILY PRN [place] CONSTIPATION; Start 05/24/17 at 14:00 Heparin Sodium (Porcine) 5000 unit 5,000 unit Q12 SC Last administered on 09:26; Admin Dose 5,000 UNIT; Start 05/24/17 at 21:00 Sodium Chloride (1/2 NS) 1,000 ml @ 40 mls/hr Q24H IV Last administered on 05/31 02:15; Admin Dose 40 MLS/HR; Start 05/24/17 at 13:52 Vancomycin HCl (Vanco Iv Per Pharmacy) VANCOMYCIN PER PHARMACY NOTE XX ; Start 05/24/17 at 14:00 Hydralazine HCl (Apresoline) 10 mg Q6H PRN IV ELEVATED BLOOD PRESSURE; Start at 14:00 Nitroglycerin (Nitroglycerin (Sl Tab) 0.4 Mg) 1 tab Q5M PRN SL ANGINA; Start at 14:00 Amlodipine Besylate (Norvasc) 10 mg DAILY PO ; Start 05/25/17 at 09:00 Carvedilol (Coreg) 12.5 mg BID PO ; Start 05/24/17 at 21:00 Docusate Sodium (Colace) 100 mg BID PO ; Start 05/24/17 at 21:00 Guaifenesin/ Dextromethorphan (Robitussin Dm Liquid Cup) 10 ml QID PRN PO COUGH ; Start 05/24/17 at 14:00 Hydralazine HCl (Apresoline) 50 mg Q8 PO ; Start 05/24/17 at 14:00 Lactulose (Enulose) 20 gm QID PRN PO CONSTIPATION; Start 05/24/17 at 14:00 Multivit/Ca Carb/ B Cmplx/FA/Prenat (Nohemi-Brendan) 1 tab DAILY PO ; Start 05/25/17 at 09:00 Senna/Docusate Sodium (Senokot-S) 2 tab QHS PRN PO CONSTIPATION; Start at 14:00 Simethicone (Mylicon) 80 mg Q6H PRN PO DISTENSION/GAS/BLOATING; Start 05/24/17 at 14:00 Eye Lubricant (Artificial Tears Oph) 1 drop QID BOTH EYES Last administered on 05/31/17 12:54; Admin Dose 1 DROP; Start 05/24/17 at 17:00 Mupirocin (Bactroban) 1 applic DAILY TOP Last administered on 05/31/17 09:27; Admin Dose 1 APPLIC; Start 05/29/17 at 21:00 Gentamicin Sulfate (Gentamicin Iv Per Pharmacy) GENTAMICIN PER PHARMACY NOTE XX ; Start 05/30/17 at 16:30 BRYAN ROJAS MD May 31, 2017 14:03
[2017-05-31] MEDS ORDERED: LIDOCAINE 1% (MPF) 30 ML INJ INJ PRN (14:30)
--- NOTE | 2017-05-31 14:47 | CONS ---
Date/Time of Note Date/Time of Note DATE: 05/31/17 TIME: 14:42 Assessment/Plan Assessment/Plan Chief Complaint/Hosp Course ID PROGRESS NOTE * Subjective: Resting comfortable in bed, no complaints offered, no new issues * No fevers, VSS, NAD * Microbiology: Blood cultures since admission growing MRSA * Indwelling: Left chest permacath Physical examination: obese elderly man who is in no distress. Head atraumatic normocephalic, sclera nonicteric. Neck is supple. Chest rise symmetrical, breath sounds diminished to bases. Heart S1-S2. Abdomen is soft bowel tones hypoactive. Extremities with trace edema. ID ASSESSMENT 1. MRSA bacteremia, likely line sepsis * 2D echo revealed no vegetations, repeat blood cultures persistently positive. 2. Pneumonia 3. End-stage renal disease 4. Dementia CURRENT ABX: Vancomycin and GENT s/p Zosyn ID RECOMMENDATIONS * Plan: ===>line change. * Continue vancomycin, GENT Problems: Consultation Date/Type/Reason Admit Date/Time May 24, 2017 at 12:52 Initial Consult Date 05/26/17 Type of Consultation: ID Exam/Review of Systems Vital Signs Vitals Vital Signs Date Time Temp Pulse Resp B/P Pulse Ox O2 Delivery O2 Flow Rate FiO2 05/31/17 10:56 Nasal Cannula 2.0 05/31/17 08:10 99.0 102 18 152/70 97 Intake and Output 05/30/17 05/30/17 05/31/17 15:00 23:00 07:00 Intake Total 450 ml 620 ml 440 ml Output Total 2400 ml 0 ml Balance -1950 ml 620 ml 440 ml Results Result Diagram: 05/31/17 0831 05/31/17 0831 Results 24 hrs Laboratory Tests Test 05/31/17 08:31 White Blood Count 11.0 H Red Blood Count 3.65 L Hemoglobin 11.4 L Hematocrit 35.3 L Mean Corpuscular Volume 96.7 Mean Corpuscular Hemoglobin 31.2 Mean Corpuscular Hemoglobin Concent 32.3 Red Cell Distribution Width 13.4 Platelet Count 239 Mean Platelet Volume 10.7 H Neutrophils % 75.3 Lymphocytes % 12.0 L Monocytes % 10.9 Eosinophils % 0.5 Basophils % 0.2 Nucleated Red Blood Cells % 0.0 Neutrophils # 8.3 H Lymphocytes # 1.3 Monocytes # 1.2 H Eosinophils # 0.1 Basophils # 0.0 Nucleated Red Blood Cells # 0.0 Sodium Level 138 Potassium Level 4.1 Chloride Level 95 L Carbon Dioxide Level 15 L Anion Gap 32 H Blood Urea Nitrogen 44 #H Creatinine 5.13 H Glucose Level 73 Calcium Level 8.6 Medications Medications Current Medications Ondansetron HCl (Zofran Inj) 4 mg Q6H PRN IV NAUSEA AND/OR VOMITING; Start at 14:00 Acetaminophen (Tylenol Tab) 650 mg Q6H PRN PO PAIN LEVEL 1-3 OR FEVER; Start at 14:00 Acetaminophen/ Hydrocodone Bitart ([place] (5/325)) 1 tab Q6H PRN PO MODERATE PAIN LEVEL 4-6; Start 05/24/17 at 14:00 Morphine Sulfate (morphine) 2 mg Q4H PRN IV SEVERE PAIN LEVEL 7-10; Start 05/24 at 14:00 Docusate Sodium (Colace) 100 mg Q12H PRN PO CONSTIPATION; Start 05/24/17 at 14: 00 Magnesium Hydroxide (Milk Of Mag) 30 ml DAILY PRN PO CONSTIPATION; Start at 14:00 Sodium Biphosphate/ Sodium Phosphate (Fleet Enema) 133 ml DAILY PRN [place] CONSTIPATION; Start 05/24/17 at 14:00 Heparin Sodium (Porcine) (Heparin (5000 Units/0.5 ml)) 5,000 unit Q12 SC Last administered on 05/31/17t 09:26; Admin Dose 5,000 UNIT; Start 05/24/17 at 21:00 Vancomycin HCl (Vanco Iv Per Pharmacy) VANCOMYCIN PER PHARMACY NOTE XX ; Start 05/24/17 at 14:00 Hydralazine HCl (Apresoline) 10 mg Q6H PRN IV ELEVATED BLOOD PRESSURE; Start at 14:00 Nitroglycerin (Nitroglycerin (Sl Tab) 0.4 Mg) 1 tab Q5M PRN SL ANGINA; Start at 14:00 Amlodipine Besylate (Norvasc) 10 mg DAILY PO ; Start 05/25/17 at 09:00 Carvedilol (Coreg) 12.5 mg BID PO ; Start 05/24/17 at 21:00 Docusate Sodium (Colace) 100 mg BID PO ; Start 05/24/17 at 21:00 Guaifenesin/ Dextromethorphan (Robitussin Dm Liquid Cup) 10 ml QID PRN PO COUGH ; Start 05/24/17 at 14:00 Hydralazine HCl (Apresoline) 50 mg Q8 PO ; Start 05/24/17 at 14:00 Lactulose (Enulose) 20 gm QID PRN PO CONSTIPATION; Start 05/24/17 at 14:00 Multivit/Ca Carb/ B Cmplx/FA/Prenat (Nohemi-Brendan) 1 tab DAILY PO ; Start 05/25/17 at 09:00 Senna/Docusate Sodium (Senokot-S) 2 tab QHS PRN PO CONSTIPATION; Start at 14:00 Simethicone (Mylicon) 80 mg Q6H PRN PO DISTENSION/GAS/BLOATING; Start 05/24/17 at 14:00 Eye Lubricant (Artificial Tears Oph) 1 drop QID BOTH EYES Last administered on 05/31/17 12:54; Admin Dose 1 DROP; Start 05/24/17 at 17:00 Mupirocin (Bactroban) 1 applic DAILY TOP Last administered on 05/31/17 09:27; Admin Dose 1 APPLIC; Start 05/29/17 at 21:00 Gentamicin Sulfate (Gentamicin Iv Per Pharmacy) GENTAMICIN PER PHARMACY NOTE XX ; Start 05/30/17 at 16:30 Lidocaine (Xylocaine 1% (Mpf)) 30 ml ONCE PRN INJ ANESTHESIA; Start 05/31/17 at 14:30 FELICIA TIRADO NP May 31, 2017 14:47
--- NOTE | 2017-05-31 16:20 | CONS ---
Date/Time of Note Date/Time of Note DATE: 05/31/17 TIME: 16:19 Assessment/Plan Assessment/Plan Chief Complaint/Hosp Course Infected permacatheter Plan to remove the infected permacatheter Risks and benefits of the operation explained to the patient and the family Problems: Consultation Date/Type/Reason Admit Date/Time May 24, 2017 at 12:52 Reason for Consultation Infected permacatheter Constitutional: no complaints ENT: no complaints Respiratory: no complaints Cardiovascular: no complaints Gastrointestinal: no complaints Genitourinary: no complaints Musculoskeletal: no complaints Skin: no complaints Neurologic: no complaints Past Medical History Medical History: angina, GERD Past Surgical History Past Surgical Hx: other Social History Alcohol Use: sober Smoking Status: Never smoker Exam/Review of Systems Vital Signs Vitals Vital Signs Date Time Temp Pulse Resp B/P Pulse Ox O2 Delivery O2 Flow Rate FiO2 05/31/17 10:56 Nasal Cannula 2.0 05/31/17 08:10 99.0 102 18 152/70 97 Intake and Output 05/30/17 05/30/17 05/31/17 15:00 23:00 07:00 Intake Total 450 ml 620 ml 440 ml Output Total 2400 ml 0 ml Balance -1950 ml 620 ml 440 ml Exam ENMT: nl external ears & nose, nl lips & teeth, nl nasal mucosa & septum Neck: non-tender, supple Respiratory: clear to auscultation, normal air movement Cardiovascular: nl pulses, regular rate and rhythm Gastrointestinal: nl liver, spleen, non-tender, soft Results Result Diagram: 05/31/17 0831 05/31/17 0831 Results 24 hrs Laboratory Tests Test 05/31/17 08:31 White Blood Count 11.0 H Red Blood Count 3.65 L Hemoglobin 11.4 L Hematocrit 35.3 L Mean Corpuscular Volume 96.7 Mean Corpuscular Hemoglobin 31.2 Mean Corpuscular Hemoglobin Concent 32.3 Red Cell Distribution Width 13.4 Platelet Count 239 Mean Platelet Volume 10.7 H Neutrophils % 75.3 Lymphocytes % 12.0 L Monocytes % 10.9 Eosinophils % 0.5 Basophils % 0.2 Nucleated Red Blood Cells % 0.0 Neutrophils # 8.3 H Lymphocytes # 1.3 Monocytes # 1.2 H Eosinophils # 0.1 Basophils # 0.0 Nucleated Red Blood Cells # 0.0 Sodium Level 138 Potassium Level 4.1 Chloride Level 95 L Carbon Dioxide Level 15 L Anion Gap 32 H Blood Urea Nitrogen 44 #H Creatinine 5.13 H Glucose Level 73 Calcium Level 8.6 Medications Medications Current Medications Ondansetron HCl (Zofran Inj) 4 mg Q6H PRN IV NAUSEA AND/OR VOMITING; Start at 14:00 Acetaminophen (Tylenol Tab) 650 mg Q6H PRN PO PAIN LEVEL 1-3 OR FEVER; Start at 14:00 Acetaminophen/ Hydrocodone Bitart ([place] (5/325)) 1 tab Q6H PRN PO MODERATE PAIN LEVEL 4-6; Start 05/24/17 at 14:00 Morphine Sulfate (morphine) 2 mg Q4H PRN IV SEVERE PAIN LEVEL 7-10; Start 05/24 at 14:00 Docusate Sodium (Colace) 100 mg Q12H PRN PO CONSTIPATION; Start 05/24/17 at 14: 00 Magnesium Hydroxide (Milk Of Mag) 30 ml DAILY PRN PO CONSTIPATION; Start at 14:00 Sodium Biphosphate/ Sodium Phosphate (Fleet Enema) 133 ml DAILY PRN [place] CONSTIPATION; Start 05/24/17 at 14:00 Heparin Sodium (Porcine) (Heparin (5000 Units/0.5 ml)) 5,000 unit Q12 SC Last administered on 05/31/17t 09:26; Admin Dose 5,000 UNIT; Start 05/24/17 at 21:00 Vancomycin HCl (Vanco Iv Per Pharmacy) VANCOMYCIN PER PHARMACY NOTE XX ; Start 05/24/17 at 14:00 Hydralazine HCl (Apresoline) 10 mg Q6H PRN IV ELEVATED BLOOD PRESSURE; Start at 14:00 Nitroglycerin (Nitroglycerin (Sl Tab) 0.4 Mg) 1 tab Q5M PRN SL ANGINA; Start at 14:00 Amlodipine Besylate (Norvasc) 10 mg DAILY PO ; Start 05/25/17 at 09:00 Carvedilol (Coreg) 12.5 mg BID PO ; Start 05/24/17 at 21:00 Docusate Sodium (Colace) 100 mg BID PO ; Start 05/24/17 at 21:00 Guaifenesin/ Dextromethorphan (Robitussin Dm Liquid Cup) 10 ml QID PRN PO COUGH ; Start 05/24/17 at 14:00 Hydralazine HCl (Apresoline) 50 mg Q8 PO ; Start 05/24/17 at 14:00 Lactulose (Enulose) 20 gm QID PRN PO CONSTIPATION; Start 05/24/17 at 14:00 Multivit/Ca Carb/ B Cmplx/FA/Prenat (Nohemi-Brendan) 1 tab DAILY PO ; Start 05/25/17 at 09:00 Senna/Docusate Sodium (Senokot-S) 2 tab QHS PRN PO CONSTIPATION; Start at 14:00 Simethicone (Mylicon) 80 mg Q6H PRN PO DISTENSION/GAS/BLOATING; Start 05/24/17 at 14:00 Eye Lubricant (Artificial Tears Oph) 1 drop QID BOTH EYES Last administered on 05/31/17 12:54; Admin Dose 1 DROP; Start 05/24/17 at 17:00 Mupirocin (Bactroban) 1 applic DAILY TOP Last administered on 05/31/17 09:27; Admin Dose 1 APPLIC; Start 05/29/17 at 21:00 Gentamicin Sulfate (Gentamicin Iv Per Pharmacy) GENTAMICIN PER PHARMACY NOTE XX ; Start 05/30/17 at 16:30 Lidocaine (Xylocaine 1% (Mpf)) 30 ml ONCE PRN INJ ANESTHESIA; Start 05/31/17 at 14:30 SHAUNNA GEORGES MD May 31, 2017 16:20
--- NOTE | 2017-05-31 16:22 | OPR ---
Date/Time of Note Date/Time of Note DATE: 05/31/17 TIME: 16:20 Operative Report Preoperative Diagnosis Infected permacatheter Postoperative Diagnosis Infected permacatheter Operation Performed Removal of a permacatheter Surgeon: SHAUNNA GEORGES MD Anesthesia: MAC Estimated Blood Loss: none Complications: None Pt Condition Post Procedure: stable Disposition: other Indications Infected permacatheter Operative\Procedure Findings Removal of infected permacatheter Procedure Description Response complications alternative therapies explained to the patient and the family patient was placed in supine position prepped and draped in usual sterile fashion 1% lidocaine was used throughout the operation for local anesthesia the cuff of the catheter was grabbed using a hemostat he was released from the surrounding tissues using Metzenbaum scissors the catheter and the cuff were removed in their entirety appropriate dressings applied patient tolerated procedure well end of dictation SHAUNNA GEORGES MD May 31, 2017 16:22
[2017-05-31 19:35] VITALS: BP 130/62; RESP 20
--- NOTE | 2017-05-31 22:41 | PN ---
Date/Time of Note Date/Time of Note DATE: 05/31/17 TIME: 22:39 Assessment/Plan VTE Prophylaxis VTE Prophylaxis Intervention: SCD's Lines/Catheters IV [facility]ter [facility] (from [facility]): Saline Lock Urinary Cath still in place: No Assessment/Plan Assessment/Plan 1. Sepsis secondary to PNA and possible line sepsis 2. Bilateral perihilar and basilar pneumonia 3. Fluid overload with interstitial pulmonary edema and bilateral pleural effusions with preserved EF on echo 4. End-stage renal disease on hemodialysis 5. Rule out an acute coronary syndrome 6. Chronic normocytic anemia 7. Staph aureus bacteremia r/o line sepsis 8. DO NOT RESUSCITATE 9. Dyslipidemia with low HDL 10. Chronic dementia with intermittent agitation PLAN: HD as per nephrology-pt regular schedule for HD is MWF, here in hospital he is getting TTS schedule Blood culture grew Stahylococcus aureus,ID following, recommending to remove permacath, will have Nephrology to decide on that.( awaiting vascular surgery to remove Catheter) IV abx for PNA and sepsis pt has been lethargic, bedridden, Bp stable, S/p family meeting- DNR status, family wants to hold off on hospice care at this time SCD for DVT Prophylaxis Exam/Review of Systems Vital Signs Vitals Vital Signs Date Time Temp Pulse Resp B/P Pulse Ox O2 Delivery O2 Flow Rate FiO2 05/31/17 20:28 2.0 05/31/17 19:35 98.8 90 20 130/62 96 05/31/17 10:56 Nasal Cannula Intake and Output 05/30/17 05/30/17 05/31/17 15:00 23:00 07:00 Intake Total 450 ml 620 ml 440 ml Output Total 2400 ml 0 ml Balance -1950 ml 620 ml 440 ml Exam GENERAL: The patient lying in bed, no acute distress. looks comfortable, but unresponsive HEENT: Pupils equal, round, react to light. Extraocular muscles intact. NECK: Supple, no thyromegaly. LUNGS: Slightly decreased breath sounds bilaterally. CARDIOVASCULAR: S1, S2 heard. No rubs or gallops. ABDOMEN: Soft, nontender, nondistended. Normal bowel sounds. No rebound or guarding. MUSCULOSKELETAL: No lower extremity edema bilaterally. NEUROLOGIC: Unable to fully assess as the patient is altered Results Result Diagram: 7/1/17 0831 7/1/17 0831 Results 24 hrs Laboratory Tests Test 05/31/17 08:31 White Blood Count 11.0 H Red Blood Count 3.65 L Hemoglobin 11.4 L Hematocrit 35.3 L Mean Corpuscular Volume 96.7 Mean Corpuscular Hemoglobin 31.2 Mean Corpuscular Hemoglobin Concent 32.3 Red Cell Distribution Width 13.4 Platelet Count 239 Mean Platelet Volume 10.7 H Neutrophils % 75.3 Lymphocytes % 12.0 L Monocytes % 10.9 Eosinophils % 0.5 Basophils % 0.2 Nucleated Red Blood Cells % 0.0 Neutrophils # 8.3 H Lymphocytes # 1.3 Monocytes # 1.2 H Eosinophils # 0.1 Basophils # 0.0 Nucleated Red Blood Cells # 0.0 Sodium Level 138 Potassium Level 4.1 Chloride Level 95 L Carbon Dioxide Level 15 L Anion Gap 32 H Blood Urea Nitrogen 44 #H Creatinine 5.13 H Glucose Level 73 Calcium Level 8.6 Medications Medications Current Medications Ondansetron HCl (Zofran Inj) 4 mg Q6H PRN IV NAUSEA AND/OR VOMITING; Start at 14:00 Acetaminophen (Tylenol Tab) 650 mg Q6H PRN PO PAIN LEVEL 1-3 OR FEVER; Start at 14:00 Acetaminophen/ Hydrocodone Bitart ([place] (5/325)) 1 tab Q6H PRN PO MODERATE PAIN LEVEL 4-6; Start 05/24/17 at 14:00 Morphine Sulfate (morphine) 2 mg Q4H PRN IV SEVERE PAIN LEVEL 7-10; Start 05/24 at 14:00 Docusate Sodium (Colace) 100 mg Q12H PRN PO CONSTIPATION; Start 05/24/17 at 14: 00 Magnesium Hydroxide (Milk Of Mag) 30 ml DAILY PRN PO CONSTIPATION; Start at 14:00 Sodium Biphosphate/ Sodium Phosphate (Fleet Enema) 133 ml DAILY PRN [place] CONSTIPATION; Start 05/24/17 at 14:00 Heparin Sodium (Porcine) (Heparin (5000 Units/0.5 ml)) 5,000 unit Q12 SC Last administered on 05/31/17t 21:14; Admin Dose 5,000 UNIT; Start 05/24/17 at 21:00 Vancomycin HCl (Vanco Iv Per Pharmacy) VANCOMYCIN PER PHARMACY NOTE XX ; Start 05/24/17 at 14:00 Hydralazine HCl (Apresoline) 10 mg Q6H PRN IV ELEVATED BLOOD PRESSURE; Start at 14:00 Nitroglycerin (Nitroglycerin (Sl Tab) 0.4 Mg) 1 tab Q5M PRN SL ANGINA; Start at 14:00 Amlodipine Besylate (Norvasc) 10 mg DAILY PO ; Start 05/25/17 at 09:00 Carvedilol (Coreg) 12.5 mg BID PO ; Start 05/24/17 at 21:00 Docusate Sodium (Colace) 100 mg BID PO ; Start 05/24/17 at 21:00 Guaifenesin/ Dextromethorphan (Robitussin Dm Liquid Cup) 10 ml QID PRN PO COUGH ; Start 05/24/17 at 14:00 Hydralazine HCl (Apresoline) 50 mg Q8 PO ; Start 05/24/17 at 14:00 Lactulose (Enulose) 20 gm QID PRN PO CONSTIPATION; Start 05/24/17 at 14:00 Multivit/Ca Carb/ B Cmplx/FA/Prenat ([place]-Brendan) 1 tab DAILY PO ; Start 05/25/17 at 09:00 Senna/Docusate Sodium (Senokot-S) 2 tab QHS PRN PO CONSTIPATION; Start at 14:00 Simethicone (Mylicon) 80 mg Q6H PRN PO DISTENSION/GAS/BLOATING; Start 05/24/17 at 14:00 Eye Lubricant (Artificial Tears Oph) 1 drop QID BOTH EYES Last administered on 05/31/17 21:15; Admin Dose 1 DROP; Start 05/24/17 at 17:00 Mupirocin (Bactroban) 1 applic DAILY TOP Last administered on 05/31/17 09:27; Admin Dose 1 APPLIC; Start 05/29/17 at 21:00 Gentamicin Sulfate (Gentamicin Iv Per Pharmacy) GENTAMICIN PER PHARMACY NOTE XX ; Start 05/30/17 at 16:30 Lidocaine (Xylocaine 1% (Mpf)) 30 ml ONCE PRN INJ ANESTHESIA; Start 05/31/17 at 14:30 BIJAL NETTLES MD May 31, 2017 22:41
[2017-06-01] MEDS: PANTOPRAZOLE (EC) 40 MG TAB PO SCH (07:30)
[2017-06-01 07:52] LABS: CALCIUM 8.7 mg/dl (8.4-10.2); CREATININE 6.45 mg/dl (0.61-1.24); POTASSIUM 4.1 mmol/L (3.5-5.1)
[2017-06-01 08:04] VITALS: BP 169/79; RESP 18
[2017-06-01] MEDS: ARTIFICIAL TEARS 15 ML OPH BOTH EYES SCH ×4 (08:33→20:25)
[2017-06-01] MEDS: MUPIROCIN 2% 22 GM OINT TOP SCH (08:33)
[2017-06-01] MEDS: DOCUSATE SODIUM 100 MG CAP PO SCH ×2 (08:35→20:31)
[2017-06-01] MEDS: HEPARIN 5,000 UNIT/0.5 ML VIAL SC SCH ×2 (08:35→20:28)
[2017-06-01] MEDS: MULTIVIT/CA CARB/B CMPLX/FA TAB PO SCH (08:36)
[2017-06-01] MEDS: AMLODIPINE 10 MG TAB PO SCH (08:36)
[2017-06-01 09:03] LABS: BASOPHILS % 0.4 % (0.0-2.0); EOSINOPHILS # 0.2 10^3/ul (0.0-0.5); EOSINOPHILS % 1.4 % (0.0-7.0); HEMATOCRIT 34.4 % (42.0-52.0); HEMOGLOBIN 11.1 g/dl (14.0-18.0); LYMPHOCYTES # 1.9 10^3/ul (0.8-2.9); LYMPHOCYTES % 17.7 % (15.0-51.0); MEAN CORPUSCULAR HEMOGLOBIN 31.4 pg (29.0-33.0); MEAN CORPUSCULAR HGB CONC 32.3 g/dl (32.0-37.0); MEAN CORPUSCULAR VOLUME 97.2 fl (82.0-101.0); MEAN PLATELET VOLUME 10.7 fl (7.4-10.4); MONOCYTE # 1.1 10^3/ul (0.3-0.9); MONOCYTES % 10.4 % (0.0-11.0); NEUTROPHIL # 7.3 10^3/ul (1.6-7.5); NEUTROPHILS % 68.9 % (39.0-77.0); PLATELET COUNT 265 10^3/UL (140-415); RED BLOOD COUNT 3.54 10^6/ul (4.70-6.10); RED CELL DISTRIBUTION WIDTH 13.4 % (11.5-14.5); WHITE BLOOD COUNT 10.5 10^3/ul (4.8-10.8)
[2017-06-01 09:08] LABS: ADD SCAN DIFF NO
--- NOTE | 2017-06-01 14:35 | PN ---
Date/Time of Note Date/Time of Note DATE: 06/01/17 TIME: 14:34 Assessment/Plan Lines/Catheters IV Catheter Type (from Nrsg): Saline Lock [place] in Place (from Nrsg): No Assessment/Plan Chief Complaint/Hosp Course Infected permacatheter Sp removal permacatheter Plan to place a new permacatheter tomorrow Risks and benefits of the operation explained to the patient and the family Problems: Subjective 24 Hr Interval Summary Constitutional: improved Pain Control: mild Exam/Review of Systems Vital Signs Vitals Vital Signs Date Time Temp Pulse Resp B/P Pulse Ox O2 Delivery O2 Flow Rate FiO2 06/01/17 12:06 2.0 06/01/17 10:48 Nasal Cannula 05/31/17 19:35 98.8 90 20 130/62 96 Intake and Output 05/31/17 05/31/17 06/01/17 15:00 23:00 07:00 Intake Total 360 ml 0 ml 0 ml Output Total 0 ml 0 ml Balance 360 ml 0 ml 0 ml Exam ENMT: mucosa pink and moist, nl external ears & nose, nl lips & teeth, nl nasal mucosa & septum Neck: non-tender, supple Respiratory: clear to auscultation, normal air movement Cardiovascular: nl pulses, regular rate and rhythm Gastrointestinal: nl liver, spleen, non-tender, soft Results Result Diagram: 06/01/17 0650 06/01/17 0650 SHAUNNA GEORGES MD Jun 01, 2017 14:34
[2017-06-01 15:28] VITALS: BP 148/73; PULSE 101
--- NOTE | 2017-06-01 15:32 | PN ---
Date/Time of Note Date/Time of Note DATE: 06/01/17 TIME: 15:31 Assessment/Plan VTE Prophylaxis VTE Prophylaxis Intervention: SCD's Lines/Catheters IV Catheter Type (from Nrs): Saline Lock Urinary Cath still in place: No Assessment/Plan Assessment/Plan 1. Sepsis secondary to PNA and possible line sepsis 2. Bilateral perihilar and basilar pneumonia 3. Fluid overload with interstitial pulmonary edema and bilateral pleural effusions with preserved EF on echo 4. End-stage renal disease on hemodialysis 5. Rule out an acute coronary syndrome 6. Chronic normocytic anemia 7. Staph aureus bacteremia r/o line sepsis 8. DO NOT RESUSCITATE 9. Dyslipidemia with low HDL 10. Chronic dementia with intermittent agitation PLAN: HD as per nephrology-pt regular schedule for HD is MWF, here in hospital he is getting TTS schedule IV abx for sepsis S/P REMOVAL of Permacath yesterday, plan for reinsertion tomorrow by , pt is not eating, not taking pO meds for BP, BP has been running high, IV hydralazine prn SBP>160 mm hG pt has been lethargic, bedridden, Bp stable, S/p family meeting- DNR status, family wants to hold off on hospice care at this time SCD for DVT Prophylaxis Subjective 24 Hr Interval Summary Free Text/Dictation S/P REMOVAL of Permacath yesterday, plan for reinsertion tomorrow by , pt is not eating, not taking pO meds for BP, BP has been running high Exam/Review of Systems Vital Signs Vitals Vital Signs Date Time Temp Pulse Resp B/P Pulse Ox O2 Delivery O2 Flow Rate FiO2 06/01/17 15:28 101 148/73 06/01/17 12:06 2.0 06/01/17 10:48 Nasal Cannula 06/01/17 08:04 98.6 18 94 Intake and Output 05/31/17 05/31/17 06/01/17 15:00 23:00 07:00 Intake Total 360 ml 0 ml 0 ml Output Total 0 ml 0 ml Balance 360 ml 0 ml 0 ml Exam GENERAL: The patient lying in bed, no acute distress. looks comfortable, but unresponsive HEENT: Pupils equal, round, react to light. Extraocular muscles intact. NECK: Supple, no thyromegaly. LUNGS: Slightly decreased breath sounds bilaterally. CARDIOVASCULAR: S1, S2 heard. No rubs or gallops. ABDOMEN: Soft, nontender, nondistended. Normal bowel sounds. No rebound or guarding. MUSCULOSKELETAL: No lower extremity edema bilaterally. NEUROLOGIC: Unable to fully assess as the patient is altered Results Result Diagram: 06/01/17 0650 06/01/17 0650 Results 24 hrs Laboratory Tests Test 06/01/17 06:50 White Blood Count 10.5 Red Blood Count 3.54 L Hemoglobin 11.1 L Hematocrit 34.4 L Mean Corpuscular Volume 97.2 Mean Corpuscular Hemoglobin 31.4 Mean Corpuscular Hemoglobin Concent 32.3 Red Cell Distribution Width 13.4 Platelet Count 265 Mean Platelet Volume 10.7 H Neutrophils % 68.9 Lymphocytes % 17.7 Monocytes % 10.4 Eosinophils % 1.4 Basophils % 0.4 Nucleated Red Blood Cells % 0.0 Neutrophils # 7.3 Lymphocytes # 1.9 Monocytes # 1.1 H Eosinophils # 0.2 Basophils # 0.0 Nucleated Red Blood Cells # 0.0 Sodium Level 139 Potassium Level 4.1 Chloride Level 97 Carbon Dioxide Level 16 L Anion Gap 30 H Blood Urea Nitrogen 55 H Creatinine 6.45 H Glucose Level 73 Calcium Level 8.7 Medications Medications Current Medications Ondansetron HCl (Zofran Inj) 4 mg Q6H PRN IV NAUSEA AND/OR VOMITING; Start at 14:00 Acetaminophen (Tylenol Tab) 650 mg Q6H PRN PO PAIN LEVEL 1-3 OR FEVER; Start at 14:00 Acetaminophen/ Hydrocodone Bitart ([place] (5/325)) 1 tab Q6H PRN PO MODERATE PAIN LEVEL 4-6; Start 05/24/17 at 14:00 Morphine Sulfate (morphine) 2 mg Q4H PRN IV SEVERE PAIN LEVEL 7-10; Start 05/24 at 14:00 Docusate Sodium (Colace) 100 mg Q12H PRN PO CONSTIPATION; Start 05/24/17 at 14: 00 Magnesium Hydroxide (Milk Of Mag) 30 ml DAILY PRN PO CONSTIPATION; Start at 14:00 Sodium Biphosphate/ Sodium Phosphate (Fleet Enema) 133 ml DAILY PRN [place] CONSTIPATION; Start 05/24/17 at 14:00 Heparin Sodium (Porcine) (Heparin (5000 Units/0.5 ml)) 5,000 unit Q12 SC Last administered on 06/01/17 08:35; Admin Dose 5,000 UNIT; Start 05/24/17 at 21:00 Vancomycin HCl (Vanco Iv Per Pharmacy) VANCOMYCIN PER PHARMACY NOTE XX ; Start 05/24/17 at 14:00 Hydralazine HCl (Apresoline) 10 mg Q6H PRN IV ELEVATED BLOOD PRESSURE; Start at 14:00 Nitroglycerin (Nitroglycerin (Sl Tab) 0.4 Mg) 1 tab Q5M PRN SL ANGINA; Start at 14:00 Amlodipine Besylate (Norvasc) 10 mg DAILY PO ; Start 05/25/17 at 09:00 Carvedilol (Coreg) 12.5 mg BID PO ; Start 05/24/17 at 21:00 Docusate Sodium (Colace) 100 mg BID PO ; Start 05/24/17 at 21:00 Guaifenesin/ Dextromethorphan (Robitussin Dm Liquid Cup) 10 ml QID PRN PO COUGH ; Start 05/24/17 at 14:00 Hydralazine HCl (Apresoline) 50 mg Q8 PO ; Start 05/24/17 at 14:00 Lactulose (Enulose) 20 gm QID PRN PO CONSTIPATION; Start 05/24/17 at 14:00 Multivit/Ca Carb/ B Cmplx/FA/Prenat (Nohemi-Brendan) 1 tab DAILY PO ; Start 05/25/17 at 09:00 Senna/Docusate Sodium (Senokot-S) 2 tab QHS PRN PO CONSTIPATION; Start at 14:00 Simethicone (Mylicon) 80 mg Q6H PRN PO DISTENSION/GAS/BLOATING; Start 05/24/17 at 14:00 Eye Lubricant (Artificial Tears Oph) 1 drop QID BOTH EYES Last administered on 06/01/17 13:08; Admin Dose 1 DROP; Start 05/24/17 at 17:00 Mupirocin (Bactroban) 1 applic DAILY TOP Last administered on 06/01/17 08:33; Admin Dose 1 APPLIC; Start 05/29/17 at 21:00 Gentamicin Sulfate (Gentamicin Iv Per Pharmacy) GENTAMICIN PER PHARMACY NOTE XX ; Start 05/30/17 at 16:30 Lidocaine (Xylocaine 1% (Mpf)) 30 ml ONCE PRN INJ ANESTHESIA; Start 05/31/17 at 14:30 Miscellaneous Information RANDOM VANCOMYCIN LEVEL ... ONCE ONCE XX ; Start 06/02 at 05:00; Stop 06/02/17 at 05:01 Potassium Chloride/Dextrose/ Sod Cl (D5-1/2ns + KCl 10 Meq) 1,000 ml @ 50 mls/ hr Q20H IV ; Start 06/01/17 at 15:30 BIJAL NETTLES MD Jun 01, 2017 15:32
[2017-06-01] MEDS ORDERED: SOD CHLORIDE 0.9% 1,000 ML IV PRN (16:15)
--- NOTE | 2017-06-01 16:41 | CONS ---
Date/Time of Note Date/Time of Note DATE: 06/01/17 TIME: 16:23 Consultation Date/Type/Reason Admit Date/Time May 24, 2017 at 12:52 Initial Consult Date 05/26/17 Type of Consultation: ID Exam/Review of Systems Vital Signs Vitals Vital Signs Date Time Temp Pulse Resp B/P Pulse Ox O2 Delivery O2 Flow Rate FiO2 06/01/17 15:28 101 148/73 06/01/17 12:06 2.0 06/01/17 10:48 Nasal Cannula 06/01/17 08:04 98.6 18 94 Intake and Output 05/31/17 05/31/17 06/01/17 15:00 23:00 07:00 Intake Total 360 ml 0 ml 0 ml Output Total 0 ml 0 ml Balance 360 ml 0 ml 0 ml Results Result Diagram: 06/01/17 0650 06/01/17 0650 Results 24 hrs Laboratory Tests Test 06/01/17 06:50 White Blood Count 10.5 Red Blood Count 3.54 L Hemoglobin 11.1 L Hematocrit 34.4 L Mean Corpuscular Volume 97.2 Mean Corpuscular Hemoglobin 31.4 Mean Corpuscular Hemoglobin Concent 32.3 Red Cell Distribution Width 13.4 Platelet Count 265 Mean Platelet Volume 10.7 H Neutrophils % 68.9 Lymphocytes % 17.7 Monocytes % 10.4 Eosinophils % 1.4 Basophils % 0.4 Nucleated Red Blood Cells % 0.0 Neutrophils # 7.3 Lymphocytes # 1.9 Monocytes # 1.1 H Eosinophils # 0.2 Basophils # 0.0 Nucleated Red Blood Cells # 0.0 Sodium Level 139 Potassium Level 4.1 Chloride Level 97 Carbon Dioxide Level 16 L Anion Gap 30 H Blood Urea Nitrogen 55 H Creatinine 6.45 H Glucose Level 73 Calcium Level 8.7 Medications Medications Current Medications Ondansetron HCl (Zofran Inj) 4 mg Q6H PRN IV NAUSEA AND/OR VOMITING; Start at 14:00 Acetaminophen (Tylenol Tab) 650 mg Q6H PRN PO PAIN LEVEL 1-3 OR FEVER; Start at 14:00 Acetaminophen/ Hydrocodone Bitart ([place] (5/325)) 1 tab Q6H PRN PO MODERATE PAIN LEVEL 4-6; Start 05/24/17 at 14:00 Morphine Sulfate (morphine) 2 mg Q4H PRN IV SEVERE PAIN LEVEL 7-10; Start 05/24 at 14:00 Docusate Sodium (Colace) 100 mg Q12H PRN PO CONSTIPATION; Start 05/24/17 at 14: 00 Magnesium Hydroxide (Milk Of Mag) 30 ml DAILY PRN PO CONSTIPATION; Start at 14:00 Sodium Biphosphate/ Sodium Phosphate (Fleet Enema) 133 ml DAILY PRN [place] CONSTIPATION; Start 05/24/17 at 14:00 Heparin Sodium (Porcine) (Heparin (5000 Units/0.5 ml)) 5,000 unit Q12 SC Last administered on 06/01/17t 08:35; Admin Dose 5,000 UNIT; Start 05/24/17 at 21:00 Vancomycin HCl (Vanco Iv Per Pharmacy) VANCOMYCIN PER PHARMACY NOTE XX ; Start 05/24/17 at 14:00 Hydralazine HCl (Apresoline) 10 mg Q6H PRN IV ELEVATED BLOOD PRESSURE; Start at 14:00 Nitroglycerin (Nitroglycerin (Sl Tab) 0.4 Mg) 1 tab Q5M PRN SL ANGINA; Start at 14:00 Amlodipine Besylate (Norvasc) 10 mg DAILY PO ; Start 05/25/17 at 09:00 Carvedilol (Coreg) 12.5 mg BID PO ; Start 05/24/17 at 21:00 Docusate Sodium (Colace) 100 mg BID PO ; Start 05/24/17 at 21:00 Guaifenesin/ Dextromethorphan (Robitussin Dm Liquid Cup) 10 ml QID PRN PO COUGH ; Start 05/24/17 at 14:00 Hydralazine HCl (Apresoline) 50 mg Q8 PO ; Start 05/24/17 at 14:00 Lactulose (Enulose) 20 gm QID PRN PO CONSTIPATION; Start 05/24/17 at 14:00 Multivit/Ca Carb/ B Cmplx/FA/Prenat (Nohemi-Brendan) 1 tab DAILY PO ; Start 05/25/17 at 09:00 Senna/Docusate Sodium (Senokot-S) 2 tab QHS PRN PO CONSTIPATION; Start at 14:00 Simethicone (Mylicon) 80 mg Q6H PRN PO DISTENSION/GAS/BLOATING; Start 05/24/17 at 14:00 Eye Lubricant (Artificial Tears Oph) 1 drop QID BOTH EYES Last administered on 06/01/17 13:08; Admin Dose 1 DROP; Start 05/24/17 at 17:00 Mupirocin (Bactroban) 1 applic DAILY TOP Last administered on 06/01/17 08:33; Admin Dose 1 APPLIC; Start 05/29/17 at 21:00 Gentamicin Sulfate (Gentamicin Iv Per Pharmacy) GENTAMICIN PER PHARMACY NOTE XX ; Start 05/30/17 at 16:30 Lidocaine (Xylocaine 1% (Mpf)) 30 ml ONCE PRN INJ ANESTHESIA; Start 05/31/17 at 14:30 Miscellaneous Information RANDOM VANCOMYCIN LEVEL ... ONCE ONCE XX ; Start 06/02 at 05:00; Stop 06/02/17 at 05:01 Potassium Chloride/Dextrose/ Sod Cl 1,000 ml @ 50 mls/hr Q20H IV ; Start at 15:30 Sodium Chloride (NS) 1,000 ml @ 0 mls/hr Q0M PRN IV TO KEEP SBP ABOVE 90; Start 06/01/17 at 16:15 PETERSON HOWELL NP Jun 01, 2017 16:35
--- NOTE | 2017-06-01 16:51 | CONS ---
Date/Time of Note Date/Time of Note DATE: 06/01/17 TIME: 16:42 Assessment/Plan Assessment/Plan Chief Complaint/Hosp Course Assessment/Plan Assessment/Plan Chief Complaint/Hosp Course ID PROGRESS NOTE * Subjective: Awake. No Acute Events Overnight. No Acute Distress. * No fevers, VSS, NAD * Microbiology: Blood cultures since admission growing MRSA * Indwelling: Left chest permacath Physical examination: obese elderly man who is in no distress. Head atraumatic normocephalic, sclera nonicteric. Neck is supple. Chest rise symmetrical, breath sounds diminished to bases. Heart S1-S2. Abdomen is soft bowel tones hypoactive. Extremities with trace edema. ID ASSESSMENT 1. MRSA bacteremia, likely line sepsis * 2D echo revealed no vegetations, repeat blood cultures persistently positive. 2. Pneumonia 3. End-stage renal disease 4. Dementia 5. Status Post Removal of Infected Permacatheter. 6. Possible Dysphagia. CURRENT ABX: Vancomycin and GENT s/p Zosyn ID RECOMMENDATIONS * Plan: ===>line change. * Continue Vancomycin, GENTAMICIN. * Speech Therapy Swallow Evaluation. * Aspiration Precautions. Problems: Consultation Date/Type/Reason Admit Date/Time May 24, 2017 at 12:52 Initial Consult Date 05/26/17 Type of Consultation: ID Exam/Review of Systems Vital Signs Vitals Vital Signs Date Time Temp Pulse Resp B/P Pulse Ox O2 Delivery O2 Flow Rate FiO2 06/01/17 15:28 101 148/73 06/01/17 12:06 2.0 06/01/17 10:48 Nasal Cannula 06/01/17 08:04 98.6 18 94 Intake and Output 05/31/17 05/31/17 06/01/17 15:00 23:00 07:00 Intake Total 360 ml 0 ml 0 ml Output Total 0 ml 0 ml Balance 360 ml 0 ml 0 ml Results Result Diagram: 06/01/17 0650 06/01/17 0650 Results 24 hrs Laboratory Tests Test 06/01/17 06:50 White Blood Count 10.5 Red Blood Count 3.54 L Hemoglobin 11.1 L Hematocrit 34.4 L Mean Corpuscular Volume 97.2 Mean Corpuscular Hemoglobin 31.4 Mean Corpuscular Hemoglobin Concent 32.3 Red Cell Distribution Width 13.4 Platelet Count 265 Mean Platelet Volume 10.7 H Neutrophils % 68.9 Lymphocytes % 17.7 Monocytes % 10.4 Eosinophils % 1.4 Basophils % 0.4 Nucleated Red Blood Cells % 0.0 Neutrophils # 7.3 Lymphocytes # 1.9 Monocytes # 1.1 H Eosinophils # 0.2 Basophils # 0.0 Nucleated Red Blood Cells # 0.0 Sodium Level 139 Potassium Level 4.1 Chloride Level 97 Carbon Dioxide Level 16 L Anion Gap 30 H Blood Urea Nitrogen 55 H Creatinine 6.45 H Glucose Level 73 Calcium Level 8.7 Medications Medications Current Medications Ondansetron HCl (Zofran Inj) 4 mg Q6H PRN IV NAUSEA AND/OR VOMITING; Start at 14:00 Acetaminophen (Tylenol Tab) 650 mg Q6H PRN PO PAIN LEVEL 1-3 OR FEVER; Start at 14:00 Acetaminophen/ Hydrocodone Bitart ([place] (5/325)) 1 tab Q6H PRN PO MODERATE PAIN LEVEL 4-6; Start 05/24/17 at 14:00 Morphine Sulfate (morphine) 2 mg Q4H PRN IV SEVERE PAIN LEVEL 7-10; Start 05/24 at 14:00 Docusate Sodium (Colace) 100 mg Q12H PRN PO CONSTIPATION; Start 05/24/17 at 14: 00 Magnesium Hydroxide (Milk Of Mag) 30 ml DAILY PRN PO CONSTIPATION; Start at 14:00 Sodium Biphosphate/ Sodium Phosphate (Fleet Enema) 133 ml DAILY PRN [place] CONSTIPATION; Start 05/24/17 at 14:00 Heparin Sodium (Porcine) (Heparin (5000 Units/0.5 ml)) 5,000 unit Q12 SC Last administered on 06/01/17t 08:35; Admin Dose 5,000 UNIT; Start 05/24/17 at 21:00 Vancomycin HCl (Vanco Iv Per Pharmacy) VANCOMYCIN PER PHARMACY NOTE XX ; Start 05/24/17 at 14:00 Hydralazine HCl (Apresoline) 10 mg Q6H PRN IV ELEVATED BLOOD PRESSURE; Start at 14:00 Nitroglycerin (Nitroglycerin (Sl Tab) 0.4 Mg) 1 tab Q5M PRN SL ANGINA; Start at 14:00 Amlodipine Besylate (Norvasc) 10 mg DAILY PO ; Start 05/25/17 at 09:00 Carvedilol (Coreg) 12.5 mg BID PO ; Start 05/24/17 at 21:00 Docusate Sodium (Colace) 100 mg BID PO ; Start 05/24/17 at 21:00 Guaifenesin/ Dextromethorphan (Robitussin Dm Liquid Cup) 10 ml QID PRN PO COUGH ; Start 05/24/17 at 14:00 Hydralazine HCl (Apresoline) 50 mg Q8 PO ; Start 05/24/17 at 14:00 Lactulose (Enulose) 20 gm QID PRN PO CONSTIPATION; Start 05/24/17 at 14:00 Multivit/Ca Carb/ B Cmplx/FA/Prenat (Nohemi-Brendan) 1 tab DAILY PO ; Start 05/25/17 at 09:00 Senna/Docusate Sodium (Senokot-S) 2 tab QHS PRN PO CONSTIPATION; Start at 14:00 Simethicone (Mylicon) 80 mg Q6H PRN PO DISTENSION/GAS/BLOATING; Start 05/24/17 at 14:00 Eye Lubricant (Artificial Tears Oph) 1 drop QID BOTH EYES Last administered on 06/01/17 13:08; Admin Dose 1 DROP; Start 05/24/17 at 17:00 Mupirocin (Bactroban) 1 applic DAILY TOP Last administered on 06/01/17 08:33; Admin Dose 1 APPLIC; Start 05/29/17 at 21:00 Gentamicin Sulfate (Gentamicin Iv Per Pharmacy) GENTAMICIN PER PHARMACY NOTE XX ; Start 05/30/17 at 16:30 Lidocaine (Xylocaine 1% (Mpf)) 30 ml ONCE PRN INJ ANESTHESIA; Start 05/31/17 at 14:30 Miscellaneous Information RANDOM VANCOMYCIN LEVEL ... ONCE ONCE XX ; Start 06/02 at 05:00; Stop 06/02/17 at 05:01 Potassium Chloride/Dextrose/ Sod Cl 1,000 ml @ 50 mls/hr Q20H IV ; Start at 15:30 Sodium Chloride (NS) 1,000 ml @ 0 mls/hr Q0M PRN IV TO KEEP SBP ABOVE 90; Start 06/01/17 at 16:15 PETERSON HOWELL NP Jun 01, 2017 16:51
[2017-06-01] MEDS: D5W-0.45 NACL + KCL 10 MEQ 1,000 ML IV SCH (16:59)
[2017-06-01 20:06] VITALS: BP 149/72; RESP 18
[2017-06-01 23:35] VITALS: BP 153/67
[2017-06-02] VITALS (13 sets, daily range): BP systolic 114–187; BP diastolic 60–88; PULSE 102–110; RESP 20–22
[2017-06-02] MEDS: hydrALAzine 20 MG INJ IV PRN (04:24)
[2017-06-02 06:16] LABS: BASOPHILS % 0.4 % (0.0-2.0); EOSINOPHILS # 0.2 10^3/ul (0.0-0.5); EOSINOPHILS % 1.7 % (0.0-7.0); HEMATOCRIT 33.8 % (42.0-52.0); HEMOGLOBIN 10.8 g/dl (14.0-18.0); LYMPHOCYTES # 1.4 10^3/ul (0.8-2.9); LYMPHOCYTES % 14.3 % (15.0-51.0); MEAN CORPUSCULAR HEMOGLOBIN 30.9 pg (29.0-33.0); MEAN CORPUSCULAR VOLUME 96.8 fl (82.0-101.0); MEAN PLATELET VOLUME 10.6 fl (7.4-10.4); MONOCYTES % 10.1 % (0.0-11.0); NEUTROPHIL # 7.2 10^3/ul (1.6-7.5); PLATELET COUNT 293 10^3/UL (140-415); RED BLOOD COUNT 3.49 10^6/ul (4.70-6.10); RED CELL DISTRIBUTION WIDTH 13.3 % (11.5-14.5)
[2017-06-02] MEDS: PANTOPRAZOLE (EC) 40 MG TAB PO SCH (06:37)
[2017-06-02 08:13] LABS: CALCIUM 8.7 mg/dl (8.4-10.2); CREATININE 7.74 mg/dl (0.61-1.24); POTASSIUM 4.3 mmol/L (3.5-5.1)
[2017-06-02] MEDS: MULTIVIT/CA CARB/B CMPLX/FA TAB PO SCH (09:00)
[2017-06-02] MEDS: HEPARIN 5,000 UNIT/0.5 ML VIAL SC SCH (09:00)
[2017-06-02] MEDS: AMLODIPINE 10 MG TAB PO SCH (09:00)
[2017-06-02] MEDS: DOCUSATE SODIUM 100 MG CAP PO SCH (09:00)
[2017-06-02] MEDS: MUPIROCIN 2% 22 GM OINT TOP SCH (09:23)
[2017-06-02] MEDS: ARTIFICIAL TEARS 15 ML OPH BOTH EYES SCH ×4 (09:28→21:00)
[2017-06-02] MEDS: D5W-0.45 NACL + KCL 10 MEQ 1,000 ML IV SCH (12:32)
--- NOTE | 2017-06-02 13:17 | PN ---
Date/Time of Note Date/Time of Note DATE: 06/02/17 TIME: 13:14 Assessment/Plan VTE Prophylaxis VTE Prophylaxis Intervention: heparin Lines/Catheters IV Catheter Type (from Nrs): Peripheral IV Urinary Cath still in place: No Assessment/Plan Chief Complaint/Hosp Course S- cough; delirium. family updated. sore w any movement. O- vss PE no pallor/jvd reg s1s2; no m r g ctab bs+ nt nd; no r r g mild edema A/P 1) MRSA line Sepsis; stable cont Vanc/gent. for new Access today. 2) ESRD; mwf hd as outpt; hold heparin for new access. 3) Dementia; DNR 4) Functional Quad; hasnt walked in 1 yr; recomm hospice 5) HAP? cont vanc 6) Anemia 7) Htn/ DL Problems: Exam/Review of Systems Vital Signs Vitals Vital Signs Date Time Temp Pulse Resp B/P Pulse Ox O2 Delivery O2 Flow Rate FiO2 06/02/17 12:34 110 06/02/17 08:25 97.4 22 151/67 95 06/02/17 04:03 2.0 06/01/17 20:35 Nasal Cannula Intake and Output 06/01/17 06/01/17 06/02/17 15:00 23:00 07:00 Intake Total 0 ml 600 ml Output Total 0 ml 0 ml Balance 0 ml 600 ml Results Result Diagram: 06/02/17 0450 06/02/17 0456 Results 24 hrs Laboratory Tests Test 06/02/17 04:50 06/02/17 04:56 White Blood Count 10.0 Red Blood Count 3.49 L Hemoglobin 10.8 L Hematocrit 33.8 L Mean Corpuscular Volume 96.8 Mean Corpuscular Hemoglobin 30.9 Mean Corpuscular Hemoglobin Concent 32.0 Red Cell Distribution Width 13.3 Platelet Count 293 Mean Platelet Volume 10.6 H Neutrophils % 72.0 Lymphocytes % 14.3 L Monocytes % 10.1 Eosinophils % 1.7 Basophils % 0.4 Nucleated Red Blood Cells % 0.0 Neutrophils # 7.2 Lymphocytes # 1.4 Monocytes # 1.0 H Eosinophils # 0.2 Basophils # 0.0 Nucleated Red Blood Cells # 0.0 Sodium Level 140 Potassium Level 4.3 Chloride Level 98 Carbon Dioxide Level 16 L Anion Gap 30 H Blood Urea Nitrogen 62 H Creatinine 7.74 H Glucose Level 101 Calcium Level 8.7 Random Vancomycin Level 18.5 Medications Medications Current Medications Ondansetron HCl (Zofran Inj) 4 mg Q6H PRN IV NAUSEA AND/OR VOMITING; Start at 14:00 Acetaminophen (Tylenol Tab) 650 mg Q6H PRN PO PAIN LEVEL 1-3 OR FEVER; Start at 14:00 Acetaminophen/ Hydrocodone Bitart ([place] (5/325)) 1 tab Q6H PRN PO MODERATE PAIN LEVEL 4-6; Start 05/24/17 at 14:00 Morphine Sulfate (morphine) 2 mg Q4H PRN IV SEVERE PAIN LEVEL 7-10; Start 05/24 at 14:00 Docusate Sodium (Colace) 100 mg Q12H PRN PO CONSTIPATION; Start 05/24/17 at 14: 00 Magnesium Hydroxide (Milk Of Mag) 30 ml DAILY PRN PO CONSTIPATION; Start at 14:00 Sodium Biphosphate/ Sodium Phosphate (Fleet Enema) 133 ml DAILY PRN [place] CONSTIPATION; Start 05/24/17 at 14:00 Heparin Sodium (Porcine) (Heparin (5000 Units/0.5 ml)) 5,000 unit Q12 SC Last administered on 06/01/17 20:28; Admin Dose 5,000 UNIT; Start 05/24/17 at 21:00 Vancomycin HCl (Vanco Iv Per Pharmacy) VANCOMYCIN PER PHARMACY NOTE XX ; Start 05/24/17 at 14:00 Hydralazine HCl (Apresoline) 10 mg Q6H PRN IV ELEVATED BLOOD PRESSURE Last administered on 06/02/17 04:24; Admin Dose 10 MG; Start 05/24/17 at 14:00 Nitroglycerin (Nitroglycerin (Sl Tab) 0.4 Mg) 1 tab Q5M PRN SL ANGINA; Start at 14:00 Amlodipine Besylate (Norvasc) 10 mg DAILY PO ; Start 05/25/17 at 09:00 Carvedilol (Coreg) 12.5 mg BID PO ; Start 05/24/17 at 21:00 Docusate Sodium (Colace) 100 mg BID PO ; Start 05/24/17 at 21:00 Guaifenesin/ Dextromethorphan (Robitussin Dm Liquid Cup) 10 ml QID PRN PO COUGH ; Start 05/24/17 at 14:00 Hydralazine HCl (Apresoline) 50 mg Q8 PO ; Start 05/24/17 at 14:00 Lactulose (Enulose) 20 gm QID PRN PO CONSTIPATION; Start 05/24/17 at 14:00 Multivit/Ca Carb/ B Cmplx/FA/Prenat (Nohemi-Brendan) 1 tab DAILY PO ; Start 05/25/17 at 09:00 Senna/Docusate Sodium (Senokot-S) 2 tab QHS PRN PO CONSTIPATION; Start at 14:00 Simethicone (Mylicon) 80 mg Q6H PRN PO DISTENSION/GAS/BLOATING; Start 05/24/17 at 14:00 Eye Lubricant (Artificial Tears Oph) 1 drop QID BOTH EYES Last administered on 06/02/17 12:34; Admin Dose 1 DROP; Start 05/24/17 at 17:00 Mupirocin (Bactroban) 1 applic DAILY TOP Last administered on 06/02/17 09:23; Admin Dose 1 APPLIC; Start 05/29/17 at 21:00 Gentamicin Sulfate (Gentamicin Iv Per Pharmacy) GENTAMICIN PER PHARMACY NOTE XX ; Start 05/30/17 at 16:30 Lidocaine 30 ml 30 ml ONCE PRN INJ ANESTHESIA; Start 05/31/17 at 14:30 Potassium Chloride/Dextrose/ Sod Cl 1,000 ml @ 50 mls/hr Q20H IV Last administered on 06/02/17 12:32; Admin Dose 50 MLS/HR; Start 06/01/17 at 15:30 Sodium Chloride 1,000 ml @ 0 mls/hr Q0M PRN IV TO KEEP SBP ABOVE 90; Start 06/01 at 16:15 Vancomycin HCl/ Sodium Chloride (Vancocin/NS) 250 ml @ 83.333 mls/ hr Q96H IVPB ; Start 06/02/17 at 21:00 CROW KEENE MD Jun 02, 2017 13:17
[2017-06-02] MEDS: LACTOBACILLUS RHAMNOSUS CAP PO SCH ×2 (13:33→22:00)
--- NOTE | 2017-06-02 14:26 | CONS ---
Date/Time of Note Date/Time of Note DATE: 06/02/17 TIME: 14:25 Assessment/Plan Assessment/Plan Additional Assessment/Plan 1.MRSAbacteremia sec to infected HD catheter. 2.ESRD on HD, MWF 3.Htn sec to Ckd 4.Anemia sec to ckd -Pt for HD catheter placement today by Dr Leija -HD today -Uncontrolled Htn. Pts bp meds on hold prior to HD -Improving leukocytosis. Catheter tip culture positive for MRSA -Monitor lytes Consultation Date/Type/Reason Admit Date/Time May 24, 2017 at 12:52 Initial Consult Date 05/26/17 Type of Consultation: ID [id number] HR Interval Summary Subjective hx not possible: other (Pt NAD) Constitutional: no complaints Exam/Review of Systems Vital Signs Vitals Vital Signs Date Time Temp Pulse Resp B/P Pulse Ox O2 Delivery O2 Flow Rate FiO2 06/02/17 12:34 110 06/02/17 08:25 97.4 22 151/67 95 06/02/17 04:03 2.0 06/01/17 20:35 Nasal Cannula Intake and Output 06/01/17 06/01/17 06/02/17 15:00 23:00 07:00 Intake Total 0 ml 600 ml Output Total 0 ml 0 ml Balance 0 ml 600 ml Results Result Diagram: 06/02/17 0450 06/02/17 0456 Results 24 hrs Laboratory Tests Test 06/02/17 04:50 06/02/17 04:56 White Blood Count 10.0 Red Blood Count 3.49 L Hemoglobin 10.8 L Hematocrit 33.8 L Mean Corpuscular Volume 96.8 Mean Corpuscular Hemoglobin 30.9 Mean Corpuscular Hemoglobin Concent 32.0 Red Cell Distribution Width 13.3 Platelet Count 293 Mean Platelet Volume 10.6 H Neutrophils % 72.0 Lymphocytes % 14.3 L Monocytes % 10.1 Eosinophils % 1.7 Basophils % 0.4 Nucleated Red Blood Cells % 0.0 Neutrophils # 7.2 Lymphocytes # 1.4 Monocytes # 1.0 H Eosinophils # 0.2 Basophils # 0.0 Nucleated Red Blood Cells # 0.0 Sodium Level 140 Potassium Level 4.3 Chloride Level 98 Carbon Dioxide Level 16 L Anion Gap 30 H Blood Urea Nitrogen 62 H Creatinine 7.74 H Glucose Level 101 Calcium Level 8.7 Random Vancomycin Level 18.5 Medications Medications Current Medications Ondansetron HCl (Zofran Inj) 4 mg Q6H PRN IV NAUSEA AND/OR VOMITING; Start at 14:00 Acetaminophen (Tylenol Tab) 650 mg Q6H PRN PO PAIN LEVEL 1-3 OR FEVER; Start at 14:00 Acetaminophen/ Hydrocodone Bitart ([place] (5/325)) 1 tab Q6H PRN PO MODERATE PAIN LEVEL 4-6; Start 05/24/17 at 14:00 Morphine Sulfate (morphine) 2 mg Q4H PRN IV SEVERE PAIN LEVEL 7-10; Start 05/24 at 14:00 Docusate Sodium (Colace) 100 mg Q12H PRN PO CONSTIPATION; Start 05/24/17 at 14: 00 Magnesium Hydroxide (Milk Of Mag) 30 ml DAILY PRN PO CONSTIPATION; Start at 14:00 Sodium Biphosphate/ Sodium Phosphate (Fleet Enema) 133 ml DAILY PRN [place] CONSTIPATION; Start 05/24/17 at 14:00 Vancomycin HCl (Vanco Iv Per Pharmacy) VANCOMYCIN PER PHARMACY NOTE XX ; Start 05/24/17 at 14:00 Hydralazine HCl (Apresoline) 10 mg Q6H PRN IV ELEVATED BLOOD PRESSURE Last administered on 06/02/17t 04:24; Admin Dose 10 MG; Start 05/24/17 at 14:00 Nitroglycerin (Nitroglycerin (Sl Tab) 0.4 Mg) 1 tab Q5M PRN SL ANGINA; Start at 14:00 Amlodipine Besylate (Norvasc) 10 mg DAILY PO ; Start 05/25/17 at 09:00 Carvedilol (Coreg) 12.5 mg BID PO ; Start 05/24/17 at 21:00 Guaifenesin/ Dextromethorphan (Robitussin Dm Liquid Cup) 10 ml QID PRN PO COUGH ; Start 05/24/17 at 14:00 Hydralazine HCl (Apresoline) 50 mg Q8 PO ; Start 05/24/17 at 14:00 Lactulose (Enulose) 20 gm QID PRN PO CONSTIPATION; Start 05/24/17 at 14:00 Multivit/Ca Carb/ B Cmplx/FA/Prenat (Nohemi-Brendan) 1 tab DAILY PO ; Start 05/25/17 at 09:00 Senna/Docusate Sodium (Senokot-S) 2 tab QHS PRN PO CONSTIPATION; Start at 14:00 Simethicone (Mylicon) 80 mg Q6H PRN PO DISTENSION/GAS/BLOATING; Start 05/24/17 at 14:00 Eye Lubricant (Artificial Tears Oph) 1 drop QID BOTH EYES Last administered on 06/02/17 12:34; Admin Dose 1 DROP; Start 05/24/17 at 17:00 Mupirocin (Bactroban) 1 applic DAILY TOP Last administered on 06/02/17 09:23; Admin Dose 1 APPLIC; Start 05/29/17 at 21:00 Gentamicin Sulfate (Gentamicin Iv Per Pharmacy) GENTAMICIN PER PHARMACY NOTE XX ; Start 05/30/17 at 16:30 Lidocaine 30 ml 30 ml ONCE PRN INJ ANESTHESIA; Start 05/31/17 at 14:30 Potassium Chloride/Dextrose/ Sod Cl 1,000 ml @ 50 mls/hr Q20H IV Last administered on 06/02/17 12:32; Admin Dose 50 MLS/HR; Start 06/01/17 at 15:30 Sodium Chloride 1,000 ml @ 0 mls/hr Q0M PRN IV TO KEEP SBP ABOVE 90; Start 06/01 at 16:15 Vancomycin HCl/ Sodium Chloride (Vancocin/NS) 250 ml @ 83.333 mls/ hr Q96H IVPB ; Start 06/02/17 at 21:00 Docusate Sodium (Colace) 100 mg HS PO ; Start 06/02/17 at 21:00 Famotidine (Pepcid) 20 mg HS PO ; Start 06/03/17 at 21:00 Lactobacillus Acidophilus/ Rhamnosus (Culturelle) 1 cap BID PO ; Start 06/02/17 at 14:00 ELVIE HILARIO Jun 02, 2017 14:26
[2017-06-02] MEDS ORDERED: HEPARIN 1000 UNITS/ML 10 ML INJ ONE (17:19)
[2017-06-02] MEDS ORDERED: LIDOCAINE 1% (MDV) 20 ML INJ ONE (17:19)
[2017-06-02] MEDS ORDERED: HEPARIN 1000 UNITS/NS (A-LINE) 1,000 ML ONE (17:20)
[2017-06-02] MEDS ORDERED: IOHEXOL 350MG/ML 50 ML BTL ONE (18:27)
--- NOTE | 2017-06-02 18:45 | OPR ---
Date/Time of Note Date/Time of Note DATE: 06/02/17 TIME: 18:38 Operative Report Preoperative Diagnosis Infected permacatheter Postoperative Diagnosis Infected permacatheter Operation Performed Perm a catheter placement Angioplasty superior vena cava was 6 x 60 mm balloon Angioplasty is right internal jugular vein 6 x 6 60 mm balloon Superior venacavogram Catheter introduction to the superior vena cava Interpretation supervision of the superior venacavogram Fluoroscopy ultrasound guidance into the central vein Surgeon: SHAUNNA GEORGES MD Anesthesia: MAC Estimated Blood Loss: 0 - 10 ml's Complications: None Pt Condition Post Procedure: stable Disposition: other Indications End-stage renal disease Procedure Description Patient was placed in supine position Prepped and draped in usual sterile fashion Timeout was called Under ultrasonic guidance access was gained in the right internal jugular vein Guidewire was advanced through without any difficulties at the junction of the superior vena cava and the right internal jugular vein but the guidewire would not advance Through an angiocatheter venogram was done 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 The Glidewire was advanced through which was then exchanged through the catheter to an Amplatz wire The superior vena cava and right internal jugular vein was gently dilated using a 6 x 60 mm balloon 19 cm tunneled hematemesis catheter was brought into subcutaneous tissue Catheter was advanced into the superior vena cava and right atrium through the introducer sheath The catheter was back pulled back Superior venacavogram was done no evidence of any superior vena caval obstruction was noted The tip of the catheter was placed at the junction of the superior vena cava and right atrium Both ports of the catheter were aspirated and injected using heparin saline solution Catheter was secured to skin using 2-0 silk sutures The next site and exit site was closed using a single 3-0 Vicryl suture in interrupted fashion Patient tolerated procedure well end of dictation SHAUNNA GEORGES MD Jun 02, 2017 18:45
--- NOTE | 2017-06-02 18:58 | CONS ---
Date/Time of Note Date/Time of Note DATE: 06/02/17 TIME: 18:56 Assessment/Plan Assessment/Plan Chief Complaint/Hosp Course Subjective: No acute changes overnight, patient is laying comfortably in bed, afebrile Microbiology: Blood cultures since admission growing MRSA Antimicrobials: Vancomycin gentamicin Physical examination: This is a well-developed obese fragile elderly man who is in no distress. Head atraumatic normocephalic, sclera nonicteric. Neck is supple. Chest rise symmetrical, breath sounds diminished to bases. Heart S1- S2. Abdomen is soft bowel tones hypoactive. Extremities with trace edema. Assessment: 1. MRSA line sepsis, s/p permacath discontinued 2. ?Pneumonia 3. End-stage renal disease 4. Dementia Plan: Clinically stable, continue vancomycin, line holiday, nephrology recommendations [facility] staff Problems: Consultation Date/Type/Reason Admit Date/Time May 24, 2017 at 12:52 Initial Consult Date 05/26/17 Type of Consultation: ID Exam/Review of Systems Vital Signs Vitals Vital Signs Date Time Temp Pulse Resp B/P Pulse Ox O2 Delivery O2 Flow Rate FiO2 06/02/17 12:34 110 06/02/17 09:28 Nasal Cannula 2.0 06/02/17 08:25 97.4 22 151/67 95 Intake and Output 06/01/17 06/01/17 06/02/17 15:00 23:00 07:00 Intake Total 0 ml 600 ml Output Total 0 ml 0 ml Balance 0 ml 600 ml Results Result Diagram: 06/02/17 0450 06/02/17 0456 Results 24 hrs Laboratory Tests Test 06/02/17 04:50 06/02/17 04:56 White Blood Count 10.0 Red Blood Count 3.49 L Hemoglobin 10.8 L Hematocrit 33.8 L Mean Corpuscular Volume 96.8 Mean Corpuscular Hemoglobin 30.9 Mean Corpuscular Hemoglobin Concent 32.0 Red Cell Distribution Width 13.3 Platelet Count 293 Mean Platelet Volume 10.6 H Neutrophils % 72.0 Lymphocytes % 14.3 L Monocytes % 10.1 Eosinophils % 1.7 Basophils % 0.4 Nucleated Red Blood Cells % 0.0 Neutrophils # 7.2 Lymphocytes # 1.4 Monocytes # 1.0 H Eosinophils # 0.2 Basophils # 0.0 Nucleated Red Blood Cells # 0.0 Sodium Level 140 Potassium Level 4.3 Chloride Level 98 Carbon Dioxide Level 16 L Anion Gap 30 H Blood Urea Nitrogen 62 H Creatinine 7.74 H Glucose Level 101 Calcium Level 8.7 Random Vancomycin Level 18.5 Medications Medications Current Medications Ondansetron HCl (Zofran Inj) 4 mg Q6H PRN IV NAUSEA AND/OR VOMITING; Start at 14:00 Acetaminophen (Tylenol Tab) 650 mg Q6H PRN PO PAIN LEVEL 1-3 OR FEVER; Start at 14:00 Acetaminophen/ Hydrocodone Bitart ([place] (5/325)) 1 tab Q6H PRN PO MODERATE PAIN LEVEL 4-6; Start 05/24/17 at 14:00 Morphine Sulfate (morphine) 2 mg Q4H PRN IV SEVERE PAIN LEVEL 7-10; Start 05/24 at 14:00 Docusate Sodium (Colace) 100 mg Q12H PRN PO CONSTIPATION; Start 05/24/17 at 14: 00 Magnesium Hydroxide (Milk Of Mag) 30 ml DAILY PRN PO CONSTIPATION; Start at 14:00 Sodium Biphosphate/ Sodium Phosphate (Fleet Enema) 133 ml DAILY PRN [place] CONSTIPATION; Start 05/24/17 at 14:00 Vancomycin HCl (Vanco Iv Per Pharmacy) VANCOMYCIN PER PHARMACY NOTE XX ; Start 05/24/17 at 14:00 Hydralazine HCl (Apresoline) 10 mg Q6H PRN IV ELEVATED BLOOD PRESSURE Last administered on 06/02/17t 04:24; Admin Dose 10 MG; Start 05/24/17 at 14:00 Nitroglycerin (Nitroglycerin (Sl Tab) 0.4 Mg) 1 tab Q5M PRN SL ANGINA; Start at 14:00 Amlodipine Besylate (Norvasc) 10 mg DAILY PO ; Start 05/25/17 at 09:00 Carvedilol (Coreg) 12.5 mg BID PO ; Start 05/24/17 at 21:00 Guaifenesin/ Dextromethorphan (Robitussin Dm Liquid Cup) 10 ml QID PRN PO COUGH ; Start 05/24/17 at 14:00 Hydralazine HCl (Apresoline) 50 mg Q8 PO ; Start 05/24/17 at 14:00 Lactulose (Enulose) 20 gm QID PRN PO CONSTIPATION; Start 05/24/17 at 14:00 Multivit/Ca Carb/ B Cmplx/FA/Prenat (Nohemi-Brendan) 1 tab DAILY PO ; Start 05/25/17 at 09:00 Senna/Docusate Sodium (Senokot-S) 2 tab QHS PRN PO CONSTIPATION; Start at 14:00 Simethicone (Mylicon) 80 mg Q6H PRN PO DISTENSION/GAS/BLOATING; Start 05/24/17 at 14:00 Eye Lubricant (Artificial Tears Oph) 1 drop QID BOTH EYES Last administered on 06/02/17 17:02; Admin Dose 1 DROP; Start 05/24/17 at 17:00 Mupirocin (Bactroban) 1 applic DAILY TOP Last administered on 06/02/17 09:23; Admin Dose 1 APPLIC; Start 05/29/17 at 21:00 Gentamicin Sulfate (Gentamicin Iv Per Pharmacy) GENTAMICIN PER PHARMACY NOTE XX ; Start 05/30/17 at 16:30 Lidocaine 30 ml 30 ml ONCE PRN INJ ANESTHESIA; Start 05/31/17 at 14:30 Potassium Chloride/Dextrose/ Sod Cl 1,000 ml @ 50 mls/hr Q20H IV Last administered on 06/02/17 12:32; Admin Dose 50 MLS/HR; Start 06/01/17 at 15:30 Sodium Chloride 1,000 ml @ 0 mls/hr Q0M PRN IV TO KEEP SBP ABOVE 90; Start 06/01 at 16:15 Vancomycin HCl/ Sodium Chloride (Vancocin/NS) 250 ml @ 83.333 mls/ hr Q96H IVPB ; Start 06/02/17 at 21:00 Docusate Sodium (Colace) 100 mg HS PO ; Start 06/02/17 at 21:00 Famotidine (Pepcid) 20 mg HS PO ; Start 06/03/17 at 21:00 Lactobacillus Acidophilus/ Rhamnosus (Culturelle) 1 cap BID PO ; Start 06/02/17 at 14:00 CARROLL RIOS NP Jun 02, 2017 18:58
[2017-06-02] MEDS: VANCOMYCIN 1.25 GM in SOD CHLORIDE 0.9% 250 ML IVPB SCH ×2 (21:00→22:39)
[2017-06-02] MEDS ORDERED: DOCUSATE SODIUM 100 MG CAP PO SCH (21:00)
[2017-06-03] VITALS (8 sets, daily range): BP systolic 128–168; BP diastolic 64–89; PULSE 98–116; RESP 16–20
[2017-06-03 04:58] LABS: ADD SCAN DIFF NO
[2017-06-03 05:01] LABS: BASOPHILS % 0.3 % (0.0-2.0); EOSINOPHILS # 0.1 10^3/ul (0.0-0.5); EOSINOPHILS % 1.3 % (0.0-7.0); HEMATOCRIT 32.4 % (42.0-52.0); HEMOGLOBIN 10.7 g/dl (14.0-18.0); LYMPHOCYTES % 10.8 % (15.0-51.0); MEAN PLATELET VOLUME 10.2 fl (7.4-10.4); MONOCYTES % 10.5 % (0.0-11.0); NEUTROPHIL # 7.3 10^3/ul (1.6-7.5); PLATELET COUNT 301 10^3/UL (140-415); RED BLOOD COUNT 3.34 10^6/ul (4.70-6.10); RED CELL DISTRIBUTION WIDTH 13.2 % (11.5-14.5); WHITE BLOOD COUNT 9.6 10^3/ul (4.8-10.8)
[2017-06-03] MEDS: GENTAMICIN 80 MG/NS (PMX) 50 ML IVPB SCH ×2 (05:20→14:48)
[2017-06-03 05:22] LABS: INR 1.27; PT RATIO 1.3
[2017-06-03 05:30] LABS: CALCIUM 8.8 mg/dl (8.4-10.2); CREATININE 5.09 mg/dl (0.61-1.24); POTASSIUM 3.6 mmol/L (3.5-5.1)
[2017-06-03] MEDS: D5W-0.45 NACL + KCL 10 MEQ 1,000 ML IV SCH (06:42)
[2017-06-03] MEDS: ARTIFICIAL TEARS 15 ML OPH BOTH EYES SCH ×4 (08:45→21:46)
[2017-06-03] MEDS: MUPIROCIN 2% 22 GM OINT TOP SCH (08:45)
[2017-06-03] MEDS: LACTOBACILLUS RHAMNOSUS CAP PO SCH (09:00)
[2017-06-03] MEDS: MULTIVIT/CA CARB/B CMPLX/FA TAB PO SCH (09:00)
[2017-06-03] MEDS: AMLODIPINE 10 MG TAB PO SCH (09:00)
--- NOTE | 2017-06-03 10:46 | PN ---
Date/Time of Note Date/Time of Note DATE: 06/03/17 TIME: 10:44 Assessment/Plan VTE Prophylaxis VTE Prophylaxis Intervention: heparin Lines/Catheters IV Catheter Type (from Nrs): Peripheral IV Urinary Cath still in place: No Assessment/Plan Chief Complaint/Hosp Course S- 06/02 cough; delirium. family updated. sore w any movement. 06/03 permacath placed. Dialysis this morning. O- vss ~BP a little high. Dialysis will probably help. PE no pallor/jvd reg s1s2; no m r g ctab bs+ nt nd; no r r g mild edema A/P 1) MRSA line Sepsis; stable cont Vanc/gent. sp new Access. 2) ESRD; [facility] hd as outpt; hold heparin for new access. 3) Dementia; DNR 4) Functional Quad; hasnt walked in 1 yr; recomm hospice. Disposition to snf tomorrow. 5) HAP? cont vanc 6) Anemia 7) Htn/ DL Problems: Exam/Review of Systems Vital Signs Vitals Vital Signs Date Time Temp Pulse Resp B/P Pulse Ox O2 Delivery O2 Flow Rate FiO2 06/03/17 07:40 99.5 110 20 130/64 96 06/02/17 20:00 Nasal Cannula 2.0 Intake and Output 06/02/17 06/02/17 06/03/17 15:00 23:00 07:00 Intake Total 400 ml 800 ml 300 ml Output Total 2500 ml 0 ml Balance 400 ml -1700 ml 300 ml Results Result Diagram: 06/03/17 0430 06/03/17 0430 Results 24 hrs Laboratory Tests Test 06/03/17 04:30 White Blood Count 9.6 Red Blood Count 3.34 L Hemoglobin 10.7 L Hematocrit 32.4 L Mean Corpuscular Volume 97.0 Mean Corpuscular Hemoglobin 32.0 Mean Corpuscular Hemoglobin Concent 33.0 Red Cell Distribution Width 13.2 Platelet Count 301 Mean Platelet Volume 10.2 Neutrophils % 76.0 Lymphocytes % 10.8 L Monocytes % 10.5 Eosinophils % 1.3 Basophils % 0.3 Nucleated Red Blood Cells % 0.0 Neutrophils # 7.3 Lymphocytes # 1.0 Monocytes # 1.0 H Eosinophils # 0.1 Basophils # 0.0 Nucleated Red Blood Cells # 0.0 Prothrombin Time 16.0 H Prothrombin Time Ratio 1.3 INR International Normalized Ratio 1.27 Sodium Level 145 H Potassium Level 3.6 Chloride Level 107 Carbon Dioxide Level 23 Anion Gap 19 #H Blood Urea Nitrogen 32 #H Creatinine 5.09 #H Glucose Level 104 Calcium Level 8.8 Medications Medications Current Medications Ondansetron HCl (Zofran Inj) 4 mg Q6H PRN IV NAUSEA AND/OR VOMITING; Start at 14:00 Acetaminophen (Tylenol Tab) 650 mg Q6H PRN PO PAIN LEVEL 1-3 OR FEVER; Start at 14:00 Acetaminophen/ Hydrocodone Bitart ([place] (5/325)) 1 tab Q6H PRN PO MODERATE PAIN LEVEL 4-6; Start 05/24/17 at 14:00 Morphine Sulfate (morphine) 2 mg Q4H PRN IV SEVERE PAIN LEVEL 7-10; Start 05/24 at 14:00 Docusate Sodium (Colace) 100 mg Q12H PRN PO CONSTIPATION; Start 05/24/17 at 14: 00 Magnesium Hydroxide (Milk Of Mag) 30 ml DAILY PRN PO CONSTIPATION; Start at 14:00 Sodium Biphosphate/ Sodium Phosphate (Fleet Enema) 133 ml DAILY PRN [place] CONSTIPATION; Start 05/24/17 at 14:00 Vancomycin HCl (Vanco Iv Per Pharmacy) VANCOMYCIN PER PHARMACY NOTE XX ; Start 05/24/17 at 14:00 Hydralazine HCl (Apresoline) 10 mg Q6H PRN IV ELEVATED BLOOD PRESSURE Last administered on 06/02/17t 04:24; Admin Dose 10 MG; Start 05/24/17 at 14:00 Nitroglycerin (Nitroglycerin (Sl Tab) 0.4 Mg) 1 tab Q5M PRN SL ANGINA; Start at 14:00 Amlodipine Besylate (Norvasc) 10 mg DAILY PO ; Start 05/25/17 at 09:00 Carvedilol (Coreg) 12.5 mg BID PO ; Start 05/24/17 at 21:00 Guaifenesin/ Dextromethorphan (Robitussin Dm Liquid Cup) 10 ml QID PRN PO COUGH ; Start 05/24/17 at 14:00 Hydralazine HCl (Apresoline) 50 mg Q8 PO ; Start 05/24/17 at 14:00 Lactulose (Enulose) 20 gm QID PRN PO CONSTIPATION; Start 05/24/17 at 14:00 Multivit/Ca Carb/ B Cmplx/FA/Prenat (Nohemi-Brendan) 1 tab DAILY PO ; Start 05/25/17 at 09:00 Senna/Docusate Sodium (Senokot-S) 2 tab QHS PRN PO CONSTIPATION; Start at 14:00 Simethicone (Mylicon) 80 mg Q6H PRN PO DISTENSION/GAS/BLOATING; Start 05/24/17 at 14:00 Eye Lubricant (Artificial Tears Oph) 1 drop QID BOTH EYES Last administered on 06/03/17 08:45; Admin Dose 1 DROP; Start 05/24/17 at 17:00 Mupirocin (Bactroban) 1 applic DAILY TOP Last administered on 06/03/17 08:45; Admin Dose 1 APPLIC; Start 05/29/17 at 21:00 Gentamicin Sulfate (Gentamicin Iv Per Pharmacy) GENTAMICIN PER PHARMACY NOTE XX ; Start 05/30/17 at 16:30 Lidocaine 30 ml 30 ml ONCE PRN INJ ANESTHESIA; Start 05/31/17 at 14:30 Potassium Chloride/Dextrose/ Sod Cl 1,000 ml @ 50 mls/hr Q20H IV Last administered on 06/03/17 06:42; Admin Dose 50 MLS/HR; Start 06/01/17 at 15:30 Sodium Chloride 1,000 ml @ 0 mls/hr Q0M PRN IV TO KEEP SBP ABOVE 90; Start 06/01 at 16:15 Vancomycin HCl/ Sodium Chloride (Vancocin/NS) 250 ml @ 83.333 mls/ hr Q96H IVPB Last administered on 06/02/17 22:39; Admin Dose 83.333 MLS/HR; Start at 21:00 Docusate Sodium (Colace) 100 mg HS PO ; Start 06/02/17 at 21:00 Famotidine (Pepcid) 20 mg HS PO ; Start 06/03/17 at 21:00 Lactobacillus Acidophilus/ Rhamnosus (Culturelle) 1 cap BID PO ; Start 06/02/17 at 14:00 CROW KEENE MD Jun 03, 2017 10:46
[2017-06-03] MEDS: DEXTROSE 5%-0.45% NACL 1,000 ML IV SCH (11:59)
[2017-06-03] MEDS ORDERED: CLONIDINE 0.3 MG/24 HR PATCH TRANSDERM SCH (13:00)
--- NOTE | 2017-06-03 14:10 | CONS ---
Date/Time of Note Date/Time of Note DATE: 06/03/17 TIME: 14:08 Assessment/Plan Assessment/Plan Chief Complaint/Hosp Course Subjective: No acute changes overnight, patient is lethargic, in no distress, afebrile Microbiology: Blood cultures since admission growing MRSA Antimicrobials: Vancomycin, gentamicin Indwelling's: Right chest Fracisco Physical examination: This is a well-developed obese fragile elderly man who is in no distress. Head atraumatic normocephalic, sclera nonicteric. Neck is supple. Chest rise symmetrical, breath sounds diminished to bases. Heart S1- S2. Abdomen is soft bowel tones hypoactive. Extremities with trace edema. Assessment: 1. MRSA line sepsis, s/p permacath discontinued 2. ?Pneumonia 3. End-stage renal disease 4. Dementia Plan: Clinically stable, repeat blood cultures have been negative, patient is status post new permacath, continue vancomycin for 2 more weeks, follow nephrology recommendations. Family is concerned regarding his nutritional status, patient failed swallow evaluation previously, may need NG tube vs PEG [facility] staff Problems: Consultation Date/Type/Reason Admit Date/Time May 24, 2017 at 12:52 Initial Consult Date 05/26/17 Type of Consultation: ID Exam/Review of Systems Vital Signs Vitals Vital Signs Date Time Temp Pulse Resp B/P Pulse Ox O2 Delivery O2 Flow Rate FiO2 06/03/17 10:15 116 17 06/03/17 07:40 99.5 130/64 96 06/02/17 20:00 Nasal Cannula 2.0 Intake and Output 06/02/17 06/02/17 06/03/17 15:00 23:00 07:00 Intake Total 400 ml 800 ml 300 ml Output Total 2500 ml 0 ml Balance 400 ml -1700 ml 300 ml Results Result Diagram: 06/03/17 0430 06/03/17 0430 Results 24 hrs Laboratory Tests Test 06/03/17 04:30 White Blood Count 9.6 Red Blood Count 3.34 L Hemoglobin 10.7 L Hematocrit 32.4 L Mean Corpuscular Volume 97.0 Mean Corpuscular Hemoglobin 32.0 Mean Corpuscular Hemoglobin Concent 33.0 Red Cell Distribution Width 13.2 Platelet Count 301 Mean Platelet Volume 10.2 Neutrophils % 76.0 Lymphocytes % 10.8 L Monocytes % 10.5 Eosinophils % 1.3 Basophils % 0.3 Nucleated Red Blood Cells % 0.0 Neutrophils # 7.3 Lymphocytes # 1.0 Monocytes # 1.0 H Eosinophils # 0.1 Basophils # 0.0 Nucleated Red Blood Cells # 0.0 Prothrombin Time 16.0 H Prothrombin Time Ratio 1.3 INR International Normalized Ratio 1.27 Sodium Level 145 H Potassium Level 3.6 Chloride Level 107 Carbon Dioxide Level 23 Anion Gap 19 #H Blood Urea Nitrogen 32 #H Creatinine 5.09 #H Glucose Level 104 Calcium Level 8.8 Medications Medications Current Medications Ondansetron HCl (Zofran Inj) 4 mg Q6H PRN IV NAUSEA AND/OR VOMITING; Start at 14:00 Acetaminophen (Tylenol Tab) 650 mg Q6H PRN PO PAIN LEVEL 1-3 OR FEVER; Start at 14:00 Acetaminophen/ Hydrocodone Bitart ([place] (5/325)) 1 tab Q6H PRN PO MODERATE PAIN LEVEL 4-6; Start 05/24/17 at 14:00 Morphine Sulfate (morphine) 2 mg Q4H PRN IV SEVERE PAIN LEVEL 7-10; Start 05/24 at 14:00 Docusate Sodium (Colace) 100 mg Q12H PRN PO CONSTIPATION; Start 05/24/17 at 14: 00 Magnesium Hydroxide (Milk Of Mag) 30 ml DAILY PRN PO CONSTIPATION; Start at 14:00 Sodium Biphosphate/ Sodium Phosphate (Fleet Enema) 133 ml DAILY PRN [place] CONSTIPATION; Start 05/24/17 at 14:00 Vancomycin HCl (Vanco Iv Per Pharmacy) VANCOMYCIN PER PHARMACY NOTE XX ; Start 05/24/17 at 14:00 Hydralazine HCl (Apresoline) 10 mg Q6H PRN IV ELEVATED BLOOD PRESSURE Last administered on 06/02/17t 04:24; Admin Dose 10 MG; Start 05/24/17 at 14:00 Nitroglycerin (Nitroglycerin (Sl Tab) 0.4 Mg) 1 tab Q5M PRN SL ANGINA; Start at 14:00 Carvedilol (Coreg) 12.5 mg BID PO ; Start 05/24/17 at 21:00 Guaifenesin/ Dextromethorphan (Robitussin Dm Liquid Cup) 10 ml QID PRN PO COUGH ; Start 05/24/17 at 14:00 Hydralazine HCl (Apresoline) 50 mg Q8 PO ; Start 05/24/17 at 14:00 Lactulose (Enulose) 20 gm QID PRN PO CONSTIPATION; Start 05/24/17 at 14:00 Multivit/Ca Carb/ B Cmplx/FA/Prenat (Nohemi-Brendan) 1 tab DAILY PO ; Start 05/25/17 at 09:00 Senna/Docusate Sodium (Senokot-S) 2 tab QHS PRN PO CONSTIPATION; Start at 14:00 Simethicone (Mylicon) 80 mg Q6H PRN PO DISTENSION/GAS/BLOATING; Start 05/24/17 at 14:00 Eye Lubricant (Artificial Tears Oph) 1 drop QID BOTH EYES Last administered on 06/03/17 13:36; Admin Dose 1 DROP; Start 05/24/17 at 17:00 Mupirocin (Bactroban) 1 applic DAILY TOP Last administered on 06/03/17 08:45; Admin Dose 1 APPLIC; Start 05/29/17 at 21:00 Gentamicin Sulfate (Gentamicin Iv Per Pharmacy) GENTAMICIN PER PHARMACY NOTE XX ; Start 05/30/17 at 16:30 Lidocaine 30 ml 30 ml ONCE PRN INJ ANESTHESIA; Start 05/31/17 at 14:30 Sodium Chloride 1,000 ml @ 0 mls/hr Q0M PRN IV TO KEEP SBP ABOVE 90; Start 06/01 at 16:15 Vancomycin HCl/ Sodium Chloride (Vancocin/NS) 250 ml @ 83.333 mls/ hr Q96H IVPB Last administered on 06/02/17 22:39; Admin Dose 83.333 MLS/HR; Start at 21:00 Clonidine HCl 1 patch 1 patch Q7D TRANSDERM Last administered on 06/03/17 13:38 ; Admin Dose 1 PATCH; Start 06/03/17 at 13:00 Dextrose/Sodium Chloride (D5-1/2ns) 1,000 ml @ 50 mls/hr Q20H IV Last administered on 06/03/17 11:59; Admin Dose 50 MLS/HR; Start 06/03/17 at 12:00 CARROLL RIOS NP Jun 03, 2017 14:10
[2017-06-03] MEDS ORDERED: SOD CHLORIDE 0.9% 1,000 ML IV PRN (14:28)
[2017-06-03] MEDS ORDERED: FAMOTIDINE 20 MG TAB PO SCH (21:00)
[2017-06-03] MEDS: hydrALAzine 20 MG INJ IV PRN (22:33)
[2017-06-04] VITALS (10 sets, daily range): BP systolic 115–152; BP diastolic 59–77; PULSE 101–111; RESP 18–24
[2017-06-04] MEDS: hydrALAzine 20 MG INJ IV PRN (04:48)
[2017-06-04 05:49] LABS: ADD SCAN DIFF NO
[2017-06-04 05:52] LABS: BASOPHILS % 0.3 % (0.0-2.0); EOSINOPHILS # 0.1 10^3/ul (0.0-0.5); EOSINOPHILS % 1.2 % (0.0-7.0); HEMATOCRIT 33.5 % (42.0-52.0); HEMOGLOBIN 10.9 g/dl (14.0-18.0); LYMPHOCYTES # 1.9 10^3/ul (0.8-2.9); LYMPHOCYTES % 16.1 % (15.0-51.0); MEAN CORPUSCULAR HEMOGLOBIN 32.1 pg (29.0-33.0); MEAN CORPUSCULAR HGB CONC 32.5 g/dl (32.0-37.0); MEAN CORPUSCULAR VOLUME 98.5 fl (82.0-101.0); MEAN PLATELET VOLUME 10.2 fl (7.4-10.4); MONOCYTE # 1.4 10^3/ul (0.3-0.9); MONOCYTES % 12.3 % (0.0-11.0); PLATELET COUNT 315 10^3/UL (140-415); RED CELL DISTRIBUTION WIDTH 13.4 % (11.5-14.5); WHITE BLOOD COUNT 11.6 10^3/ul (4.8-10.8)
[2017-06-04 06:15] LABS: CREATININE 4.41 mg/dl (0.61-1.24); POTASSIUM 3.4 mmol/L (3.5-5.1)
[2017-06-04 07:11] LABS: CALCIUM 9.5 mg/dl (8.4-10.2)
[2017-06-04] MEDS: MULTIVIT/CA CARB/B CMPLX/FA TAB PO SCH (09:00)
[2017-06-04] MEDS: DEXTROSE 5%-0.45% NACL 1,000 ML IV SCH (09:29)
[2017-06-04] MEDS: ARTIFICIAL TEARS 15 ML OPH BOTH EYES SCH ×3 (09:30→16:52)
[2017-06-04] MEDS: MUPIROCIN 2% 22 GM OINT TOP SCH (09:30)
--- NOTE | 2017-06-04 14:09 | CONS ---
Date/Time of Note Date/Time of Note DATE: 06/04/17 TIME: 14:08 Assessment/Plan Assessment/Plan Chief Complaint/Hosp Course Subjective: No acute changes overnight, patient is lethargic, in no distress, afebrile Microbiology: Blood cultures since admission growing MRSA Antimicrobials: Vancomycin Indwelling's: Right chest [place] Physical examination: This is a well-developed obese fragile elderly man who is in no distress. Head atraumatic normocephalic, sclera nonicteric. Neck is supple. Chest rise symmetrical, breath sounds diminished to bases. Heart S1- S2. Abdomen is soft bowel tones hypoactive. Extremities with trace edema. Assessment: 1. MRSA line sepsis, s/p permacath discontinued 2. ?Pneumonia 3. End-stage renal disease 4. Dementia Plan: Clinically stable, repeat blood cultures have been negative, patient is status post new permacath, continue vancomycin for 2 more weeks, follow nephrology recommendations. Family is concerned regarding his nutritional status, patient failed swallow evaluation previously, may need NG tube vs PEG. DC gentamicin DW staff Problems: Consultation Date/Type/Reason Admit Date/Time May 24, 2017 at 12:52 Initial Consult Date 05/26/17 Type of Consultation: ID Exam/Review of Systems Vital Signs Vitals Vital Signs Date Time Temp Pulse Resp B/P Pulse Ox O2 Delivery O2 Flow Rate FiO2 06/04/17 11:00 105 18 06/04/17 08:10 99.3 133/61 94 06/04/17 08:00 Nasal Cannula 2.0 Intake and Output 06/03/17 06/03/17 06/04/17 15:00 23:00 07:00 Intake Total 500 ml 350 ml 500 ml Output Total 1800 ml 0 ml 0 ml Balance -1300 ml 350 ml 500 ml Results Result Diagram: 06/04/17 0521 06/04/17 0521 Results 24 hrs Laboratory Tests Test 06/04/17 05:21 White Blood Count 11.6 #H Red Blood Count 3.40 L Hemoglobin 10.9 L Hematocrit 33.5 L Mean Corpuscular Volume 98.5 Mean Corpuscular Hemoglobin 32.1 Mean Corpuscular Hemoglobin Concent 32.5 Red Cell Distribution Width 13.4 Platelet Count 315 Mean Platelet Volume 10.2 Neutrophils % 69.0 Lymphocytes % 16.1 Monocytes % 12.3 H Eosinophils % 1.2 Basophils % 0.3 Nucleated Red Blood Cells % 0.0 Neutrophils # 8.0 H Lymphocytes # 1.9 Monocytes # 1.4 H Eosinophils # 0.1 Basophils # 0.0 Nucleated Red Blood Cells # 0.0 Sodium Level 143 Potassium Level 3.4 L Chloride Level 108 Carbon Dioxide Level 25 Anion Gap 13 Blood Urea Nitrogen 24 H Creatinine 4.41 H Glucose Level 116 Calcium Level 9.5 Medications Medications Current Medications Ondansetron HCl (Zofran Inj) 4 mg Q6H PRN IV NAUSEA AND/OR VOMITING; Start at 14:00 Acetaminophen (Tylenol Tab) 650 mg Q6H PRN PO PAIN LEVEL 1-3 OR FEVER; Start at 14:00 Acetaminophen/ Hydrocodone Bitart ([place] (5/325)) 1 tab Q6H PRN PO MODERATE PAIN LEVEL 4-6; Start 05/24/17 at 14:00 Morphine Sulfate (morphine) 2 mg Q4H PRN IV SEVERE PAIN LEVEL 7-10; Start 05/24 at 14:00 Docusate Sodium (Colace) 100 mg Q12H PRN PO CONSTIPATION; Start 05/24/17 at 14: 00 Magnesium Hydroxide (Milk Of Mag) 30 ml DAILY PRN PO CONSTIPATION; Start at 14:00 Sodium Biphosphate/ Sodium Phosphate (Fleet Enema) 133 ml DAILY PRN [place] CONSTIPATION; Start 05/24/17 at 14:00 Vancomycin HCl (Vanco Iv Per Pharmacy) VANCOMYCIN PER PHARMACY NOTE XX ; Start 05/24/17 at 14:00 Hydralazine HCl (Apresoline) 10 mg Q6H PRN IV ELEVATED BLOOD PRESSURE Last administered on 06/04/17t 04:48; Admin Dose 10 MG; Start 05/24/17 at 14:00 Nitroglycerin (Nitroglycerin (Sl Tab) 0.4 Mg) 1 tab Q5M PRN SL ANGINA; Start at 14:00 Carvedilol (Coreg) 12.5 mg BID PO ; Start 05/24/17 at 21:00 Guaifenesin/ Dextromethorphan (Robitussin Dm Liquid Cup) 10 ml QID PRN PO COUGH ; Start 05/24/17 at 14:00 Hydralazine HCl (Apresoline) 50 mg Q8 PO ; Start 05/24/17 at 14:00 Lactulose (Enulose) 20 gm QID PRN PO CONSTIPATION; Start 05/24/17 at 14:00 Multivit/Ca Carb/ B Cmplx/FA/Prenat (Nohemi-Brendan) 1 tab DAILY PO ; Start 05/25/17 at 09:00 Senna/Docusate Sodium (Senokot-S) 2 tab QHS PRN PO CONSTIPATION; Start at 14:00 Simethicone (Mylicon) 80 mg Q6H PRN PO DISTENSION/GAS/BLOATING; Start 05/24/17 at 14:00 Eye Lubricant (Artificial Tears Oph) 1 drop QID BOTH EYES Last administered on 06/04/17 09:30; Admin Dose 1 DROP; Start 05/24/17 at 17:00 Mupirocin (Bactroban) 1 applic DAILY TOP Last administered on 06/04/17 09:30; Admin Dose 1 APPLIC; Start 05/29/17 at 21:00 Gentamicin Sulfate (Gentamicin Iv Per Pharmacy) GENTAMICIN PER PHARMACY NOTE XX ; Start 05/30/17 at 16:30 Lidocaine 30 ml 30 ml ONCE PRN INJ ANESTHESIA; Start 05/31/17 at 14:30 Sodium Chloride 1,000 ml @ 0 mls/hr Q0M PRN IV TO KEEP SBP ABOVE 90; Start 06/01 at 16:15 Vancomycin HCl/ Sodium Chloride (Vancocin/NS) 250 ml @ 83.333 mls/ hr Q96H IVPB Last administered on 06/02/17 22:39; Admin Dose 83.333 MLS/HR; Start at 21:00 Clonidine HCl 1 patch 1 patch Q7D TRANSDERM Last administered on 06/03/17 13:38 ; Admin Dose 1 PATCH; Start 06/03/17 at 13:00 Dextrose/Sodium Chloride 1,000 ml @ 50 mls/hr Q20H IV Last administered on 06/04 09:29; Admin Dose 50 MLS/HR; Start 06/03/17 at 12:00 Sodium Chloride (NS) 1,000 ml @ 0 mls/hr Q0M PRN IV TO KEEP SBP ABOVE 90; Start 06/03/17 at 14:28 CARROLL RIOS NP Jun 04, 2017 14:09
--- NOTE | 2017-06-04 16:07 | DS ---
Date/Time of Note Date/Time of Note DATE: 06/04/17 TIME: 15:55 Discharge Summary Admission/Discharge Info Admit Date/Time May 24, 2017 at 12:52 Discharge Date/Time 06/04/17 Discharge Diagnosis MRSA sepsis. Patient Condition: Stable Hospital Course 82-year-old dialysis gentleman admitted with fevers. Dialysis catheter removed and which grew out MRSA. Blood cultures showing MRSA. Initial with vancomycin and gent. Sepsis is resolved. He stable and fit for discharge on Vanco for 2 weeks with dialysis. Consider long-term dialysis access. However due to his comorbidities, we had multiple conversations with family including daughter and to discuss hospice. His comorbidities include functional quadriplegia. Patient has not walked in a year. He is demented and only speaks of long-term memories according to family. His quality of life has been confined to a shelter and unfortunately has not progressed well. I again reinforced the consideration of hospice. Additionally has severe dysphagia. Has not progressed with ST therapy. He spits out any attempted oral feeding eval. Family does not want artificial feeding. I agree as the quality of of life would not be any better. Family's vocal music instructor will be by later today. Potentially a had pneumonia. Finishing vancomycin. Discharge plan Back to [facility]. Hospice care consult. I believe Idania was initially involved in care plan here Dialysis to continue unless he goes for hospice. Appointment nephrology 1-[address] Whiting. New medications Vancomycin with dialysis for 2 weeks Lovenox 30 mg daily for 2 weeks Clonidine patch changed once a week IV fluids D5 half-normal at 50 for 3 days Home Meds Reported Medications Olanzapine* (Zyprexa*) 2.5 Mg Tablet, 2.5 MG PO DAILY, #30 TAB 05/24/17 Guaifenesin-Dextromethorphan* (Robitussin* DM) 100MG/10MG/5ML Syrup, 10 ML PO QID Y for COUGH, ML 05/24/17 Ipratropium-Albuterol (Ipratropium-Albuterol) 0.5-3 Mg/3 Ml Ampul.neb, 3 ML INHALATION Q6 Y for WHEEZING AND SOB, #30 VIAL 05/24/17 Albuterol Sulfate* (Albuterol Sulfate* Neb) 0.083%-3 Ml Neb, 2.5 MG NEB QID Y for WHEEZING AND SOB, #30 VIAL 05/24/17 Enoxaparin Sodium* (Lovenox*) 30 Mg/0.3 Ml Disp.syrin, 30 MG SQ DAILY, SYR 05/24/17 Lactulose* (Lactulose*) 20 Gm/30 Ml Solution, 20 GM PO QID Y for CONSTIPATION, ML 05/24/17 Dextran 70/Hypromellose (Artificials Tears Drops) 30 Ml Drops, 1 DROP BOTH EYES QID, BOTTLE 05/24/17 Hydralazine Hcl* (Hydralazine Hcl*) 50 Mg Tab, 50 MG PO Q8, #90 TAB HOLD FOR SBP<110 05/24/17 Docusate Sodium* (Docusate Sodium*) 100 Mg Capsule, 100 MG PO BID, #60 CAP 05/24/17 Amlodipine Besylate* (Amlodipine Besylate*) 10 Mg Tablet, 10 MG PO DAILY, #30 TAB 05/24/17 Pantoprazole* (Protonix*) 40 Mg Tablet.dr, 40 MG PO AC BREAKFAST, TAB 05/24/17 Multivit/Ca Carb/B Cmplx/Fa* (Nohemi-Brendan*) 1 Tab Tab, 1 TAB PO DAILY, TAB 05/24/17 Carvedilol* (Carvedilol*) 12.5 Mg Tablet, 12.5 MG PO BID, #60 TAB HOLD FOR SBP<110 HR <60 05/24/17 Simethicone* (Anti-Gas/80*) 80 Mg Tab.chew, 80 MG PO Q6H Y for DISTENSION/GAS/ BLOATING, TAB.CHEW 01/01/16 Acetaminophen* (Acetaminophen*) 650 Mg Tablet, 650 MG PO Q6H Y for PAIN AND OR ELEVATED TEMP, #30 TAB 01/01/16 Sennosides/Docusate Sodium* (Senna-S*) 1 Tab Tablet, 2 TAB PO QHS Y for CONSTIPATION, TAB 01/01/16 Folic Acid/Vitamin B Comp W-C (Nephrocaps Capsule) 1 Mg Capsule, 1 MG PO DAILY, CAP 01/01/16 Primary Care Provider Not On Staff Doctor Pending Labs Laboratory Tests Test 06/04/17 05:21 White Blood Count 11.610^3/ul (4.8-10.8) Red Blood Count 3.4010^6/ul (4.70-6.10) Hemoglobin 10.9g/dl (14.0-18.0) Hematocrit 33.5% (42.0-52.0) Mean Corpuscular Volume 98.5fl (82.0-101.0) Mean Corpuscular Hemoglobin 32.1pg (29.0-33.0) Mean Corpuscular Hemoglobin Concent 32.5g/dl (32.0-37.0) Red Cell Distribution Width 13.4% (11.5-14.5) Platelet Count 86675^3/UL (140-415) Mean Platelet Volume 10.2fl (7.4-10.4) Neutrophils % 69.0% (39.0-77.0) Lymphocytes % 16.1% (15.0-51.0) Monocytes % 12.3% (0.0-11.0) Eosinophils % 1.2% (0.0-7.0) Basophils % 0.3% (0.0-2.0) Nucleated Red Blood Cells % 0.0/100WBC (0.0-0.0) Neutrophils # 8.010^3/ul (1.6-7.5) Lymphocytes # 1.910^3/ul (0.8-2.9) Monocytes # 1.410^3/ul (0.3-0.9) Eosinophils # 0.110^3/ul (0.0-0.5) Basophils # 0.010^3/ul (0.0-0.1) Nucleated Red Blood Cells # 0.010^3/ul (0.0-0.0) Sodium Level 143mmol/L (135-144) Potassium Level 3.4mmol/L (3.5-5.1) Chloride Level 108mmol/L (97-110) Carbon Dioxide Level 25mmol/L (21-31) Anion Gap 13 (8-16) Blood Urea Nitrogen 24mg/dl (7-20) Creatinine 4.41mg/dl (0.61-1.24) Glucose Level 116mg/dl (70-220) Calcium Level 9.5mg/dl (8.4-10.2) CROW KEENE MD Jun 04, 2017 16:05
--- NOTE | 2017-06-04 16:26 | PDOCDIS ---
Discharge Instructions DIAGNOSIS Discharge Diagnosis MRSA sepsis. CONDITION Patient Condition: Stable HOME CARE INSTRUCTIONS: Special Diet: NPO ACTIVITY: Activity Restrictions: Do not Drive FOLLOW UP/APPOINTMENTS Follow-up Plan [facility] Consult. dialysis to continue. OTHER ORDERS: Other Orders: ST Eval & Treat SCHOOL/WORK RELEASE May return to School/Work on: Jun 04, 2017 CROW KEENE MD Jun 04, 2017 16:26
[2017-06-04] MEDS ORDERED: ENOXAPARIN 30 MG/0.3 ML SYG SC SCH (16:30)
--- NOTE | 2017-06-04 17:27 | CONS ---
Date/Time of Note Date/Time of Note DATE: 06/04/17 TIME: 17:16 Consultation Date/Type/Reason Admit Date/Time May 24, 2017 at 12:52 Initial Consult Date 05/26/17 Type of Consultation: ID [id number] HR Interval Summary Free Text/Dictation Mr Snow is being Dc today to a SNF. He will need to receive Vancomycin for staph septicemia related to an infected Permacath that was removed during this admission. He has a temporary cath through which he receives HD. His regular dialysis Rx are on Friday & Friday and so he will return to [facility] in where he will receive antibiotics. Discussed case with Dr Patton. Family has elected not to have a G-Tube inserted Exam/Review of Systems Vital Signs Vitals Vital Signs Date Time Temp Pulse Resp B/P Pulse Ox O2 Delivery O2 Flow Rate FiO2 06/04/17 11:00 105 18 06/04/17 08:10 99.3 133/61 94 06/04/17 08:00 Nasal Cannula 2.0 Intake and Output 06/03/17 06/03/17 06/04/17 15:00 23:00 07:00 Intake Total 500 ml 350 ml 500 ml Output Total 1800 ml 0 ml 0 ml Balance -1300 ml 350 ml 500 ml Results Result Diagram: 06/04/17 0521 06/04/17 0521 Results 24 hrs Laboratory Tests Test 06/04/17 05:21 White Blood Count 11.6 #H Red Blood Count 3.40 L Hemoglobin 10.9 L Hematocrit 33.5 L Mean Corpuscular Volume 98.5 Mean Corpuscular Hemoglobin 32.1 Mean Corpuscular Hemoglobin Concent 32.5 Red Cell Distribution Width 13.4 Platelet Count 315 Mean Platelet Volume 10.2 Neutrophils % 69.0 Lymphocytes % 16.1 Monocytes % 12.3 H Eosinophils % 1.2 Basophils % 0.3 Nucleated Red Blood Cells % 0.0 Neutrophils # 8.0 H Lymphocytes # 1.9 Monocytes # 1.4 H Eosinophils # 0.1 Basophils # 0.0 Nucleated Red Blood Cells # 0.0 Sodium Level 143 Potassium Level 3.4 L Chloride Level 108 Carbon Dioxide Level 25 Anion Gap 13 Blood Urea Nitrogen 24 H Creatinine 4.41 H Glucose Level 116 Calcium Level 9.5 Medications Medications Current Medications Ondansetron HCl (Zofran Inj) 4 mg Q6H PRN IV NAUSEA AND/OR VOMITING; Start at 14:00 Acetaminophen (Tylenol Tab) 650 mg Q6H PRN PO PAIN LEVEL 1-3 OR FEVER; Start at 14:00 Acetaminophen/ Hydrocodone Bitart ([place] (5/325)) 1 tab Q6H PRN PO MODERATE PAIN LEVEL 4-6; Start 05/24/17 at 14:00 Morphine Sulfate (morphine) 2 mg Q4H PRN IV SEVERE PAIN LEVEL 7-10; Start 05/24 at 14:00 Docusate Sodium (Colace) 100 mg Q12H PRN PO CONSTIPATION; Start 05/24/17 at 14: 00 Magnesium Hydroxide (Milk Of Mag) 30 ml DAILY PRN PO CONSTIPATION; Start at 14:00 Sodium Biphosphate/ Sodium Phosphate (Fleet Enema) 133 ml DAILY PRN [place] CONSTIPATION; Start 05/24/17 at 14:00 Vancomycin HCl (Vanco Iv Per Pharmacy) VANCOMYCIN PER PHARMACY NOTE XX ; Start 05/24/17 at 14:00 Hydralazine HCl (Apresoline) 10 mg Q6H PRN IV ELEVATED BLOOD PRESSURE Last administered on 06/04/17t 04:48; Admin Dose 10 MG; Start 05/24/17 at 14:00 Nitroglycerin (Nitroglycerin (Sl Tab) 0.4 Mg) 1 tab Q5M PRN SL ANGINA; Start at 14:00 Carvedilol (Coreg) 12.5 mg BID PO ; Start 05/24/17 at 21:00 Guaifenesin/ Dextromethorphan (Robitussin Dm Liquid Cup) 10 ml QID PRN PO COUGH ; Start 05/24/17 at 14:00 Hydralazine HCl (Apresoline) 50 mg Q8 PO ; Start 05/24/17 at 14:00 Lactulose (Enulose) 20 gm QID PRN PO CONSTIPATION; Start 05/24/17 at 14:00 Multivit/Ca Carb/ B Cmplx/FA/Prenat (Nohemi-Brendan) 1 tab DAILY PO ; Start 05/25/17 at 09:00 Senna/Docusate Sodium (Senokot-S) 2 tab QHS PRN PO CONSTIPATION; Start at 14:00 Simethicone (Mylicon) 80 mg Q6H PRN PO DISTENSION/GAS/BLOATING; Start 05/24/17 at 14:00 Eye Lubricant (Artificial Tears Oph) 1 drop QID BOTH EYES Last administered on 06/04/17 16:52; Admin Dose 1 DROP; Start 05/24/17 at 17:00 Mupirocin (Bactroban) 1 applic DAILY TOP Last administered on 06/04/17 09:30; Admin Dose 1 APPLIC; Start 05/29/17 at 21:00 Lidocaine 30 ml 30 ml ONCE PRN INJ ANESTHESIA; Start 05/31/17 at 14:30 Sodium Chloride 1,000 ml @ 0 mls/hr Q0M PRN IV TO KEEP SBP ABOVE 90; Start 06/01 at 16:15 Vancomycin HCl/ Sodium Chloride (Vancocin/NS) 250 ml @ 83.333 mls/ hr Q96H IVPB Last administered on 06/02/17 22:39; Admin Dose 83.333 MLS/HR; Start at 21:00 Clonidine HCl 1 patch 1 patch Q7D TRANSDERM Last administered on 06/03/17 13:38 ; Admin Dose 1 PATCH; Start 06/03/17 at 13:00 Dextrose/Sodium Chloride 1,000 ml @ 50 mls/hr Q20H IV Last administered on 06/04 09:29; Admin Dose 50 MLS/HR; Start 06/03/17 at 12:00 Sodium Chloride (NS) 1,000 ml @ 0 mls/hr Q0M PRN IV TO KEEP SBP ABOVE 90; Start 06/03/17 at 14:28 Enoxaparin Sodium (Lovenox) 30 mg DAILY SC Last administered on 06/04/17 16:57 ; Admin Dose 30 MG; Start 06/04/17 at 16:30 LILIA RUSSELL MD Jun 04, 2017 17:27
== END 2017-06-04 19:04 | DRG 252 ==
LOC: E/R 11:12 → PP2 12:52
PROVIDERS: ADMIT Internal Medicine; ATTEND Internal Medicine
PROC: 5A1D60Z (ICD-10-PCS; 2017-05-24)
PROC: 02PYX3Z Removal of Infusion Device from Great Vessel, External Approach (ICD-10-PCS; principal; 2017-05-31)
PROC: 027V3ZZ Dilation of Superior Vena Cava, Percutaneous Approach (ICD-10-PCS; 2017-06-02)
PROC: 057M3ZZ Dilation of Right Internal Jugular Vein, Percutaneous Approach (ICD-10-PCS; 2017-06-02)
PROC: 0JH60XZ Insertion of Tunneled Vascular Access Device into Chest Subcutaneous Tissue and Fascia, Open Approach (ICD-10-PCS; 2017-06-02)
PROC: 02HV33Z Insertion of Infusion Device into Superior Vena Cava, Percutaneous Approach (ICD-10-PCS; 2017-06-02)
DX: T82.7XXA Infection and inflammatory reaction due to other cardiac and vascular devices, implants and grafts, initial encounter (principal); A41.02 Sepsis due to Methicillin resistant Staphylococcus aureus; J18.9 Pneumonia, unspecified organism; G93.40 Encephalopathy, unspecified; N18.6 End stage renal disease; R53.2 Functional quadriplegia; I12.0 Hypertensive chronic kidney disease with stage 5 chronic kidney disease or end stage renal disease; F03.91 Unspecified dementia, unspecified severity, with behavioral disturbance; D63.1 Anemia in chronic kidney disease; D64.9 Anemia, unspecified; Z99.2 Dependence on renal dialysis; Z66 Do not resuscitate; R13.10 Dysphagia, unspecified
CPT/HCPCS: 36415; 71010; 80048; 80053; 80061; 80202; 82550; 82553; 83036; 83605; 83735; 84100; 84439; 84443; 84484; 85025; 85610; 85730; 87040; 87070; 87081; 90935; 92526; 92610; 93005; 93306; 94640; 94664; 96374; 96375; 97166; C1725; C1750; C1769; J0360; J0692; J1580; J1644; J1650; J2543; J3370; J3480; J7042; J7050; P9047; Q9967

== ENCOUNTER 2018-01-11 12:08 | Inpatient (IN) | END 2018-01-14 01:33 | disposition EXP | DRG 871 ==